=== PATIENT | female | born 1955 | race Caucasian/White ===

== ENCOUNTER 2021-12-16 14:05 | Outpatient (CLI) | payer MEDICARE, OTHER, SELFPAY ==
--- NOTE | 2021-12-16 14:30 | CRLHL7_ITS ---
For Patients: As a result of the Century Cures Act, medical imaging exams and procedure reports are released immediately into your electronic medical record. You may view this report before your referring provider. If you have questions, please contact your health care provider. BILATERAL BREAST MRI WITHOUT AND WITH GADOLINIUM CLINICAL HISTORY: At increased risk for breast cancer due to a personal history LEFT breast cancer diagnosed in 2019 treated with mastectomy and chemotherapy. No current breast related concerns. INDICATION FOR BREAST MRI: High-risk screening breast MRI. COMPARISON STUDIES: Breast MRIs 12/18/2020 and 10/01/2019. Mammograms 06/22/2021 and 05/30/2020. CONTRAST: 20 mL Dotarem. TECHNIQUE: The patient was positioned prone using a breast coil. Multiple imaging sequences were obtained using 1-1.5 mm thick slices with no gap. The image sequences include T2-weighted STIR in the axial plane, T1-weighted nonfat-saturated gradient echo in the axial plane, pre- and post-contrast T1-weighted FLASH 3D with fat suppression in the axial plane, and T1-weighted FLASH high resolution 3D with fat suppression in the sagittal plane. Image post-processing was performed on a [employer] workstation. Complex 3D rendering including maximum intensity projections (MIPS) and volumetric renderings were obtained to optimize visualization of the extent of pathology and relationship to the nipple, skin, and chest wall. This aids in determining feasibility of breast conservation surgery. Subtraction, multiplanar reconstruction, mean curve determination, and angiogenesis mapping were also performed. The study was technically adequate. FINDINGS: Amount of Fibroglandular Tissue: Scattered fibroglandular tissue. Breast Background Enhancement: Mild. RIGHT Breast: There is no suspicious mass or enhancement within the breast. LEFT Breast: Status post mastectomy. No suspicious mass or enhancement in the mastectomy bed. Lymph Nodes: No abnormal morphology lymph nodes. IMPRESSIONS AND RECOMMENDATIONS: 1. No MRI evidence of malignancy in the RIGHT breast or LEFT mastectomy bed. 2. Annual screening mammography is recommended. If clinically indicated, continued screening breast MRI may also be performed, staggered at six-month intervals with screening mammography. BI-RADS Category 2: Benign A lay language report of this examination will be provided to the patient. Dictated by Yanet Aaron MD @ 12/17/2021 10:07:57 AM jj/Dictated by: Yanet Aaron MD @ 12/17/2021 10:08:00 AM (Electronically Signed)
== END 2021-12-16 14:06 | disposition home or self-care (01) ==
PROVIDERS: PCP Family Medicine; Visit Provider Nurse Practitioner Family
DX: Z85.3 Personal history of malignant neoplasm of breast (principal); R92.8 Other abnormal and inconclusive findings on diagnostic imaging of breast
CPT/HCPCS: 77049; A9575

== ENCOUNTER 2022-03-15 09:21 | Outpatient (CLI) | payer MEDICARE, OTHER, SELFPAY ==
[2022-03-15 11:14] LABS: Albumin* 4.5 g/dL (3.3-5.0)
[2022-03-15 11:15] LABS: Chloride* 100 mmol/L (96-114); Potassium* 4.4 mmol/L (3.6-5.1); Sodium* 136 mmol/L (135-149)
[2022-03-15 11:17] LABS: Aspartate Amino Transferase* 31 U/L (12-35); Bilirubin Total* 0.9 mg/dL (0.1-1.5); Carbon Dioxide* 31 mmol/L (20-32); Cholesterol* 271 mg/dL (90-199); Creatinine* 0.7 mg/dL (0.5-1.5); Estimated Glomerular Filt Rate 94 ml/min; Total Protein* 6.8 g/dL (6.0-8.3)
[2022-03-15 11:18] LABS: Alanine Aminotransferase* 17 U/L (4-35); Alkaline Phosphatase* 67 U/L (40-150); Blood Urea Nitrogen* 15 mg/dL (7-30); Calcium* 9.2 mg/dL (8.4-10.6); Glucose* 89 mg/dL (60-115); HDL Cholesterol* 84 mg/dL (>=50); LDL Cholesterol Calculated 169 mg/dL (<100); Triglycerides* 90 mg/dL (40-149)
== END 2022-03-15 09:22 | disposition home or self-care (01) ==
LOC: NFLDREF 09:22
PROVIDERS: PCP Internal Medicine; Visit Provider Family Medicine
DX: Z01.419 Encounter for gynecological examination (general) (routine) without abnormal findings (principal); I10 Essential (primary) hypertension; Z13.6 Encounter for screening for cardiovascular disorders
CPT/HCPCS: 80053; 80061

== ENCOUNTER 2022-05-07 09:00 | Outpatient (RCR) | payer MEDICARE, OTHER, SELFPAY ==
[2022-01-14 08:34] LABS: Albumin* 4.3 g/dL (3.3-5.0); Chloride* 95 mmol/L (96-114); Potassium* 3.6 mmol/L (3.6-5.1); Sodium* 132 mmol/L (135-149)
[2022-01-14 08:36] LABS: Bilirubin Total* 0.8 mg/dL (0.1-1.5); Creatinine* 0.7 mg/dL (0.5-1.5); Estimated Glomerular Filt Rate 94 ml/min
[2022-01-14 08:37] LABS: Alanine Aminotransferase* 15 U/L (4-35); Alkaline Phosphatase* 62 U/L (40-150); Aspartate Amino Transferase* 30 U/L (12-35); Blood Urea Nitrogen* 14 mg/dL (7-30); Carbon Dioxide* 29 mmol/L (20-32); Glucose* 103 mg/dL (60-115); Total Protein* 6.8 g/dL (6.0-8.3)
--- NOTE | 2022-04-12 16:27 | ONC.NURNOTE ---
Called pt to discuss upcoming appts; pt notes she has been having a tender area on the base of her right breast, almost on her rib, that she has been watching for a few months. The tenderness is persistent and now is waking her up at night at times. She notes her left breast cancer was in a similar location on her left breast and was not detected on mammogram or US. Pt is currently following high risk screening protocols; had a clear breast MRI 11/2021 and is planning to have a screening mammogram 05/2022 then f/u with María Capellan CNP. Reviewed with Dr. Cox for next steps; he recommends pt be seen by provider for a breast exam, after which need for imaging will be determined. LM for pt work on fitting into provider schedule.
== END 2022-07-13 23:59 | disposition home or self-care (01) ==
LOC: CCIC 09:00
PROVIDERS: PCP Family Medicine; Visit Provider Nurse Practitioner Family
DX: C50.912 Malignant neoplasm of unspecified site of left female breast (principal); Z17.0 Estrogen receptor positive status [ER+]; Z79.811 Long term (current) use of aromatase inhibitors; M85.80 Other specified disorders of bone density and structure, unspecified site
CPT/HCPCS: 36415; 80053; 99212; 99214

== ENCOUNTER 2022-05-13 10:39 | Outpatient (CLI) | payer MEDICARE, OTHER, SELFPAY ==
--- NOTE | 2022-05-13 11:00 | CRLHL7_ITS ---
For Patients: As a result of the Century Cures Act, medical imaging exams and procedure reports are released immediately into your electronic medical record. You may view this report before your referring provider. If you have questions, please contact your health care provider. Indication: Breast cancer Technique: Post contrast CT chest. 75 cc Isovue 370 intravenous contrast. Please note that all CT scans at this facility use dose modulation, iterative reconstruction, and/or weight-based dosing when appropriate to reduce radiation dose to as low as reasonably achievable. Comparison: Breast MRI 12/16/2021. CT chest 04/23/2021. Findings: Postoperative changes left mastectomy again noted. No intrathoracic adenopathy. Normal right breast tissue. Lungs are clear without pleural effusion, infiltrate, edema or pneumothorax. No pulmonary nodule. No fracture or intrinsic osseous lesion. Upper abdomen normal. Impression: Status post left mastectomy. No evidence of metastatic disease. Please note that all CT scans at this facility use dose modulation, iterative reconstruction, and/or weight-based dosing when appropriate to reduce radiation dose to as low as reasonably achievable. Dictated by Renato Hayes MD @ 05/13/2022 12:21:20 PM (Electronically Signed)
[2022-05-13 11:40] LABS: Creatinine* 0.7 mg/dL (0.5-1.5); Estimated Glomerular Filt Rate 94 ml/min
--- NOTE | 2022-05-13 15:42 | ONC.NURNOTE ---
Reviewed Chest CT results via phone with pt showing no evidence of metastatic disease. BNN to f/u with [facility] team to determine f/u and next steps. Pt agreeable to this plan.
== END 2022-05-13 10:40 | disposition home or self-care (01) ==
PROVIDERS: PCP Internal Medicine; Visit Provider Nurse Practitioner Family
DX: C50.919 Malignant neoplasm of unspecified site of unspecified female breast (principal)
CPT/HCPCS: 36415; 71260; 82565; Q9967

== ENCOUNTER 2022-05-20 14:34 | Outpatient (CLI) | payer MEDICARE, OTHER, SELFPAY ==
--- NOTE | 2022-05-20 15:00 | CRLHL7_ITS ---
For Patients: As a result of the Century Cures Act, medical imaging exams and procedure reports are released immediately into your electronic medical record. You may view this report before your referring provider. If you have questions, please contact your health care provider. DXA BONE MINERAL DENSITY STUDY, 05/20/2022 Reason for exam: Osteoporosis. Current height (inches): 64.5 Weight (lbs.): 162.0 Menopause age: 47 Ethnicity: White 1. Have you had a previous hip or vertebral fracture? No. 2. Have you had any fractures during your adult life which did not result from significant trauma (e.g., auto accident)? No. 3. Did either of your parents have a hip fracture? Yes. 4. Do you smoke? No. 5. Have you ever taken Glucocorticoids? No. 6. Do you have rheumatoid arthritis? No. 7. Do you have secondary osteoporosis? Yes. 8. Do you drink 3 or more alcoholic drinks per day? No. 9. Are you being treated for osteoporosis? Yes. 10. Have you ever taken any of the following medications: Actonel, Evista, Fosamax, Miacalcin, Reclast, Boniva, Forteo, HRT (i.e., estrogen/hormone therapy), Protelos, Prolia, Vitamin D, Calcium, other ??? please specify. ANSWER: Yes; Fosamax, Reclast, vitamin D, calcium. 11. Do you have any of the following medical conditions: Anorexia or bulimia, asthma or emphysema, end stage renal disease, hyperparathyroidism, any seizure disorders, cancer, inflammatory bowel diseases, hysterectomy, other ??? please specify. ANSWER: Yes; cancer, hysterectomy. 12. What was your maximum height (inches)? 66. 13. Do you perform weightbearing exercise regularly? Yes. 14. Do you regularly consume dairy products? Yes. 15. Do you drink caffeinated beverages? Yes. 16. At what age did your period start? 11. 17. Are you premenopausal? No. 18. How many full-term pregnancies have you had? 3. 19. Have you ever missed your period for more than 6 months in a row (not including or menopause)? Yes. TECHNIQUE: Bone mineral density study was performed using the [employer]. FINDINGS: The results of the study expressed as bone mineral density (BMD) are as follows: Lumbar Spine L1 to L4: BMD: 0.710 g/cm2. T-score: -3.1. Z-score: -1.0. Neck Left: BMD: 0.643 g/cm2. T-score: -1.9. Z-score: -0.1. Right: BMD: 0.641 g/cm2. T-score: -1.9. Z-score: -0.1. Total Left: BMD: 0.805 g/cm2. T-score: -1.1. Z-score: 0.3. Right: BMD: 0.790 g/cm2. T-score: -1.2. Z-score: 0.2. IMPRESSION: Osteoporosis. COMPARISON: Compared with scan of 06/19/2020, the bone mineral density has increased by 3.0% at the spine and increased by 3.6% at the hip. *Comparison exams done prior to 09/2019 were performed on different unit, [employer]. ADAN YEPEZ M.D. Diagnostic/Nuclear Medicine Radiologist [email or web address] Transcribed: 5:[address]/Dictated by: Adan Yepez MD @ 05/20/2022 4:36:00 PM (Electronically Signed)
== END 2022-05-20 14:35 | disposition home or self-care (01) ==
LOC: RAD 14:35
PROVIDERS: PCP Internal Medicine; Visit Provider Nurse Practitioner Family
DX: M85.80 Other specified disorders of bone density and structure, unspecified site (principal); M81.0 Age-related osteoporosis without current pathological fracture; Z78.0 Asymptomatic menopausal state
CPT/HCPCS: 77080

== ENCOUNTER 2022-06-23 10:26 | Outpatient (CLI) | payer MEDICARE, OTHER, SELFPAY ==
--- NOTE | 2022-06-23 10:45 | CRLHL7_ITS ---
For Patients: As a result of the Century Cures Act, medical imaging exams and procedure reports are released immediately into your electronic medical record. You may view this report before your referring provider. If you have questions, please contact your health care provider. BILATERAL SCREENING MAMMOGRAM WITH COMPUTER-AIDED DETECTION AND TOMOSYNTHESIS TECHNIQUE: CC and MLO views were obtained. These mammographic images have been obtained using full-field digital technique. These mammographic images were interpreted with the benefit of computer-aided detection. Breast Tomosynthesis was used in this interpretation. COMPARISON FILM: MRI 12/16/21, 06/22/21, MRI 12/18/20. FINDINGS: There are scattered areas of fibroglandular density IMPRESSION: There is no radiographic evidence for malignancy. ASSESSMENT: BI-RADS Category 1: Negative RECOMMENDATION: Routine screening mammogram in 1 year. A lay language report of this examination will be provided to the patient. Vik Castillo M.D. Diagnostic/Nuclear Medicine Radiologist [email or web address] ABHIJEET/Dictated by: Vik Castillo MD @ 06/23/2022 11:25:00 AM (Electronically Signed)
== END 2022-06-23 10:27 | disposition home or self-care (01) ==
PROVIDERS: PCP Family Medicine; Visit Provider Nurse Practitioner Family
DX: Z12.31 Encounter for screening mammogram for malignant neoplasm of breast (principal)
CPT/HCPCS: 77063; 77067

== ENCOUNTER 2022-12-28 12:51 | Outpatient (CLI) | payer MEDICARE, OTHER, SELFPAY ==
--- NOTE | 2022-12-28 13:00 | CRLHL7_ITS ---
For Patients: As a result of the Century Cures Act, medical imaging exams and procedure reports are released immediately into your electronic medical record. You may view this report before your referring provider. If you have questions, please contact your health care provider. BILATERAL BREAST MRI WITHOUT AND WITH GADOLINIUM CLINICAL HISTORY: 67 year old female with elevated risk of breast cancer due to personal history of treated LEFT breast cancer (mastectomy). INDICATION FOR BREAST MRI: Screening breast MRI in this high-risk woman. COMPARISON STUDIES: Mammogram 06/23/2022, breast MRI 12/16/2021. CONTRAST: 15 cc of dotarem. TECHNIQUE: The patient was positioned prone using a breast coil. Multiple imaging sequences were obtained using 1-1.5 mm thick slices with no gap. The image sequences include T2-weighted STIR in the axial plane, T1-weighted nonfat-saturated gradient echo in the axial plane, pre- and post-contrast T1-weighted FLASH 3D with fat suppression in the axial plane, and T1-weighted FLASH high resolution 3D with fat suppression in the sagittal plane. Image post-processing was performed on a [employer] workstation. Complex 3D rendering including maximum intensity projections (MIPS) and volumetric renderings were obtained to optimize visualization of the extent of pathology and relationship to the nipple, skin, and chest wall. This aids in determining feasibility of breast conservation surgery. Subtraction, multiplanar reconstruction, mean curve determination, and angiogenesis mapping were also performed. The study was technically adequate. FINDINGS: Amount of Fibroglandular Tissue: Scattered fibroglandular tissue. Breast Background Enhancement: Mild. RIGHT Breast: There are no suspicious areas of enhancement. LEFT Breast: Post-surgical changes of mastectomy. No abnormality is seen. There are no suspicious areas of enhancement. Lymph Nodes: No adenopathy. IMPRESSIONS AND RECOMMENDATIONS: Benign, there is no MRI evidence of malignancy. Continue annual screening mammography. BI-RADS Category 2: Benign Dictated by Keya Lewis MD @ 12/29/2022 12:54:39 PM/errol ABHIJEET/Dictated by: Keya Lewis MD @ 12/29/2022 12:36:00 PM (Electronically Signed)
== END 2022-12-28 12:52 | disposition home or self-care (01) ==
LOC: MRI 12:52
PROVIDERS: PCP Family Medicine; Visit Provider Internal Medicine Hematology & Oncology
DX: C50.919 Malignant neoplasm of unspecified site of unspecified female breast (principal); Z12.39 Encounter for other screening for malignant neoplasm of breast
CPT/HCPCS: 77049; 85379; A9575

== ENCOUNTER 2023-01-03 10:13 | Emergency (ER) | payer MEDICARE, OTHER, SELFPAY ==
[2023-01-03] VITALS (21 sets, daily range): BP systolic 135–148; BP diastolic 89–95; PULSE 65–83; RESP 16–20; TEMP 37.2; O2SAT 81–100; BMI 27.1
--- NOTE | 2023-01-03 11:44 | ED_ITS ---
HPI - General Adult General Date Seen: 01/03/23 Chief complaint: Shortness of Breath/Dyspnea Stated complaint: Short of breath Time Seen by Provider: 01/03/23 11:06 Source: patient Mode of arrival: ambulatory Limitations: no limitations History of Present Illness HPI narrative: Patient is a 67-year-old female presenting to the emergency department for shortness of breath. She states symptoms have been going on for the past 2 months of been gradually getting worse. She saw primary doctor a week and half ago for the symptoms. She states she is barely walk around without issue and now she gets short of breath taking a few steps. She she states she feels short of breath just sitting in the chair. She states she is having some chest pressure but admits the symptoms are going on for several weeks. She does states she has breast cancer and a breast MRI few weeks ago that was normal. She states she has finish treatment for it. Denies abdominal pain, lower extremity swelling, irregular heart rate, tachycardia, fevers, chills, abdominal pain. She states she has no other medical issues. Related Data Home Medications Medication Instructions Recorded Confirmed alendronate 70 mg tablet 70 mg PO QWEEK 12/31/21 01/03/23 calcium carbonate 500 mg calcium 1,000 mg PO BID 12/31/21 01/03/23 (1,250 mg) tablet oobnnnlbnad-ishfcwhqs-lhf C-Mn 500 cap PO QDAY 12/31/21 12/22/22 mg-400 mg capsule (Glucosamine Chondroitin Maximum Strength) vitamin E mixed 400 unit tablet unit PO QDAY 12/31/21 12/22/22 cetirizine 5 mg-pseudoephedrine ER 1 tab PO BID PRN 03/17/22 01/03/23 120 mg tablet,extended release,12hr (Zyrtec-D) lutein extract 15 mg-zeaxanthin 1 cap PO 03/17/22 12/22/22 extract 0.7 mg capsule magnesium 200 mg tablet 400 mg PO QDAY 03/17/22 01/03/23 cholecalciferol (vitamin D3) 125 125 mcg PO QDAY 10/28/22 01/03/23 mcg (5,000 unit) capsule Previous Rx's Medication Instructions Recorded chlorthalidone 25 mg tablet 25 mg PO QDAY #90 tabs 03/17/22 clonidine HCl 0.1 mg tablet 0.1 mg PO BID #180 tabs 03/17/22 letrozole 2.5 mg tablet (Femara) 2.5 mg PO Q24H #90 tabs 10/28/22 albuterol sulfate 90 mcg/actuation 2 puff inhalation Q4-6H PRN 12/22/22 aerosol inhaler shortness of breath or wheezing #1 packet Allergies Allergy/AdvReac Type Severity Reaction Status Date / Time midazolam Allergy Severe unknown Verified 12/22/22 08:59 naproxen Allergy Severe Verified 12/22/22 08:59 dexamethasone Allergy Mild Fast heart Uncoded 12/22/22 08:59 rate versed Allergy Mild Diarrhea Uncoded 12/22/22 08:59 Review of Systems Status of ROS: Reports: 10 or more systems reviewed and unremarkable except as noted in History and below [facility] Medical History (Updated 01/03/23 @ 16:17 by Juan Alegria DO) Constriction of bronchial airway ?J98.09 - Other diseases of bronchus, not elsewhere classified (ICD-10) Dyspnea ?R06.00 - Dyspnea, unspecified (ICD-10) Severe carpal tunnel syndrome of right wrist ?G56.01 - Carpal tunnel syndrome, right upper limb (ICD-10) Surgical History (Updated 10/01/22 @ 16:48 by Saima Armijo MD) S/P hysterectomy (04/2006) ?Z90.710 - Acquired absence of both cervix and uterus (ICD-10) Status post left mastectomy (09/2019) ?Z90.12 - Acquired absence of left breast and nipple (ICD-10) Family History (Updated 10/01/22 @ 16:53 by Saima Armijo MD) Unknown Hemochromatosis Father Diabetes Heart disease High blood pressure High cholesterol Ulcerative colitis Mother Heart disease High blood pressure Osteoporosis Daughter Crohn's disease Ovarian cancer, Onset Age: 45 Hemochromatosis Maternal Grandmother Breast cancer, Onset Age: 71 Osteoporosis Brother Ulcerative colitis Diabetes High cholesterol Social History (Updated 10/01/22 @ 16:53 by Saima Armijo MD) Narrative: SOCIAL HISTORY: . Homemaker. walks 3-4 x/week for exercise. HABITS: Nonsmoker. One or 2 alcoholic beverages per week. No recreational drug use. FAMILY HISTORY: No personal or family history of anesthesia reactions or bleeding disorders. She tells me that Versed has not been very effective for her but no problems with general anesthesia. Brother and father with diabetes. Highest level of school completed/degree received: Bachelor's degree Smoking Status: Never smoker Do you use any of these nicotine containing products: None Second hand tobacco smoke exposure: No How often do you have a drink containing alcohol: monthly or less How many standard drinks containing alcohol do you have on a typical day: 1 or 2 How often do you have six or more drinks on one occasion: Never AUDIT-C Alcohol total score: 1 Non-prescribed substance use: denies use Are you now , , , , never or living with a partner: Social isolation score (0-1 are the most socially isolated patients): 1 Little interest or pleasure in doing things: not at all Feeling down, depressed, or hopeless: not at all Do you think of yourself as: straight/heterosexual Gender Identity: female service: No Exam Narrative: Exam Narrative: Const: Well-nourished, Well-developed, in mild distress Eyes: PERRL, no conjunctival injection, and symmetrical lids ENMT: Atraumatic external nose and ears. Moist mucous membranes. Neck: Symmetric, trachea midline, No thyromegaly. CVS: RRR, No murmurs or gallops. Peripheral pulses 2+ and equal in all extremities RESP: Unlabored respiratory effort. Clear to auscultation bilaterally. GI: Nontender/Nondistended, No rebound or guarding. MSK:Extremities w/o deformity, Normal Active ROM Skin: Warm, Dry. No rashes or lesions. Neuro: Normal Muscle tone, No focal neurological deficits. Psych: Awake, Alert, & Oriented x3. Appropriate mood and affect. Const: Vital Signs, click to edit/add: Vital Signs - 24 hr 01/03/23 10:42 01/03/23 12:12 01/03/23 12:15 Temperature 98.9 F Pulse Rate 76 75 Pulse Rate [Right Pulse Oximeter] 79 Respiratory Rate 16 Blood Pressure Blood Pressure [Ri ght Upper Arm] 135/89 Pulse Oximetry 100 100 99 Oxygen Delivery Me thod Room Air 01/03/23 12:30 01/03/23 12:45 01/03/23 13:07 Temperature Pulse Rate 78 75 77 Pulse Rate [Right Pulse Oximeter] Respiratory Rate Blood Pressure Blood Pressure [Ri ght Upper Arm] Pulse Oximetry 98 97 100 Oxygen Delivery Me thod 01/03/23 13:15 01/03/23 13:30 01/03/23 13:45 Temperature Pulse Rate 83 72 70 Pulse Rate [Right Pulse Oximeter] Respiratory Rate Blood Pressure Blood Pressure [Ri ght Upper Arm] Pulse Oximetry 97 100 98 Oxygen Delivery Me thod 01/03/23 14:00 01/03/23 14:15 01/03/23 14:30 Temperature Pulse Rate 72 73 68 Pulse Rate [Right Pulse Oximeter] Respiratory Rate Blood Pressure Blood Pressure [Ri ght Upper Arm] Pulse Oximetry 100 89 100 Oxygen Delivery Me thod 01/03/23 14:45 01/03/23 15:02 01/03/23 15:03 Temperature Pulse Rate 66 65 70 Pulse Rate [Right Pulse Oximeter] Respiratory Rate Blood Pressure 148/95 H Blood Pressure [Ri ght Upper Arm] Pulse Oximetry 100 100 81 L Oxygen Delivery Me thod 01/03/23 15:04 01/03/23 15:15 01/03/23 15:30 Temperature Pulse Rate 65 72 Pulse Rate [Right Pulse Oximeter] 69 Respiratory Rate 20 Blood Pressure Blood Pressure [Ri ght Upper Arm] 148/95 H Pulse Oximetry 96 99 98 Oxygen Delivery Me thod Room Air 01/03/23 15:45 01/03/23 16:00 01/03/23 16:15 Temperature Pulse Rate 73 69 70 Pulse Rate [Right Pulse Oximeter] Respiratory Rate Blood Pressure Blood Pressure [Ri ght Upper Arm] Pulse Oximetry 99 100 100 Oxygen Delivery Me thod Course Vital Signs Vital signs: Initial Vital Signs Temperature 98.9 F 01/03/23 10:42 Temperature Source Temporal Artery Scan 01/03/23 10:42 Pulse Rate 79 01/03/23 10:42 Pulse Rhythm Regular 01/03/23 10:42 Respiratory Rate 16 01/03/23 10:42 Blood Pressure 135/89 01/03/23 10:42 Blood Pressure Mean 104 01/03/23 10:42 Blood Pressure Position Sitting 01/03/23 10:42 Pulse Oximetry 100 01/03/23 10:42 Oxygen Delivery Method Room Air 01/03/23 10:42 Vital Signs Temperature 98.9 F 01/03/23 10:42 Pulse Rate 79 01/03/23 10:42 Respiratory Rate 16 01/03/23 10:42 Blood Pressure 135/89 01/03/23 10:42 Pulse Oximetry 100 01/03/23 10:42 Oxygen Delivery Method Room Air 01/03/23 10:42 Temperature 98.9 F 01/03/23 10:42 Pulse Rate 70 01/03/23 16:15 Respiratory Rate 20 01/03/23 15:04 Blood Pressure 148/95 H 01/03/23 15:04 Pulse Oximetry 100 01/03/23 16:15 Oxygen Delivery Method Room Air 01/03/23 15:04 Medical Decision Making MDM Narrative Medical decision making narrative: Patient is a 67 year female presenting to the emergency department for shortness of breath. Symptoms have gone 1st several months now. She feels like it is getting worse. She has seen her primary care provider and given inhalers to use which she has been using. She states they have been helping when she uses them. Denies any other concerns at this time. She has a history of blood clots and a D-dimer was ordered. BNP was ordered to look for signs of heart failure, but this time it seems unlikely as her lungs sounded clear and she has no lower extremity edema. Unlikely to be pneumothorax but will order imaging. COVID/flu worse ordered. EKG and troponin were also ordered. CBC and BMP with magnesium ordered. Lab workup returns no concerning abnormalities. Her sodium was 129 but she states she chronically has a low sodium and hyponatremia likely would not cause her current symptoms. She was given a L of normal saline. BNP is 142. D-dimer is 0.48. COVID a and flu were negative. Will still order a CT scan of the patient's chest. She is concerned that her previous breast cancer could have gone to her lungs. Results returned showing no concerning abnormalities. She is still doing well and can be discharged home. I for to follow up with the primary care provider informed that the breathing treatments have been helping. She is agreeable to this plan. Lab Data Labs: Lab Results 01/03/23 Range/Units 11:55 WBC 6.30 (4.50-11.00) K/uL RBC 4.61 (4.00-5.20) m/uL Hgb 13.9 (12.0-16.0) gm/dL Hct 41.4 (33.0-51.0) % MCV 90 (80-100) fL MCH 30 (26-34) pg MCHC 34 (32-36) gm/dL RDW Coeff of Jose 12.1 (11.5-15.5) % Plt Count 261 (140-440) K/uL Neut % (Auto) 72.6 H (42.0-72.0) % Lymph % (Auto) 17.8 L (20-44) % Meeker % (Auto) 8.1 (0.0-11.0) % Eos % (Auto) 1.0 (0.0-7.0) % Baso % (Auto) 0.3 (0.0-3.0) % Neut # (Auto) 4.60 (1.7-7.0) K/uL Lymph # (Auto) 1.10 (0.90-2.90) K/uL Meeker # (Auto) 0.50 (0.00-0.90) K/UL Eos # (Auto) 0.06 (0.00-0.50) K/uL Baso # (Auto) 0.02 (0.00-0.30) K/uL Abs Immat Gran (auto) 0.01 (0.00-0.30) K/uL Imm/Tot Granulo (auto) 0.2 % D-Dimer Quant (PE/DVT) 0.48 (0.00-0.50) ug/ml Sodium 129 L (135-149) mmol/L Potassium 3.6 (3.6-5.1) mmol/L Chloride 92 L (96-114) mmol/L Carbon Dioxide 32 (20-32) mmol/L Anion Gap 5 L (7-15) mEq/L BUN 14 (7-30) mg/dL Creatinine 0.7 (0.5-1.5) mg/dL Estimated Creat Clear 45.85 Estimated GFR 94 ml/min Glucose 90 (60-115) mg/dL Calcium 9.6 (8.4-10.6) mg/dL Magnesium 2.1 (1.5-2.6) mg/dL Troponin I < 0.01 L (0.01-0.04) ng/mL NT-Pro-B Natriuret Pep 142 pg/mL SARS-CoV-2 (PCR) Negative SARS-CoV-2 (Negative) Influenza Type A (PCR) Negative PCR FLU A (Negative) Influenza Type B (PCR) Negative PCR FLU B (Negative) Imaging Data Chest CT: Radiologist's impression: INDICATION: Chest pain, short of breath. COMPARISON: 08/02/2022 CT abdomen pelvis. TECHNIQUE: CT chest without contrast. Multiplanar axial, coronal, and sagittal reformats are included. FINDINGS: The lungs are very well expanded. Mild reticular changes in the paraspinal right lower lobe, similar compared to previous. No pulmonary nodule or mass. Normal appearance of the pulmonary interstitium. No pleural effusion. No pneumothorax or pneumomediastinum. No thoracic adenopathy. Mildly dilated ascending aorta. Atherosclerotic coronary artery calcifications. Included upper abdomen appears normal. Osseous degenerative change. No focally worrisome lesions. Left mastectomy. IMPRESSION: No CT explanation for the patient`s chest pain. Please note that all CT scans at this facility use dose modulation, iterative reconstruction, and/or weight-based dosing when appropriate to reduce radiation dose to as low as reasonably achievable. Dictated by Kathleen Rossi MD @ 01/03/2023 3:36:16 PM ECG Data Attestation: I personally reviewed and interpreted this ECG as follows: Prior ECG tracings: available for review (12/30/2022) Interpretation: Normal sinus rhythm rate 76 beats per minute, normal intervals, normal axis, no ST or T-wave abnormalities. Appears similar to previous EKGs on file Discharge Plan Discharge Clinical Impression: Shortness of breath, Hyponatremia Patient Disposition: Home, Self-Care Condition: Stable Instructions: Shortness of Breath (ED) Additional Instructions: Continue to use your inhalers. Speak to your primary care provider not know the inhalers are helping. Return for new or worsening symptoms. Prescriptions: No Action magnesium 200 mg tablet 400 mg PO QDAY lutein extract-zeaxanthin ext 15-0.7 mg capsule 1 cap PO chlorthalidone 25 mg tablet 25 mg PO QDAY Qty: 90 3RF clonidine HCl 0.1 mg tablet 0.1 mg PO BID Qty: 180 3RF albuterol sulfate 90 mcg/actuation HFA aerosol inhaler 2 puff inhalation Q4-6H PRN (Reason: shortness of breath or wheezing) Qty: 1 0RF alendronate 70 mg tablet 70 mg PO QWEEK calcium carbonate 500 mg calcium (1,250 mg) tablet 1,000 mg PO BID vitamin E mixed 400 unit tablet PO QDAY uzkpxrlgoko-bxfamslhl-rff C-Mn [Glucosamine Chondroitin MaxStr] 500-400 mg capsule PO QDAY cetirizine-pseudoephedrine [Zyrtec-D] 5-120 mg tablet extended release 12 hr 1 tab PO BID PRN cholecalciferol (vitamin D3) 125 mcg (5,000 unit) capsule 125 mcg PO QDAY letrozole [Femara] 2.5 mg tablet 2.5 mg PO Q24H Qty: 90 1RF Follow Up/Referrals: Darvin Simpson MD [Primary Care Provider] - Stand Alone Forms: [employer] Info Instructions
[2023-01-03 12:09] LABS: Basophils Absolute Auto 0.02 K/uL (0.00-0.30); Basophils Percent Auto 0.3 % (0.0-3.0); Eosinophils Absolute Auto 0.06 K/uL (0.00-0.50); Hematocrit 41.4 % (33.0-51.0); Hemoglobin* 13.9 gm/dL (12.0-16.0); Immature Granulocytes Abs Auto 0.01 K/uL (0.00-0.30); Immature Granulocytes Pct Auto 0.2 %; Lymphocytes Percent Auto 17.8 % (20-44); Mean Corpuscular HGB Conc 34 gm/dL (32-36); Mean Corpuscular Hemoglobin 30 pg (26-34); Mean Corpuscular Volume 90 fL (80-100); Monocytes Percent Auto 8.1 % (0.0-11.0); Neutrophils Percent Auto 72.6 % (42.0-72.0); Platelet Count* 261 K/uL (140-440); RDW Coefficient of Variation % 12.1 % (11.5-15.5); Red Blood Count 4.61 m/uL (4.00-5.20)
[2023-01-03 12:19] LABS: Slide Review Reflex No
[2023-01-03 12:26] LABS: Chloride* 92 mmol/L (96-114)
[2023-01-03 12:27] LABS: Potassium* 3.6 mmol/L (3.6-5.1); Sodium* 129 mmol/L (135-149)
[2023-01-03 12:29] LABS: Creatinine* 0.7 mg/dL (0.5-1.5); Est. Creatinine Clearance* 45.85; Estimated Glomerular Filt Rate 94 ml/min
[2023-01-03 12:30] LABS: Anion Gap 5 mEq/L (7-15); Blood Urea Nitrogen* 14 mg/dL (7-30); Calcium* 9.6 mg/dL (8.4-10.6); Carbon Dioxide* 32 mmol/L (20-32); Glucose* 90 mg/dL (60-115)
[2023-01-03 12:31] LABS: Magnesium* 2.1 mg/dL (1.5-2.6)
[2023-01-03 12:32] LABS: D Dimer Quantitative* 0.48 ug/ml (0.00-0.50)
[2023-01-03 12:43] LABS: NT Pro B Type NatriureticPept* 142 pg/mL; Troponin I* < 0.01 ng/mL (0.01-0.04)
[2023-01-03 12:47] LABS: PCR FLU A Negative PCR FLU A (Negative); PCR FLU B Negative PCR FLU B (Negative)
[2023-01-03 12:49] LABS: SARS PCR* Negative SARS-CoV-2 (Negative)
--- NOTE | 2023-01-03 12:50 | CT_ITS ---
Patient: MARLENE RODRIGUEZ Facility:?[facility] Patient ID:?[id number] Site Patient ID:?[id number]. Site :?[id number] Study:?CT-Chest W/O-01/03/2023 1:26:10 PM Ordering Physician:Hiram Martinez Final Report: INDICATION: Chest pain, short of breath. COMPARISON: 08/02/2022 CT abdomen pelvis. TECHNIQUE: CT chest without contrast. Multiplanar axial, coronal, and sagittal reformats are included. FINDINGS: The lungs are very well expanded. Mild reticular changes in the paraspinal right lower lobe, similar compared to previous. No pulmonary nodule or mass. Normal appearance of the pulmonary interstitium. No pleural effusion. No pneumothorax or pneumomediastinum. No thoracic adenopathy. Mildly dilated ascending aorta. Atherosclerotic coronary artery calcifications. Included upper abdomen appears normal. Osseous degenerative change. No focally worrisome lesions. Left mastectomy. IMPRESSION: No CT explanation for the patient`s chest pain. Please note that all CT scans at this facility use dose modulation, iterative reconstruction, and/or weight-based dosing when appropriate to reduce radiation dose to as low as reasonably achievable. Dictated by Kathleen Rossi MD @ 01/03/2023 3:36:16 PM Signed by:?Kathleen Rossi MD @01/03/2023 3:36:16 PM (Electronic Signature)
[2023-01-03] MEDS: 0.9 % SODIUM CHLORIDE 1000 ml 1,000 ML IV (13:13)
== END 2023-01-03 16:30 | disposition home or self-care (01) ==
PROVIDERS: Emergency Provider Student in an Organized Health Care Education/Training Program; PCP Family Medicine
DX: R06.02 Shortness of breath (principal); E87.1 Hypo-osmolality and hyponatremia
CPT/HCPCS: 36415; 71250; 80048; 83735; 83880; 84484; 85025; 85379; 87631; 93005; 99283; 99284; J7030

== ENCOUNTER 2023-01-25 12:47 | Outpatient (CLI) | payer MEDICARE, OTHER, SELFPAY ==
[2023-01-25 13:50] VITALS: BP 159/75; PULSE 85
--- NOTE | 2023-01-25 13:59 | W.PM.STED ---
Stress Test Note Date Date of test: 01/25/23 Providers Primary care provider: Darvin Simpson Stress test physician: Alexis Burciaga Stress Test Note Stress test ordered: Stress Echo Indication for test: Dyspnea Results discussion: Patient is a very nice 67-year-old female presents here for the above test after discussion the risks benefits side effects she would like to proceed cardiac stress test medical history form is reviewed in detail. Pretest EKG shows normal sinus rhythm, with a ventricular rate of 68 and a blood pressure 166/96. Patient is exercised for a total time of 5 minutes 13 seconds she had a metabolic equivalent of 7.1 Mets with a maximum heart rate of 157 which is 122% of the maximum, conditioning was felt to be moderate, test is terminated because of fatigue. She did not have any chest pain, she had some mild shortness of breath. Review of the tracing showed occasional PVCs, to have some mild ST wave depression of 2 mm noted in leads 2 3 and AVF, and 1.5 mm depression notable in leads V4 through V6. Results are indeterminate, and not totally diagnostic of ischemia. Impression: Mild ST wave changes both inferiorly and laterally. These recovered normally in the recovery period. Follow up suggested: Await echo results, clinical correlation with these will be needed. Patient has moderate to poor exercise tolerance. Patient left this testing facility in good condition,
== END 2023-01-25 12:48 | disposition home or self-care (01) ==
LOC: STRESS 12:47
PROVIDERS: PCP Family Medicine; Visit Provider Family Medicine
DX: R06.09 Other forms of dyspnea (principal); I35.1 Nonrheumatic aortic (valve) insufficiency; R07.9 Chest pain, unspecified; R01.1 Cardiac murmur, unspecified
CPT/HCPCS: 93016; 93325; 93351

== ENCOUNTER 2023-01-27 10:00 | Outpatient (RCR) | payer MEDICARE, OTHER, SELFPAY | END 2023-02-15 23:59 | disposition home or self-care (01) | LOC: CCIC 10:00 | PROVIDERS: PCP Family Medicine; Visit Provider Physician Assistant | DX: C50.912 Malignant neoplasm of unspecified site of left female breast (principal); Z17.0 Estrogen receptor positive status [ER+]; Z79.811 Long term (current) use of aromatase inhibitors; Z90.12 Acquired absence of left breast and nipple; R06.00 Dyspnea, unspecified; M81.0 Age-related osteoporosis without current pathological fracture; R22.32 Localized swelling, mass and lump, left upper limb | CPT/HCPCS: 99212; 99214; 99215 ==

== ENCOUNTER 2023-02-11 09:57 | Outpatient (CLI) | payer MEDICARE, OTHER, SELFPAY ==
--- NOTE | 2023-02-11 10:15 | CRLHL7_ITS ---
For Patients: As a result of the Cures Act, medical imaging exams and procedure reports are released immediately into your electronic medical record. You may view this report before your referring provider. If you have questions, please contact your health care provider. INDICATION: Left axillary fullness. History of left-sided breast cancer approximately three years ago. Mastectomy. Left axillary lymph node dissection. Chemotherapy. No radiation therapy. Follow-up a palpable abnormality of the left axilla. TECHNIQUE: Directed left axillary ultrasound with this radiologist present. COMPARISON: Correlation is made with a chest CT January 03, 2023. Correlation is made with an MRI December 28, 2022. FINDINGS: Negative directed left axillary ultrasound. No mass. No areas of shadowing. No lymphadenopathy. No fluid collections. These findings were discussed in detail with the patient. IMPRESSION: Negative directed left axillary ultrasound. BI-RADS Category 1: Negative. Dictated by Vik Castillo MD @ 02/11/2023 1:54:18 PM (Electronically Signed)
== END 2023-02-11 09:58 | disposition home or self-care (01) ==
LOC: US 09:58
PROVIDERS: PCP Family Medicine; Visit Provider Physician Assistant
DX: R22.32 Localized swelling, mass and lump, left upper limb (principal); C50.919 Malignant neoplasm of unspecified site of unspecified female breast
CPT/HCPCS: 76882

== ENCOUNTER 2023-03-16 08:02 | Outpatient (CLI) | payer MEDICARE, OTHER, SELFPAY | END 2023-03-16 08:03 | disposition home or self-care (01) | LOC: NFLDREF 03-18 19:25 | PROVIDERS: PCP Family Medicine; Referring Provider Family Medicine; Visit Provider Family Medicine | DX: Z00.00 Encounter for general adult medical examination without abnormal findings (principal); E78.5 Hyperlipidemia, unspecified; I10 Essential (primary) hypertension; M81.0 Age-related osteoporosis without current pathological fracture | CPT/HCPCS: 80053; 80061 ==

== ENCOUNTER 2023-05-16 13:50 | Outpatient (CLI) | payer MEDICARE, OTHER, SELFPAY ==
--- OUTSIDE RECORDS SUMMARY | 2023-05-16 13:55 | XMS_ITS | Encounter Summary ---
Author Name Unknown Organization [facility] Address [address] [place] [address] Care Team Providers Care Spiral Winder Name Role Phone Unassigned, Pcp Primary Care Provider Unavailabl e Encounter Details Date Type Department Care Team (Late st Contact Info) Description 08/31/2022 10:55 AM CDT Ancillary Procedure Department of Dermatology Social History Tobacco Use Types Packs/Day Years Used Date Smoking Tobacco: Never Smokeless Tobacco: Never Alcohol Use Standard Drinks/Week Comments Yes 2 (1 standard drink = 0.6 oz pur e alcohol) Humiliation, Afraid, Rape, and Kick questionnair e Answer Date Recorded Within the last year, have y ou been afraid of your partner or ex-partner? No 06/09/2022 Within the last year, have y ou been humiliated or emotionally abused in other ways by your partner or ex-partner? No Within the last year, have y ou been kicked, hit, slapped, or otherwise physically hurt by your partner or ex-partner? No 06/09/2022 Within the last year, have y ou been raped or forced to have any kind of sexual activity by your partner or ex-partner? No 06/09/2022 Social Connection and Isolat ion Panel [NHANES] Answer Date Recorded In a typical week, how many times do you talk on the phone with family, friends, or neighbors? Once a week 06/09/2022 How often do you get togethe r with friends or relatives? Three times a week 06/09/2022 How often do you attend [facility] or adventist services? More than 4 times per year 06/09/2022 Do you belong to any clubs o r organizations such as evangelical groups, unions, fraternal or athletic groups, or school groups? Yes 06/09/2022 How often do you attend meet ings of the clubs or organizations you belong to? More than 4 times per year 06/09/2022 Are you , , di vorced, , never , or living with a partner? 06/09/2022 AUDIT-C Answer Date Recorded Q1: How often do you have a drink containing alc ohol? 2-4 times a month 06/09/2022 Q2: How many drinks containi ng alcohol do you have on a typical day when you are drinking? 1 or 2 06/09/2022 Q3: How often do you have si x or more drinks on one occasion? Never 06/09/2022 Overall Financial Resource Strain (CARDIA) Answe r Date Recorded How hard is it for you to pa y for the very basics like food, housing, medical care, and heating? Not hard at all 06/09/2022 [facility] - Occupational Stress Questionnaire Answer Date Recorded Do you feel stress - tense, restless, nervous, or anxious, or unable to sleep at night because your mind is troubled all the time - these days? Rather much 06/09/2022 Exercise Vital Sign Answer Date Recorde d On average, how many days pe r week do you engage in moderate to strenuous exercise (like a brisk walk)? 4 days 06/09/2022 On average, how many minutes do you engage in exercise at this level? 20 min 06/09/2022 Hunger Vital Sign Answer Date Recorded Within the past 12 months, y ou worried that your food would run out before you got the money to buy more. Never true 06/09/19 23 Within the past 12 months, t he food you bought just didn't last and you didn't have money to get more. Never true 06/09/2022 PRAPARE - Transportation Answer Date Re corded In the past 12 months, has l ack of transportation kept you from medical appointments or from getting medications? No 05/26 In the past 12 months, has l ack of transportation kept you from meetings, work, or from getting things needed for daily living? No 06/09/2022 Housing Stability Vital Sign Answer Philip e Recorded In the last 12 months, was t here a time when you were not able to pay the mortgage or rent on time? No 06/09/2022 In the last 12 months, how many places have you lived? 1 06/09/2022 In the last 12 months, was t here a time when you did not have a steady place to sleep or slept in a half-way (including now)? No 06/09/2022 Nutrition Answer Date Recorded Nutrition: EVOO Fat Source Yes 06/09 On average, how many serving s of fruits and vegetables do you eat per day (serving size is equal to 1 cup or approximately the size of a tennis ball)? 4-5 06/09/2022 Dental Answer Date Recorded Dental: Regular Dentist Yes 08/29/19 Employment Answer Date Recorded Employment status Retired 06/09/2022 Education Answer Date Recorded What is the highest level of school you have completed or the highest degree you have received? Some college, no degree 08/28/2020 Sex and Gender Information Value Date Recorded Sex Assigned at Female 05/20/2021 9:04 AM TECHNICAL APPLICATIONS SCIENTIST Gender Identity Female 05/20/2021 9:04 AM TECHNICAL APPLICATIONS SCIENTIST Sexual Orientation Straight 05/20/2021 9: 04 AM TECHNICAL APPLICATIONS SCIENTIST documented as of this encounter Plan of Treatment Upcoming Encounters Date Type Department Care Team (Late st Contact Info) Description 08/30/2023 4:00 PM CDT Office Visit Department of Dermatology in [address] [phone] Annabel Jarrell M.D. [address] [place] [phone] Discharge Disposition: Home or Self Care documented as of this encounter Procedures Procedure Name Priority Date/Time Associated Diagnosis Comments DERMATOLOGY IMAGE EXAM Routine 08/31/2022 10:50 AM CDT documented in this encounter Results * Nose 510-Dermatology Image Exam (08/31/2022 10:50 AM CDT) 08/31/2022 10:4 8 AM CDT Narrative [facility] - 08/31/2022 10:50 AM CDT This order has been created and auto-finalized to support the import of images acquired without order. The clinical documentation to support these images can be found on the encounter that produced images. Provider Not In System IMG NON RAD IMAGI NG PROCEDURES [facility] NA documented in this encounter Visit Diagnoses Not on filedocumented in this encounter Care Teams Spiral Winder Relationship Specialty Start Date End Date Unassigned, Pcp PCP - General Family Medicine 01/07/21 documented as of this encounter
--- OUTSIDE RECORDS SUMMARY | 2023-05-16 13:55 | XMS_ITS | Encounter Summary ---
Author Name Unknown Organization [facility] Address [address] [place] [address] Care Team Providers Care [employer] Name Role Phone Unassigned, Pcp Primary Care Provider Unavailabl e Encounter Details Date Type Department Care Team (Late st Contact Info) Description 08/31/2022 11:00 AM CDT Ancillary Procedure Department of Dermatology [...] week 06/09/2022 How often do you attend [facility] or rastafari services? More than 4 times per year 06/09/2022 Do you belong to any clubs o r organizations such as lutheran groups, unions, fraternal or athletic groups, or [...] and heating? Not hard at all 06/09/2022 [facility] of Occupat ional Health - Occupational Stress [...] place to sleep or slept in a residential (including now)? No 06/09/2022 Nutrition Answer Date [...] Sex Assigned at Female 05/20/2021 9:04 AM HOSE TURNER Gender Identity Female 05/20/2021 9:04 AM HOSE TURNER Sexual Orientation Straight 05/20/2021 9: 04 AM HOSE TURNER documented as of this encounter Plan of Treatment Upcoming Encounters Date Type Department Care Team (Late st Contact Info) Description 08/30/2023 4:00 PM CDT Office Visit Department of Dermatology in [address] [phone] Annabel Jarrell M.D. [address] [place] [phone] Discharge Disposition: Home or Self Care documented as of this encounter Procedures Procedure Name Priority Date/Time Associated Diagnosis Comments DERMATOLOGY IMAGE EXAM Routine 08/31/2022 10:51 AM CDT documented in this encounter Results * Forehead, left 7-Dermatology Image Exam (08/31/2022 10:51 AM CDT) 08/31/2022 10:4 8 AM CDT Narrative IIMS - 08/31/2022 10:51 AM CDT This order has been created and auto-finalized to support the import of images acquired without order. The clinical documentation to support these images can be found on the encounter that produced images. Provider Not In System IMG NON RAD IMAGI NG PROCEDURES IIMS NA documented in this encounter Visit Diagnoses Not on filedocumented in this encounter Care Teams [employer] Relationship Specialty Start Date End Date Unassigned, Pcp PCP - General Family Medicine 01/07/21 documented as of this encounter
--- OUTSIDE RECORDS SUMMARY | 2023-05-16 13:55 | XMS_ITS | Encounter Summary ---
Author Name Unknown Organization [facility] Address [address] [place] [address] Care Team Providers Care Instrument Designer Name Role Phone Unassigned, Pcp Primary Care Provider Unavailabl e Reason for Visit * Reason Comments Biopsy * Outpatient (Routine) - Closed Specialty Diagnoses / Procedures Referred By aCrroll t Referred To Contact Dermatology Diagnoses Tumor Skin Uncertain Behavior Procedures Dermatology misc minor procedure Annabel Jarrell M.D. 200 [place] [address] [facility] Referral ID Status Reason Start Date Expiration Date Visits Re quested Visits Authorized [id number] Closed 06/14/2022 06/14/2023 1 1 Encounter Details Date Type Department Care Team (Latest Contact Info) Description 08/31/2022 10:15 AM CDT Procedure visit Department of Dermatology in [address] [phone] Annabel Jarrell M.D. 200 [place] [phone] Keratosis Seborrheic (Primary Dx); Tumor Skin Uncertain Behavior Discharge Disposition: Home or Self Care Social History Tobacco Use Types Packs/Day Years Used Date Smoking Tobacco: Never Smokeless Tobacco: Never Tobacco Cessation:Counseling Given: Not Answered Alcohol Use Standard Drinks/Week Comments Yes 2 [...] week 06/09/2022 How often do you attend [facility] or hindu services? More than 4 times per year 06/09/2022 Do you belong to any clubs o r organizations such as mandaen groups, unions, fraternal or athletic groups, or [...] and heating? Not hard at all 06/09/2022 [facility] [place] of Occupat ional Health - Occupational Stress [...] place to sleep or slept in a long-term (including now)? No 06/09/2022 Nutrition Answer Date [...] Sex Assigned at Female 05/20/2021 9:04 AM ASSISTANT LIBRARIAN Gender Identity Female 05/20/2021 9:04 AM ASSISTANT LIBRARIAN Sexual Orientation Straight 05/20/2021 9: 04 AM ASSISTANT LIBRARIAN documented as of this encounter Progress Notes * Annabel Jarrell M.D., Ph.D. - 08/31/2022 10:15 AM CDT SUBJECTIVE CHIEF COMPLAINT / REASON FOR VISIT Biopsy x 1 HISTORY OF PRESENT ILLNESS Domonique Rosales is a pleasant 67 y.o. female who presents for a biopsy of a lesion x 1 of the right preauricular area (lower medial). The patient was last seen by me in Dermatology clinic on 05/27/22. 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 Pinzon at [facility]. She denies a personal or family history for melanoma. Her mother and father have had non-melanoma skin cancers. She uses sunscreen. Today thepatient states that the lesion involving the jawline has improved and she hardly notices it now. She would also like us to evaluate a lesion involving the forehead today. She states that the lesion involving the forehead has been present for approximately 8 months and looks similar to her previous basal cell carcinoma. MEDICAL HISTORY 1. Right upper forehead: History of nodular basal cell carcinoma, status post Mohs surgery on 09/21/[address] Pinzon at [facility] 2. Negative for melanoma 3. History of breast cancer, finished chemotherapy in January 2020 FAMILY HISTORY 1. Negative for melanoma 2. Non-melanoma skin cancers in mother and father OBJECTIVE PHYSICAL EXAMINATION General: Awake, alert, in no acute distress, and with appropriate affect. Skin: Limited skin exam done today. Examination of the right preauricular area (lower medial) reveals a 6 x 4 mm scar and some slight telangiectasia that looks less inflamed than previously and does not look infected, probable scar, rule out basal cell carcinoma. Examination of the upper nasal bridge reveals a 1.0 x 0.7 cm brown verrucous papule with slightly darker focal area at the 1-2 o'clock position, compatible with a pigmented seborrheic keratosis. Examination of the left upper forehead reveals a 5 x 5 mm uniformly colored light-brown verrucous papule compatible with a seborrheic keratosis. ASSESSMENT / PLAN #1 Right preauricular area (lower medial): Probable scar and telangiectasia, doubt basal cell carcinoma I discussed with the patient that I prefer to do a shave biopsy and submitted for pathology. She previously had lidocaine listed as an allergy and it has now been removed from her allergy list by heroncologist. She states that the lidocaine allergy was put into her chart 20-25 years ago after gynecological procedure, after which she felt dizzy. She does not recall any breathing issues or swelling of the face at that time. Since then, she has had lidocaine on numerous occasions including duringher Mohs surgery in 2017 as well a for a breast biopsy in 2019 without any issues. We recommend a shave biopsy of the right preauricular area (lower medial). Photograph taken today with patient's verbal consent. We will correspond as to the results and if any further treatment is needed. PROCEDURAL PAUSE: Procedural pause conducted to verify: correct patient identity, procedure to be performed, and as applicable, correct side and site, correct patient position, and availability of implants, special equipment or special requirements. PROCEDURE DETAILS: Shave biopsy. We explained the potential diagnosis and recommended that we obtain a biopsy. The risks and benefits of the procedure were discussed, and the patient consented to these procedures. The patient deniesany allergies to local anesthetics (as noted above). Using 1% lidocaine with epinephrine for local a nesthesia, a shave biopsy was obtained from the right preauricular cheek (lower medial). Biopsy submitted to Dermatopathology for H&E. Special stains will be performed as indicated. The bleeding was well controlled with application of aluminum chloride. Dressing was applied, and wound care instructions were explained. Biopsy results and any further recommendations will be communicated to the patient by letter. Patient given pamphlet [id number]. Discussed the risks, benefits, alternatives, and the necessity of other members of the healthcare team participating in the procedure. All questions answered and consent given. #2 Upper nasal bridge and left upper forehead: Seborrheic keratosis x 2 The benign nature of the skin lesion(s) was discussed with the patient. No treatment is required. Irecommend continued observation. Should this lesion change in size, color, texture, or shape or develop symptoms such as itching or bleeding, I recommend an immediate return visit for reassessment.Photographs taken today with patient consent. Follow up in 6 months for a recheck of the stated lesion(s). PATIENT EDUCATION: Ready to learn. No apparent learning barriers were identified. Learning preferences include listening. Explained diagnosis and treatment plan; patient/guardian of patient expressed understanding of the content. By signing my name below, I, Shannan Beckwith, attest that this documentation has been prepared underthe direction and in the presence of Annabel Jarrell M.D. Electronically Signed: percy Barrientos. 08/30/2022. 12:51 PM CDT. I, Annabel Jarrell M.D., personally performed the services described in this documentation. All medical record entries made by the scribe were at my direction and in my presence. I have reviewed the chart and discharge instructions (if applicable) and agree that the record reflects my personal performance and is accurate and complete. Annabel Jarrell M.D. Scribed for Annabel Jarrell M.D., Ph.D. by Shannan Beckwith, on 08/31/2022, 11:01 AM CDT. documented in this encounter Miscellaneous Notes * Result Encounter Note - Annabel Jarrell M.D., Ph.D. - 09/06/2022 3:24 PM CDT Right preauricular area: Benign lesion letter [facility] patient. Please send letter documented in this encounter Plan of Treatment Upcoming Encounters Date Type Department Care Team (Late st Contact Info) Description 08/30/2023 4:00 PM CDT Office Visit Department of Dermatology in [address] [phone] Annabel Jarrell M.D. [address] [place] [phone] Discharge Disposition: Home or Self Care documented as of this encounter Procedures Procedure Name Priority Date/Time Associated Diagnosis Comments DERMATOPATHOLOGY Routine 08/31/2022 10:3 4 AM CDT Tumor Skin Uncertain Behavior documented in this encounter Results * Dermatopathology (08/31/2022 10:34 AM CDT) 09/06/2022 1:15 PM CDT ECLR Report Electronically Signed By Tejinder Alvarado M.D. I verify that I have examined all relevant slides/material s for the specimen(s) and rendered or confirmed the diagnosis. 09/06/2022 1:15 PM CDT ECLR Gross Description Received labeled right preauricular area lower, medial is a 0.4 cm in diameter and less than 0.1 cm in thickness disc-shaped portion ofskin. There is a diffuse camarena-white fibrotic area identified on the skin surface. The specimen is submitted whole. All submitted in [id number]. ??[id number] 09/06/2022 1:15 PM CDT ECLR Specimen Source Right preauricular area lower medial shave biopsy 09/06/2022 1:15 PM CDT ECLR Clinical Information Scar, doubt BCC 09/06/2022 1:15 PM CDT ECLR Interpretation FINAL DIAGNOSIS Skin, right preauricular area, lower medial, shave biopsy: Dermal fibrosis consistent with scar. ??No malignancy is identified. Comment: ??Multiple levels are examined. Diagnosis was made via digital imaging. 09/06/2022 1:15 PM CDT ECLR Skin (Right Preauricular Area) 08/31/2022 10:34 AM CDT Annabel Jarrell M.D. LAB PATH DERM [facility] [address] [place] [id number], [facility] ECLR [address] [place] [phone] documented in this encounter Visit Diagnoses Diagnosis Keratosis Seborrheic- Primary Tumor Skin Uncertain Behavior documented in this encounter Care Teams Instrument Designer Relationship Specialty Start Date End Date Unassigned, Pcp PCP - General Family Medicine 01/07/21 documented as of this encounter
--- OUTSIDE RECORDS SUMMARY | 2023-05-16 13:55 | XMS_ITS | Encounter Summary ---
Author Name Unknown Organization [facility] Address [address] [place] [address] Care Team Providers Care Mid Level Clinician Name Role Phone Unassigned, Pcp Primary Care Provider Unavailabl e Reason for Visit * Reason Comments Skin Check * Appointment Request (Routine) - Closed Specialty Diagnoses / Procedures Referred By Carroll mendez Referred To Contact Dermatology Referral ID Status Reason Start Date Expiration Date Visits Re quested Visits Authorized [id number] Closed 08/31/2022 08/31/2023 1 1 Encounter Details Date Type Department Care Team (Late st Contact Info) Description 01/18/2023 2:00 PM CDT Office Visit Department of Dermatology in [address] [phone] Annabel Jarrell M.D. 200 [place] [phone] Keratosis Actinic (Primary Dx); Nevi Multiple; Keratosis Seborrheic; Cancer Skin Basal Cell Personal History Discharge Disposition: Home or Self Care Social [...] week 06/09/2022 How often do you attend [facility] or christian services? More than 4 times per year 06/09/2022 Do you belong to any clubs o r organizations such as jew groups, unions, fraternal or athletic groups, or [...] and heating? Not hard at all 06/09/2022 [facility] of Occupat ional Health - Occupational Stress [...] place to sleep or slept in a assisted (including now)? No 06/09/2022 Nutrition Answer Date [...] Sex Assigned at Female 05/20/2021 9:04 AM FRUIT TRIMMER Gender Identity Female 05/20/2021 9:04 AM FRUIT TRIMMER Sexual Orientation Straight 05/20/2021 9: 04 AM FRUIT TRIMMER documented as of this encounter Progress Notes * Annabel Jarrell M.D. - 01/18/2023 2:00 PM CDT SUBJECTIVE CHIEF COMPLAINT / REASON FOR VISIT Full skin cancer screening HISTORY OF PRESENT ILLNESS Domonique Rosales is a pleasant 67 y.o. female who presents for a full skin cancer screening. Thepatient was last seen by me in Dermatology clinic on 08/31/22. 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 Pinzon [facility]. She denies a personal or family history for melanoma. Her mother and father have had non-melanoma skin cancers. She uses sunscreen. She reports some dryness and scaling involving the scalp that she would like evaluated today. MEDICAL HISTORY 1. Right upper forehead: History of nodular basal cell carcinoma, status post Mohs surgery on 09/21/[address] Pinzon at [facility] 2. Negative for melanoma 3. History of breast cancer, finished chemotherapy in January 2020 FAMILY HISTORY 1. Negative for melanoma 2. Non-melanoma skin cancers in mother and father OBJECTIVE PHYSICAL EXAMINATION General: Awake, alert, in no acute distress, and with appropriate affect. Eyes: No scleral injection or icterus. No eyelid abnormalities. Lymph: No lower extremity edema. Skin: I have examined the scalp, face, neck, chest, abdomen, back, bilateral upper extremities, andbilateral lower extremities. My scribe (Shannan) served as a fermenting cellars receiver for the entirety of the exam. Examination of the right upper forehead reveals no evidence for recurrence of basal cell carcinoma x 1. Examination of the face, trunk and extremities reveals multiple benign-appearing nevi, lentigines and seborrheic keratoses. Examination of the vertex scalp reveals Examination of the left upper forehead reveals a seborrheic keratosis. Examination of the right upper nasal bridge reveals a 1.0 x 0.7 cm brown verrucous papule with slightly darker focal area at the 1-2 o'clock position, compatible with a seborrheic keratosis vs benignnevus, favor seborrheic keratosis. Examination of the left upper lateral nasal bridge reveals milia cyst. Examination today reveals no suspicious lesions for skin cancer. ASSESSMENT / PLAN #1 Vertex scalp: Actinic keratosis x 3 Given the precancerous nature of this lesion(s), treatment is medically indicated. After discussionof the risks, benefits and alternatives to treatment with cryotherapy, informed consent was obtained. We treated a total of three lesion(s) with two 10-second freeze-thaw cycles of liquid nitrogen cryotherapy. The patient tolerated the procedure well. Aftercare instructions were provided in writtenand verbal form to the patient. Should any of these lesions recur, the patient should return for biopsy or further evaluation. Follow up in 1-2 months for recheck if these areas do not complete resolve. #2 Left upper lateral nasal bridge: Milia cysts x 2 The benign nature of the skin lesion(s) was discussed with the patient. No treatment is required. Irecommend continued observation. Should this lesion change in size, color, texture, or shape or develop symptoms such as itching or bleeding, I recommend an immediate return visit for reassessment. #3 Face, trunk and extremities: Multiple nevi and lentigines The ABCDE criteria for melanoma was reviewed with the patient. None of the patient's nevi reach theclinical threshold for biopsy. I recommend continued sun protection, self-skin examinations, and observation. Should any of the patient's nevi change in size, color, texture, or shape or develop symptoms such as itching or bleeding, I recommend an immediate return visit for reassessment. #4 Face, trunk and extremities: Seborrheic keratosis The benign nature of the skin lesion(s) was discussed with the patient. No treatment is required. Irecommend continued observation. Should this lesion change in size, color, texture, or shape or develop symptoms such as itching or bleeding, I recommend an immediate return visit for reassessment. Particularly, we will continue to clinically monitor the lesion(s) involving the right upper nasal bridge. Photographs taken today. Follow up in 6 months for a recheck of the stated lesion(s). #5 Right upper forehead: History of nodular basal cell carcinoma, status post Mohs surgery on 09/21/[address] Pinzon at [facility], no recurrence No clinical evidence of local recurrence today. Recommended monthly self-skin examinations to evaluate for new, changing, symptomatic, or otherwise worrisome lesions. Signs and symptoms of skin cancer discussed. Photoprotection was recommended. Return to Dermatology in 6 months for a full skin examor immediately if any new or changing lesions are noted. PATIENT EDUCATION: Ready to learn. No apparent learning barriers were identified. Learning preferences include listening. Explained diagnosis and treatment plan; patient/guardian of patient expressed understanding of the content. By signing my name below, I, Shannan Beckwith, attest that this documentation has been prepared underthe direction and in the presence of Annabel Jarrell M.D. Electronically Signed: percy Barrientos. 01/18/2023. 12:39 PM CDT. I, Annabel Jarrell M.D., personally performed the services described in this documentation. All medical record entries made by the scribe were at my direction and in my presence. I have reviewed the chart and discharge instructions (if applicable) and agree that the record reflects my personal performance and is accurate and complete. Annabel Jarrell M.D. Scribed for Annabel Jarrell M.D. by Shannan Beckwith, on 01/18/2023, 1:12 PM CDT. documented in this encounter Plan of Treatment Upcoming Encounters Date Type Department Care Team (Late st Contact Info) Description 08/30/2023 4:00 PM CDT Office Visit Department of Dermatology in [address] [phone] Annabel Jarrell M.D. [address] [place] [address] Discharge Disposition: Home or Self Care documented as of this encounter Visit Diagnoses Diagnosis Keratosis Actinic- Primary Nevi Multiple Keratosis Seborrheic Cancer Skin Basal Cell Personal History documented in this encounter Care Teams Mid Level Clinician Relationship Specialty Start Date End Date Unassigned, Pcp PCP - General Family Medicine 01/07/21 documented as of this encounter
--- OUTSIDE RECORDS SUMMARY | 2023-05-16 13:55 | XMS_ITS | Encounter Summary ---
Author Name Unknown Organization [facility] Address [address] [place] [address] Care Team Providers Care Radiology Therapist Name Role Phone Unassigned, Pcp Primary Care Provider Unavailabl e Encounter Details Date Type Department Care Team (Late st Contact Info) Description 08/31/2022 10:50 AM CDT Ancillary Procedure Department of Dermatology [...] week 06/09/2022 How often do you attend [facility] or yazidi services? More than 4 times per year 06/09/2022 Do you belong to any clubs o r organizations such as jehovah's witness groups, unions, fraternal or athletic groups, or [...] and heating? Not hard at all 06/09/2022 [facility] of Occupat ional Health - Occupational [...] Sex Assigned at Female 05/20/2021 9:04 AM SHIP WASHER Gender Identity Female 05/20/2021 9:04 AM SHIP WASHER Sexual Orientation Straight 05/20/2021 9: 04 AM SHIP WASHER documented as of this encounter Plan of Treatment Upcoming Encounters Date Type Department Care Team (Late st Contact Info) Description 08/30/2023 4:00 PM CDT Office Visit Department of Dermatology in [address] [phone] Annabel Jarrell M.D. [address] [place] [phone] Discharge Disposition: Home or Self Care documented as of this encounter Procedures Procedure Name Priority Date/Time Associated Diagnosis Comments DERMATOLOGY IMAGE EXAM Routine 08/31/2022 10:50 AM CDT documented in this encounter Results * Cheek, right 12 14 26 28 38-Dermatology Image Exam (08/31/2022 10:50 AM CDT) 08/31/2022 [...] on filedocumented in this encounter Care Teams Radiology Therapist Relationship Specialty Start Date End Date Unassigned, Pcp PCP - General Family Medicine 01/07/21 documented as of this encounter
--- OUTSIDE RECORDS SUMMARY | 2023-05-16 13:55 | XMS_ITS | Referral Summary ---
Author Name Unknown Organization [facility] Address [address] [place] [address] Care Team Providers Care Performing Artist Name Role Phone Unassigned, Pcp Primary Care Provider Unavailabl e Source Comments Patient records contain information from all sites at [facility]. For routine questions regarding patient records, call [phone] during business hours, M-F 8:00 AM - 5:00 PM Central Time. Record requests for emergency care only can be directed to [phone] at any time.[facility] Allergies Active Allergy Reactions Criticality Noted Date Comments Dexamethasone (Pf) Palpitations,Other (see comments) 05/27/2020 Dizziness (oral dosage only) Midazolam Other (see comments) 09/21/2016 does not work well. wears off quickly Naproxen Other (see comments) 09/21/2016 Medications Medication Sig Dispensed Refills Start Date End Date Status cloNIDine (CATAPRES) 0.1 mg tablet Take 0.2 mg by mouth 2 (two) times a day. 0 03/10/2018 Active cholecalciferol (VITAMIN D3) 1,000 Unit capsule Take by mouth. 0 09/21/2016 Active multivitamin tablet Take 1 tablet by mouth daily. 0 Active calcium carbonate-vitamin D2 (OSCAL) 250 (625)-125 mg-unit per tablet Take 1 tablet by mouth daily. 0 Active nystatin (MYCOSTATIN) 100,000 unit/gram cream Apply sparingly to involved area twice daily for approximately 3-4 weeks then stop. 30 g 0 01/15/2019 Active Additional Information Patient taking differently: As needed, Apply sparingly to involved area twice daily for approximately 3-4 weeks then stop., Reported on 05/22/2021 anastrozole (ARIMIDEX) 1 mg tablet 0 02/21/2020 Active chlorhexidine (PERIDEX) 0.12 % mouthwash 0 05/18/2021 Active chlorthalidone (HYGROTON) 25 mg tablet Take 1 tablet (25 mg total) by mouth daily. 90 tablet 3 08/03/2021 Active alendronate (FOSAMAX) 70 mg tablet TAKE 1 TABLET EVERY 7 DAYS WEEKLY ON AN EMPTY STOMACH, REMAIN UPRIGHT FOR AT LEAST 30 MINUTES 12 tablet 3 06/04/2022 Active magnesium 200 mg tablet Take 400 mg by mouth every morning before breakfast. 0 Active letrozole (FEMARA) 2.5 mg tablet Take 2.5 mg by mouth daily. 0 10/28/2022 Active albuterol 90 mcg/actuation inhaler Inhale 2 puffs every 6 (six) hours as needed for shortness of breath. 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 Prophylactic Use Aromatase Inhibitor 08/03/2021 Osteoporosis 05/22/2021 Immunizations Name Administration Dates Next Due HZV (ZOSTAVAX) 03/18/2017 Influenza (IM) Preservative Free 015,01/15/2013,02/01/2012,2010 Influenza high dose QV(65 ye ars or older) (PF) 01/22/2021 Influenza, Seasonal, Injectable 02/19/2008 Influenza, Unspecified 02/19/2008 PCV13 06/24/2016 PPSV23 03/02/2021 RZV (SHINGRIX) 06/22/2019,03/14/2019 Rabies, intramuscular, historical 2012,01/01/2013,12/26/2012,2012,12/18/2012 SARS-COV-2 (COVID-19) - PFIZ ER (12 years or older) 01/07/2021,06/06/2020,05/16/2020 Td (Adult), adsorbed 06/26/2021,02/11/2006 Tdap 02/01/2012 influenza high dose (65 year s or older) (PF) 03/14/2019 influenza vaccine quad (FLUZONE/FLUARIX) (6 months and older)(PF) 02/25/2020,05/12/2015 Social History Tobacco Use Types Packs/Day Years [...] How often do you attend chur or mu-ism services? More than 4 times per year 06/09/2022 Do you belong to any clubs o r organizations such as zoroastrianism groups, unions, fraternal or athletic groups, or [...] and heating? Not hard at all 06/09/2022 [facility] [place] of Occupat ional Health - Occupational Stress [...] place to sleep or slept in a [place] facility (including now)? No 06/09/2022 Nutrition Answer Date [...] Sex Assigned at Female 05/20/2021 9:04 AM FABRICATION ENGINEER Gender Identity Female 05/20/2021 9:04 AM FABRICATION ENGINEER Sexual Orientation Straight 05/20/2021 9: 04 AM FABRICATION ENGINEER Last Filed Vital Signs Vital Sign Reading Time Taken Comments Blood Pressure 158/93 08/03/2021 10:58 AM CDT Pulse 60 08/03/2021 10:58 AM CDT Temperature - - Respiratory Rate - - Oxygen Saturation - - Inhaled Oxygen Concentration - - Weight 76.8 kg (169 lb 5 oz) 08/03/2021 10:58 AM CDT w/shoes Height 166.5 cm (5' 5.55) 08/03/2021 10:58 AM C DT w/shoes Body Mass Index 27.7 08/03/2021 10:58 AM CDT Plan of Treatment Upcoming Encounters Date Type Department Care Team (Late st Contact Info) Description 08/30/2023 4:00 PM CDT Office Visit Department of Dermatology in [address] [phone] Annabel Jarrell M.D. [address] [place] [phone] Discharge Disposition: Home or Self Care Care Teams Performing Artist Relationship Specialty Start Date End Date Unassigned, Pcp PCP - General Family Medicine 01/07/21
--- OUTSIDE RECORDS SUMMARY | 2023-05-16 13:55 | XMS_ITS | Clinical Summary ---
Author Name Unknown Organization [facility] Address [place], [place] [address] Care Team Providers Care Medical Laboratory Technologist Name Role Phone Allen Johnson MD Primary Care Provider Social History Tobacco Use Types Packs/Day Years Used Date Smoking Tobacco: Never Assessed Sex and Gender Information Value Date Recorded Sex Assigned at Not on file Gender Identity Not on file Sexual Orientation Not on file Last Filed Vital Signs Vital Sign Reading Time Taken Comments Blood Pressure 135/85 03/07/2007 2:27 PM APPEALS REPRESENTATIVE Pulse 66 03/07/2007 2:27 PM APPEALS REPRESENTATIVE Temperature - - Respiratory Rate - - Oxygen Saturation 100% 03/07/2007 2:27 PM APPEALS REPRESENTATIVE Inhaled Oxygen Concentration - - Weight 69.5 kg (153 lb 3.2 oz) 03/07/2007 2:27 P M APPEALS REPRESENTATIVE Height - - Body Mass Index - - Plan of Treatment Health Maintenance Due Date Last Done Comments Tdap 1964 Depression screening for age 12+ 1965 BMI (ht and wt on same day) for age 18+ 1971 Hepatitis C screening for ag e 18-79 1971 Tetanus booster 1973 Colonoscopy through age 75 1998 Lipids for age 45-75 1998 Mammogram for age 45-75 1998 Zoster (shingles) series for age 50+ (1 of 2) 2003 DEXA/DXA scan for age 65+ 2018 Medicare Wellness for age 65+ 2018 Pneumococcal series for age 65+ (1 of 1 - PCV) 2018 COVID-19 vaccine series (2022- season) 2022 02/15/2022, 08/04/2021, 01/07/2021, Additional history exists Influenza for age 65+ 12/24/2022 Care Teams Medical Laboratory Technologist Relationship Specialty Start Date End Date Allen Johnson MD [address] [place] [id number] PCP - General 03/07/07
--- OUTSIDE RECORDS SUMMARY | 2023-05-16 13:55 | XMS_ITS | Clinical Summary ---
Author Name Unknown Organization [facility] Address [address] [place] [address] Care Team Providers Care Assistant Health Educator Name Role Phone Unassigned, Pcp Primary Care Provider Unavailabl e Source Comments Patient records contain information from all sites at [facility]. For routine questions regarding patient records, call [phone] during business hours, M-F 8:00 AM - 5:00 PM Central Time. Record requests for emergency care only can be directed to [phone] at any time.[facility] Allergies Active Allergy Reactions Criticality Noted Date [...] quad (FLUZONE/FLUARIX) (6 months and older)(PF) 02/25/2020,05/12/2015 Family History Medical History Relation Name Comments Basal cell carcinoma Brother 1 Hector Red Skin cancer Brother 1 Hector Red Ulcerative colitis Brother 1 Hector Red Basal cell carcinoma Brother 2 Squamous cell carcinoma Brother 2 Ulcerative colitis Daughter Ludivina Samuel Basal cell carcinoma Father Neto Red Coronary artery disease Father Neto Red Diabetes Father Neto Red Hypertension Father Neto Red Skin cancer Father Neto Red Breast cancer Maternal Grandmother Damien Phoenix Hypertension Mother Amada Red Relation Name Status Comments Brother 1 Hector Red Brother 2 Daughter Ludivina Samuel Father Neto Red Maternal Grandmother Damien Phoenix Mother Amada Red Social History Tobacco Use Types Packs/Day Years [...] How often do you attend chur or worship services? More than 4 times per year 06/09/2022 Do you belong to any clubs o r organizations such as amish groups, unions, fraternal or athletic groups, or [...] and heating? Not hard at all 06/09/2022 [facility] [place] of Occupat ional Health - Occupational Stress [...] place to sleep or slept in a [facility] (including now)? No 06/09/2022 Nutrition Answer Date [...] Sex Assigned at Female 05/20/2021 9:04 AM GENERAL CLAIMS AGENT Gender Identity Female 05/20/2021 9:04 AM GENERAL CLAIMS AGENT Sexual Orientation Straight 05/20/2021 9: 04 AM GENERAL CLAIMS AGENT Last Filed Vital Signs Vital Sign Reading [...] CDT Office Visit Department of Dermatology in [address] [phone] Annabel Jarrell M.D. [address] [place] [phone] Discharge Disposition: Home or Self Care Health Maintenance Due Date Last Done Comments CT Colonography 1953 Cologuard 1955 Colonoscopy 1953 Colorectal Cancer Surveillance 1955 Fasting Glucose for Diabetes Screening 1953 Hepatitis C Screening 1955 Mammogram 1955 Office Visit for Blood Press ure Check / Re-check 11/02/2021 08/03/2021 Depression Screening (Annual PHQ-2) 04/25/2023 Fall Risk Screen (Annual) 04/25/2023 DTaP,Tdap,and Td Vaccines (4 - Td or Tdap) 03/17/2032 03/17/2022, 06/26/2021, 02/01/2012, Additional history exists Zoster Vaccines Completed 06/22/2019, 02/24, 03/18/2017 Pneumococcal vaccine (65+ years) Completed 03/02/20, 06/24/2016 COVID-19 Vaccine Completed 01/27/2023, , 08/04/2021, Additional history exists Influenza Vaccine Completed 01/27/2023, , 01/22/2021, Additional history exists Care Teams Assistant Health Educator Relationship Specialty Start Date End Date Unassigned, Pcp PCP - General Family Medicine 01/07/21
--- OUTSIDE RECORDS SUMMARY | 2023-05-16 13:55 | XMS_ITS ---
Author Name Unknown Organization [facility] Address [address] [place] [address] Care Team Providers Care Fusion Analyst Name Role Phone Unavailable Unavailable Unavailable Surgery Details Not on file Complications Check Surgery Details section. Procedure Estimated Blood Loss Check Surgery Details section. Procedure Findings Check Surgery Details section. Procedure Specimens Taken Check Surgery Details section.
--- OUTSIDE RECORDS SUMMARY | 2023-05-16 13:55 | XMS_ITS | Encounter Summary ---
Author Name Unknown Organization [facility] Address [address] [place] [address] Care Team Providers Care Song Lyricist Name Role Phone Unassigned, Pcp Primary Care Provider Unavailabl e Encounter Details Date Type Department Care Team (Late st Contact Info) Description 01/18/2023 1:20 PM CDT Ancillary Procedure Department of Dermatology Social [...] week 06/09/2022 How often do you attend [facility] or yazdanism services? More than 4 times per year 06/09/2022 Do you belong to any clubs o r organizations such as advent groups, unions, fraternal or athletic groups, or [...] and heating? Not hard at all 06/09/2022 [facility] of Occupat ional Health - [...] place to sleep or slept in a senior living (including now)? No 06/09/2022 Nutrition Answer Date [...] Sex Assigned at Female 05/20/2021 9:04 AM GEOCHEMICAL MANAGER Gender Identity Female 05/20/2021 9:04 AM GEOCHEMICAL MANAGER Sexual Orientation Straight 05/20/2021 9: 04 AM GEOCHEMICAL MANAGER documented as of this encounter Plan of Treatment Upcoming Encounters Date Type Department Care Team (Late st Contact Info) Description 08/30/2023 4:00 PM CDT Office Visit Department of Dermatology in [address] [phone] Annabel Jarrell M.D. [address] [place] [phone] Discharge Disposition: Home or Self Care documented as of this encounter Procedures Procedure Name Priority Date/Time Associated Diagnosis Comments DERMATOLOGY IMAGE EXAM Routine 01/18/2023 1:20 PM CDT documented in this encounter Results * Nose 510-Dermatology Image Exam (01/18/2023 1:20 PM CDT) 01/18/2023 1:18 PM CDT Narrative IIMS - 01/18/2023 1:21 PM CDT This order has been created and auto-finalized to support the import of images acquired without order. The clinical documentation to support these images can be found on the encounter that produced images. Provider Not In System IMG NON RAD IMAGI NG PROCEDURES IIMS NA documented in this encounter Visit Diagnoses Not on filedocumented in this encounter Care Teams Song Lyricist Relationship Specialty Start Date End Date Unassigned, Pcp PCP - General Family Medicine 01/07/21 documented as of this encounter
--- OUTSIDE RECORDS SUMMARY | 2023-05-16 13:56 | XMS_ITS | Encounter Summary ---
Author Name Unknown Organization [facility] Address [address] [place] [address] Care Team Providers Care [employer] Founder Name Role Phone Unassigned, Pcp Primary Care Provider Unavailabl e Encounter Details Date Type Department Care Team ([facility] st Contact Info) Description 06/21/2022 Clinical Communication Department of Dermatology in [place], [place] [address] [place] [address] Annabel Jarrell M.D. [address] [place] [address] Social History Tobacco Use Types Packs/Day Years [...] 06/09/2022 How often do you attend chur ch or rastafari services? More than 4 times per year 06/09/2022 Do you belong to any clubs o r organizations such as congregational groups, unions, fraternal or athletic groups, or [...] and heating? Not hard at all 06/09/2022 [facility] of Occupat ional Health - Occupational [...] Sex Assigned at Female 05/20/2021 9:04 AM SUBSTATION ELECTRICIAN SUPERVISOR Gender Identity Female 05/20/2021 9:04 AM SUBSTATION ELECTRICIAN SUPERVISOR Sexual Orientation Straight 05/20/2021 9: 04 AM SUBSTATION ELECTRICIAN SUPERVISOR documented as of this encounter Miscellaneous Notes * Telephone Encounter - Glory Murray R.N. - 06/21/2022 9:15 AM SUBSTATION ELECTRICIAN SUPERVISOR Allergy has been removed from her chart. TATION ELECTRICIAN SUPERVISOR documented in this encounter Plan of Treatment Upcoming Encounters Date Type Department Care Team (Late st Contact Info) Description 08/30/2023 4:00 PM CDT Office Visit Department of Dermatology in [address] [place] [phone] Annabel Jarrell M.D. [address] [place] [address] Discharge Disposition: Home or Self Care documented as of this encounter Visit Diagnoses Not on filedocumented in this encounter Care Teams [employer] Founder Relationship Specialty Start Date End Date Unassigned, Pcp PCP - General Family Medicine 01/07/21 documented as of this encounter
--- OUTSIDE RECORDS SUMMARY | 2023-05-16 13:56 | XMS_ITS | Encounter Summary ---
Author Name Unknown Organization [facility] Address [address] [place] [address] Care Team Providers Care De Icer Element Winder Name Role Phone Unassigned, Pcp Primary Care Provider Unavailabl e Reason for Visit * Reason Comments Med Refill Encounter Details Date Type Department Care Team (Late st Contact Info) Description 06/02/2022 Refill Division of Endocrinology in [place], [place] [address] [place] [phone] Brian Spear M.D., Ph.D. [address] [place] [phone] Med Refill Social History Tobacco Use Types Packs/Day Years Used Date Smoking Tobacco: Never Smokeless Tobacco: Never Alcohol Use Standard Drinks/Week Comments Yes 2 (1 standard drink = 0.6 oz pur e alcohol) Humiliation, Afraid, Rape, and Kick questionnair e Answer Date Recorded Within the last year, have y ou been afraid of your partner or ex-partner? No 11/16/2021 Within the last year, have y ou been humiliated or emotionally abused in other ways by your partner or ex-partner? No Within the last year, have y ou been kicked, hit, slapped, or otherwise physically hurt by your partner or ex-partner? No 11/16/2021 Within the last year, have y ou been raped or forced to have any kind of sexual activity by your partner or ex-partner? No 11/16/2021 Social Connection and Isolat ion Panel [NHANES] Answer Date Recorded In a typical week, how many times do you talk on the phone with family, friends, or neighbors? Twice a week 11/16/2021 How often do you get togethe r with friends or relatives? Twice a week 11/16/2021 How often do you attend chur ch or mosque services? More than 4 times per year 11/16/2021 Do you belong to any clubs o r organizations such as episcopal groups, unions, fraternal or athletic groups, or school groups? Yes 11/16/2021 How often do you attend meet ings of the clubs or organizations you belong to? More than 4 times per year 11/16/2021 Are you , , di vorced, , never , or living with a partner? 11/16/2021 AUDIT-C Answer Date Recorded Q1: How often do you have a drink containing alc ohol? 2-4 times a month 11/16/2021 Q2: How many drinks containi ng alcohol do you have on a typical day when you are drinking? 1 or 2 11/16/2021 Q3: How often do you have si x or more drinks on one occasion? Never 11/16/2021 Overall Financial Resource Strain (CARDIA) Answe r Date Recorded How hard is it for you to pa y for the very basics like food, housing, medical care, and heating? Not hard at all 11/16/2021 [facility] of Occupat ional Health - Occupational Stress Questionnaire Answer Date Recorded Do you feel stress - tense, restless, nervous, or anxious, or unable to sleep at night because your mind is troubled all the time - these days? To some extent 11/16/2021 Exercise Vital Sign Answer Date Recorde d On average, how many days pe r week do you engage in moderate to strenuous exercise (like a brisk walk)? 3 days 11/16/2021 On average, how many minutes do you engage in exercise at this level? 40 min 11/16/2021 Hunger Vital Sign Answer Date Recorded Within the past 12 months, y ou worried that your food would run out before you got the money to buy more. Never true 11/17/19 22 Within the past 12 months, t he food you bought just didn't last and you didn't have money to get more. Never true 11/16/2021 PRAPARE - Transportation Answer Date Re corded In the past 12 months, has l ack of transportation kept you from medical appointments or from getting medications? No 10/24 In the past 12 months, has l ack of transportation kept you from meetings, work, or from getting things needed for daily living? No 11/16/2021 Housing Stability Vital Sign Answer Philip e Recorded In the last 12 months, was t here a time when you were not able to pay the mortgage or rent on time? No 11/16/2021 In the last 12 months, how many places have you lived? 1 11/16/2021 In the last 12 months, was t here a time when you did not have a steady place to sleep or slept in a senior care (including now)? No 11/16/2021 Nutrition Answer Date Recorded Nutrition: EVOO Fat Source No 11/16 On average, how many serving s of fruits and vegetables do you eat per day (serving size is equal to 1 cup or approximately the size of a tennis ball)? 4-5 11/16/2021 Dental Answer Date Recorded Dental: Regular Dentist Yes 08/29/19 Employment Answer Date Recorded Employment status Retired 11/16/2021 Education Answer Date Recorded What is the highest level of school you have completed or the highest degree you have received? Some college, no degree 08/28/2020 Sex and Gender Information Value Date Recorded Sex Assigned at Female 05/20/2021 9:04 AM MAINFRAME SOFTWARE DEVELOPER Gender Identity Female 05/20/2021 9:04 AM MAINFRAME SOFTWARE DEVELOPER Sexual Orientation Straight 05/20/2021 9: 04 AM MAINFRAME SOFTWARE DEVELOPER documented as of this encounter Plan of Treatment Upcoming Encounters Date Type Department Care Team (Late st Contact Info) Description 08/30/2023 4:00 PM CDT Office Visit Department of Dermatology in [address] [phone] Annabel Jarrell M.D. [address] [place] [address] Discharge Disposition: Home or Self Care documented as of this encounter Visit Diagnoses Not on filedocumented in this encounter Care Teams De Icer Element Winder Relationship Specialty Start Date End Date Unassigned, Pcp PCP - General Family Medicine 01/07/21 documented as of this encounter
--- OUTSIDE RECORDS SUMMARY | 2023-05-16 13:56 | XMS_ITS | Encounter Summary ---
Author Name Unknown Organization [facility] Address [address] [place] [address] Care Team Providers Care Ware Finisher Name Role Phone Unassigned, Pcp Primary Care Provider Unavailabl e Encounter Details Date Type Department Care Team (Late st Contact Info) Description 06/14/2022 2:15 PM FAMILY LAW ATTORNEY Ancillary Procedure Department of Dermatology Social History [...] week 06/09/2022 How often do you attend [facility] or muslim services? More than 4 times per year 06/09/2022 Do you belong to any clubs o r organizations such as moravian groups, unions, fraternal or athletic groups, or [...] and heating? Not hard at all 06/09/2022 [facility] of Occupat ional Health - Occupational [...] place to sleep or slept in a retirement (including now)? No 06/09/2022 Nutrition Answer Date [...] Sex Assigned at Female 05/20/2021 9:04 AM FAMILY LAW ATTORNEY Gender Identity Female 05/20/2021 9:04 AM FAMILY LAW ATTORNEY Sexual Orientation Straight 05/20/2021 9: 04 AM FAMILY LAW ATTORNEY documented as of this encounter Plan of Treatment Upcoming Encounters Date Type Department Care Team (Late st Contact Info) Description 08/30/2023 4:00 PM CDT Office Visit Department of Dermatology in [address] [phone] Annabel Jarrell M.D. [address] [place] [phone] Discharge Disposition: Home or Self Care documented as of this encounter Procedures Procedure Name Priority Date/Time Associated Diagnosis Comments DERMATOLOGY IMAGE EXAM Routine 06/14/2022 2:09 PM FAMILY LAW ATTORNEY documented in this encounter Results * Nose 510-Dermatology Image Exam (06/14/2022 2:09 PM FAMILY LAW ATTORNEY) 06/14/2022 2:06 PM FAMILY LAW ATTORNEY Narrative IIMS - 06/14/2022 2:09 PM FAMILY LAW ATTORNEY This order has been created and auto-finalized to support the import of images acquired without order. The clinical documentation to support these images can be found on the encounter that produced images. Provider Not In System IMG NON RAD IMAGI NG PROCEDURES IIMS NA documented in this encounter Visit Diagnoses Not on filedocumented in this encounter Care Teams Ware Finisher Relationship Specialty Start Date End Date Unassigned, Pcp PCP - General Family Medicine 01/07/21 documented as of this encounter
--- OUTSIDE RECORDS SUMMARY | 2023-05-16 13:56 | XMS_ITS | Encounter Summary ---
Author Name Unknown Organization [facility] Address [address] [place] [address] Care Team Providers Care Litigation Legal Secretary Name Role Phone Unassigned, Pcp Primary Care Provider Unavailabl e Encounter Details Date Type Department Care Team (Late st Contact Info) Description 06/14/2022 2:10 PM RESOLUTION EXPERT Ancillary Procedure Department of Dermatology Social History [...] How often do you attend [facility] or taoism services? More than 4 times per year 06/09/2022 Do you belong to any clubs o r organizations such as rastafari groups, unions, fraternal or athletic groups, or [...] Sex Assigned at Female 05/20/2021 9:04 AM RESOLUTION EXPERT Gender Identity Female 05/20/2021 9:04 AM RESOLUTION EXPERT Sexual Orientation Straight 05/20/2021 9: 04 AM RESOLUTION EXPERT documented as of this encounter Plan of Treatment Upcoming Encounters Date Type Department Care Team (Late st Contact Info) Description 08/30/2023 4:00 PM CDT Office Visit Department of Dermatology in [address] [phone] Annabel Jarrell M.D. [address] [place] [phone] Discharge Disposition: Home or Self Care documented as of this encounter Procedures Procedure Name Priority Date/Time Associated Diagnosis Comments DERMATOLOGY IMAGE EXAM Routine 06/14/2022 2:09 PM RESOLUTION EXPERT documented in this encounter Results * cheek, right jawline 38-Dermatology Image Exam (06/14/2022 2:09 PM RESOLUTION EXPERT) 06/14/2022 2:06 PM RESOLUTION EXPERT Narrative IIMS - 06/14/2022 2:09 PM RESOLUTION EXPERT This order has been created and auto-finalized to support the import of images acquired without order. The clinical documentation to support these images can be found on the encounter that produced images. Provider Not In System IMG NON RAD IMAGI NG PROCEDURES IIMS NA documented in this encounter Visit Diagnoses Not on filedocumented in this encounter Care Teams Litigation Legal Secretary Relationship Specialty Start Date End Date Unassigned, Pcp PCP - General Family Medicine 01/07/21 documented as of this encounter
--- OUTSIDE RECORDS SUMMARY | 2023-05-16 13:56 | XMS_ITS | Encounter Summary ---
Author Name Unknown Organization [facility] Address [address] [place] [address] Care Team Providers Care Philatelic Consultant Name Role Phone Unassigned, Pcp Primary Care Provider Unavailabl e Reason for Visit * Reason Onset Date Comments appt questions 06/21/2022 Encounter Details Date Type Department Care Team (Latest Contact Info) Description 06/21/2022 Clinical Communication Department of Dermatology in [address] [phone] Unassigned, Pcp appt questions Social History Tobacco Use Types Packs/Day Years [...] often do you attend chur ch or rastafarian services? More than 4 times per year 06/09/2022 Do you belong to any clubs o r organizations such as christian groups, unions, fraternal or athletic groups, or [...] and heating? Not hard at all 06/09/2022 [facility] [place] of Occupat ional Health - Occupational Stress [...] in a senior care (including now)? No 06/09/2022 Nutrition Answer Date [...] Sex Assigned at Female 05/20/2021 9:04 AM FOREIGN DIPLOMAT Gender Identity Female 05/20/2021 9:04 AM FOREIGN DIPLOMAT Sexual Orientation Straight 05/20/2021 9: 04 AM FOREIGN DIPLOMAT documented as of this encounter Plan of Treatment Upcoming Encounters Date Type Department Care Team (Late st Contact Info) Description 08/30/2023 4:00 PM CDT Office Visit Department of Dermatology in [address] [phone] Annabel Jarrell M.D. [address] [place] [phone] Discharge Disposition: Home or Self Care documented as of this encounter Visit Diagnoses Not on filedocumented in this encounter Care Teams Philatelic Consultant Relationship Specialty Start Date End Date Unassigned, Pcp PCP - General Family Medicine 01/07/21 documented as of this encounter
--- OUTSIDE RECORDS SUMMARY | 2023-05-16 13:56 | XMS_ITS | Encounter Summary ---
Author Name Unknown Organization [facility] Address [address] [place] [address] Care Team Providers Care Lipcoat Sprayer Name Role Phone Unassigned, Pcp Primary Care Provider Unavailabl e Reason for Visit * Reason Comments Skin Check * Appointment Request (Routine) - Closed Specialty Diagnoses / Procedures Referred By Carroll mendez Referred To Contact Dermatology Referral ID Status Reason Start Date Expiration Date Visits Re quested Visits Authorized [id number] Closed 03/15/2022 03/15/2023 1 1 Encounter Details Date Type Department Care Team (Late st Contact Info) Description 06/14/2022 1:30 PM ACUTE CARE SURGEON Office Visit Department of Dermatology in [address] [phone] Annabel Jarrell M.D. [address] [place] [phone] Keratosis Actinic (Primary Dx); Nevi Multiple; Keratosis Seborrheic Discharge Disposition: Home or Self Care Social [...] How often do you attend chur or gnosticism services? More than 4 times per year 06/09/2022 Do you belong to any clubs o r organizations such as caodaism groups, unions, fraternal or athletic groups, or [...] and heating? Not hard at all 06/09/2022 [facility] of Occupat ional Health - Occupational Stress [...] place to sleep or slept in a snf (including now)? No 06/09/2022 Nutrition Answer Date [...] Sex Assigned at Female 05/20/2021 9:04 AM ACUTE CARE SURGEON Gender Identity Female 05/20/2021 9:04 AM ACUTE CARE SURGEON Sexual Orientation Straight 05/20/2021 9: 04 AM ACUTE CARE SURGEON documented as of this encounter Progress Notes * Annabel Jarrell M.D. - 06/14/2022 1:30 PM CST SUBJECTIVE CHIEF COMPLAINT / REASON FOR VISIT Full skin cancer screening HISTORY OF PRESENT ILLNESS Domonique Rosales is a pleasant 66 y.o. female who presents for a full skin cancer screening. Thepatient was last seen by me in Dermatology clinic on 11/17/21. 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 Pinzon at [facility]. She denies a personal or family history for melanoma. Her mother and father have had non-melanoma skin cancers. She uses sunscreen. She denies any new or changing lesions today. MEDICAL HISTORY 1. Right upper forehead: History of nodular basal cell carcinoma, status post Mohs surgery on 09/21/[address] Pinzon at [facility] 2. Negative for melanoma 3. History [...] extremities. My scribe (Shannan) served as a director call center sales for the entirety of the exam. Examination of the face, trunk and extremities reveals multiple benign-appearing nevi, lentigines and seborrheic keratoses. Examination of the anterior vertex scalp reveals an actinic keratosis x 1. Examination of the upper nasal bridge reveals a 1.2 x 0.6 cm light-brown verrucous plaque with slightly focal darker area at the 3 o'clock position, compatible with a seborrheic keratosis. Examination of the just above right posterior jawline reveals a 3 x 5 mm pink- white scarlike maculethat is slightly firm, probable scar vs dermatofibroma, rule out basal cell carcinoma. ASSESSMENT / PLAN #1 Anterior vertex scalp: Actinic keratosis x 1 Given the precancerous nature of this lesion(s), treatment is medically indicated. After discussionof the risks, benefits and alternatives to treatment with cryotherapy, informed consent was obtained. We treated a total of one lesion(s) with two 10-second freeze-thaw cycles of liquid nitrogen cryotherapy. The patient tolerated the procedure well. Aftercare instructions were provided in written and verbal form to the patient. Should any of these lesions recur, the patient should return for biopsy or further evaluation. Follow up in 1-2 months for recheck if these areas do not complete resolve. #2 Just above right posterior jawline: Probable scar vs dermatofibroma, doubt basal cell carcinoma On exam today, above right posterior jawline reveals a scar vs dermatofibroma, rule out basal cell carcinoma. I discussed with the patient that we could potentially do a shave biopsy today. I did note that patients list of allergies states lidocaine and reports sees stars as a side effect. I discussed this with the patient today ands she does not recall seeing stars after lidocaine. She states that Versed does not work well for her as it does not cause sedation, which was in her chart. I willdefer the biopsy for now, as the patient is going on a trip to [place] in the near future and I wouldlike to clarify her lidocaine allergy. I will discuss the listed lidocaine allergy with my Derm surgery colleagues. I do not think she has a real lidocaine allergy and she did have Mohs surgery previously in 2018 without issue reported but it seems like that is when the lidocaine was listed as an allergy. I may use benadryl in the future out of caution. #3 Face, trunk and extremities: Multiple nevi and lentigines The ABCDE criteria for melanoma was reviewed with the patient. None of the patient's nevi reach theclinical threshold for biopsy. I recommend continued sun protection, sunscreen (SPF 30 or greater),self-skin examinations, and observation. Should any of the [...] to clinically monitor the lesion(s) involving the upper nasal bridge. Repeat photographs taken today. Follow up in 6 months for a recheck of the stated lesion(s). #5 Right upper forehead: History of nodular basal cell carcinoma, status post Mohs surgery on 09/21/[address] Pinzon at [facility], no recurrence No clinical evidence of local recurrence today. Recommended monthly self-skin examinations to evaluate for new, changing, symptomatic, or otherwise worrisome lesions. Signs and symptoms of skin cancer discussed. Photoprotection was recommended. Return to Dermatology in 6-12 months for a full skin exam or immediately if any new or changing lesions [...] Annabel Jarrell M.D. Electronically Signed: percy Barrientos. 06/14/2022. 1:43 PM ACUTE CARE SURGEON. I, Annabel Jarrell M.D., personally performed the [...] Annabel Jarrell M.D. by Shannan Beckwith, on 06/14/2022, 2:34 PM ACUTE CARE SURGEON. E CARE SURGEON documented in this encounter Plan of Treatment Upcoming Encounters Date Type Department Care Team (Late st Contact Info) Description 08/30/2023 4:00 PM CDT Office Visit Department of Dermatology in [address] [phone] Annabel Jarrell M.D. [address] [place] [phone] Discharge Disposition: Home or Self Care documented as of this encounter Visit Diagnoses Diagnosis Keratosis Actinic- Primary Nevi Multiple Keratosis Seborrheic documented in this encounter Care Teams Lipcoat Sprayer Relationship Specialty Start Date End Date Unassigned, Pcp PCP - General Family Medicine 01/07/21 documented as of this encounter
--- OUTSIDE RECORDS SUMMARY | 2023-05-16 13:56 | XMS_ITS | Encounter Summary ---
Author Name Unknown Organization [facility] Address [address] [place] [address] Care Team Providers Care Volleyball Referee Name Role Phone Unassigned, Pcp Primary Care Provider Unavailabl e Reason for Referral * Outpatient (Routine) - Closed Specialty Diagnoses / Procedures Referred By Contac t Referred To Contact Dermatology Diagnoses Tumor Skin Uncertain Behavior Procedures Dermatology misc minor procedure Annabel Jarrell M.D. [address] [place] [phone] [facility] Referral ID Status Reason Start Date Expiration Date Visits Re quested Visits Authorized [id number] Closed 06/14/2022 06/14/2023 1 1 NG DEMONSTRATOR Encounter Details Date Type Department Care Team (Late st Contact Info) Description 06/14/2022 Orders Only Department of Dermatology in [place], [place] [address] [place] [phone] Annabel Jarrell M.D. [address] [place] [phone] Tumor Skin Uncertain Behavior (Primary Dx) Social History Tobacco Use Types Packs/Day Years [...] How often do you attend chur or roman catholic services? More than 4 times per year 06/09/2022 Do you belong to any clubs o r organizations such as shinto groups, unions, fraternal or athletic groups, or [...] and heating? Not hard at all 06/09/2022 [facility] [place] of Occupat ional Health - Occupational Stress [...] place to sleep or slept in a longterm (including now)? No 06/09/2022 Nutrition Answer Date [...] Sex Assigned at Female 05/20/2021 9:04 AM SEWING DEMONSTRATOR Gender Identity Female 05/20/2021 9:04 AM SEWING DEMONSTRATOR Sexual Orientation Straight 05/20/2021 9: 04 AM SEWING DEMONSTRATOR documented as of this encounter Plan of Treatment Upcoming Encounters Date Type Department Care Team (Late st Contact Info) Description 08/30/2023 4:00 PM CDT Office Visit Department of Dermatology in [address] [phone] Annabel Jarrell M.D. [address] [place] [phone] Discharge Disposition: Home or Self Care Scheduled Orders Name Type Priority Associated Diagnoses Orde r Schedule Dermatology misc minor procedure Dermatology Routine Tumor Skin Uncertain Behavior Expected: 08/03/2022, Expires: 09/12/2023 documented as of this encounter Visit Diagnoses Diagnosis Tumor Skin Uncertain Behavior- Primary documented in this encounter Care Teams Volleyball Referee Relationship Specialty Start Date End Date Unassigned, Pcp PCP - General Family Medicine 01/07/21 documented as of this encounter
== END 2023-05-16 13:51 | disposition home or self-care (01) ==
PROVIDERS: PCP Family Medicine; Visit Provider Family Medicine
DX: R10.9 Unspecified abdominal pain (principal); K52.9 Noninfective gastroenteritis and colitis, unspecified
CPT/HCPCS: 80053; 83516; 86140

== ENCOUNTER 2023-05-20 12:29 | Outpatient (CLI) | payer MEDICARE, OTHER, SELFPAY ==
--- OUTSIDE RECORDS SUMMARY | 2023-05-20 12:32 | XMS_ITS | Clinical Summary ---
Author Name Unknown Organization [facility] Address [place], [place] [address] Care Team Providers Care Electronics Utility Worker Name Role Phone Allen Johnson MD Primary Care Provider Social History Tobacco Use Types Packs/Day Years Used Date Smoking Tobacco: Never Assessed Sex and Gender Information Value Date Recorded Sex Assigned at Not on file Gender Identity Not on file Sexual Orientation Not on file Last Filed Vital Signs Vital Sign Reading Time Taken Comments Blood Pressure 135/85 03/07/2007 2:27 PM COMMERCIAL CARPENTER Pulse 66 03/07/2007 2:27 PM COMMERCIAL CARPENTER Temperature - - Respiratory Rate - - Oxygen Saturation 100% 03/07/2007 2:27 PM COMMERCIAL CARPENTER Inhaled Oxygen Concentration - - Weight 69.5 kg (153 lb 3.2 oz) 03/07/2007 2:27 P M COMMERCIAL CARPENTER Height - - Body Mass Index - [...] Influenza for age 65+ 12/24/2022 Care Teams Electronics Utility Worker Relationship Specialty Start Date End Date Allen Johnson MD [address] [place] [phone] PCP - General 03/07/07
--- OUTSIDE RECORDS SUMMARY | 2023-05-20 12:33 | XMS_ITS | Encounter Summary ---
Author Name Unknown Organization [facility] Address [address] [place] [address] Care Team Providers Care Buffing And Sueding Machine Operator Name Role Phone Unassigned, Pcp Primary Care [...] week 06/09/2022 How often do you attend [facility] or judaism services? More than 4 times per year 06/09/2022 Do you belong to any clubs o r organizations such as jainism groups, unions, fraternal or athletic groups, or [...] and heating? Not hard at all 06/09/2022 [facility] of Occupat ional Health - [...] Sex Assigned at Female 05/20/2021 9:04 AM HEAD OF PARTNER DEVELOPMENT Gender Identity Female 05/20/2021 9:04 AM HEAD OF PARTNER DEVELOPMENT Sexual Orientation Straight 05/20/2021 9: 04 AM HEAD OF PARTNER DEVELOPMENT documented as of this encounter Plan of Treatment Upcoming Encounters Date Type Department Care Team (Late st Contact Info) Description 08/30/2023 4:00 PM CDT Office Visit Department of Dermatology in [address] [phone] Annabel Jarrell M.D. [address] [place] [phone] Discharge Disposition: Home or Self Care documented [...] on filedocumented in this encounter Care Teams Buffing And Sueding Machine Operator Relationship Specialty Start Date End Date Unassigned, Pcp PCP - General Family Medicine 01/07/21 documented as of this encounter
--- OUTSIDE RECORDS SUMMARY | 2023-05-20 12:33 | XMS_ITS | Encounter Summary ---
Author Name Unknown Organization [facility] Address [address] [place] [address] Care Team Providers Care Quality Control Manager Name Role Phone Unassigned, Pcp Primary Care [...] week 06/09/2022 How often do you attend [facility] or lutheran services? More than 4 times per year 06/09/2022 Do you belong to any clubs o r organizations such as spiritism groups, unions, fraternal or athletic groups, or [...] and heating? Not hard at all 06/09/2022 [facility] of Occupat ional Health - Occupational Stress [...] Sex Assigned at Female 05/20/2021 9:04 AM ENTERPRISE SECURITY ARCHITECT Gender Identity Female 05/20/2021 9:04 AM ENTERPRISE SECURITY ARCHITECT Sexual Orientation Straight 05/20/2021 9: 04 AM ENTERPRISE SECURITY ARCHITECT documented as of this encounter Plan of Treatment Upcoming Encounters Date Type Department Care Team (Late st Contact Info) Description 08/30/2023 4:00 PM CDT Office Visit Department of Dermatology in [address] [phone] Annabel Jarrell M.D. [address] [place] [phone] Discharge Disposition: Home or Self Care documented [...] on filedocumented in this encounter Care Teams Quality Control Manager Relationship Specialty Start Date End Date Unassigned, Pcp PCP - General Family Medicine 01/07/21 documented as of this encounter
--- OUTSIDE RECORDS SUMMARY | 2023-05-20 12:33 | XMS_ITS | Encounter Summary ---
Author Name Unknown Organization [facility] Address [address] [place] [address] Care Team Providers Care Fish Drier Name Role Phone Unassigned, Pcp Primary Care [...] week 06/09/2022 How often do you attend [facility] or tenriism services? More than 4 times per year 06/09/2022 Do you belong to any clubs o r organizations such as jewish groups, unions, fraternal or athletic groups, or [...] and heating? Not hard at all 06/09/2022 [facility] of Occupat ional Health - Occupational [...] place to sleep or slept in a [facility] (including now)? No 06/09/2022 Nutrition Answer Date [...] Sex Assigned at Female 05/20/2021 9:04 AM STAVE AND BOLT EQUALIZER Gender Identity Female 05/20/2021 9:04 AM STAVE AND BOLT EQUALIZER Sexual Orientation Straight 05/20/2021 9: 04 AM STAVE AND BOLT EQUALIZER documented as of this encounter Plan of Treatment Upcoming Encounters Date Type Department Care Team (Late st Contact Info) Description 08/30/2023 4:00 PM CDT Office Visit Department of Dermatology in [address] [phone] Annabel Jarrell M.D. [address] [place] [phone] Discharge Disposition: Home or Self Care documented [...] on filedocumented in this encounter Care Teams Fish Drier Relationship Specialty Start Date End Date Unassigned, Pcp PCP - General Family Medicine 01/07/21 documented as of this encounter
--- OUTSIDE RECORDS SUMMARY | 2023-05-20 12:33 | XMS_ITS | Encounter Summary ---
Author Name Unknown Organization [facility] Address [address] [place] [address] Care Team Providers Care Electronics Warfare Technician Name Role Phone Unassigned, Pcp Primary Care Provider Unavailabl e Reason for Visit * Reason Onset Date Comments appt questions 06/21/2022 Encounter Details Date Type Department Care Team (Latest Contact Info) Description 06/21/2022 Clinical Communication Department of Dermatology in [address] [phone] Unassigned, Pcp appt questions Social [...] often do you attend chur ch or roman catholic services? More than 4 times per year 06/09/2022 Do you belong to any clubs o r organizations such as alevism groups, unions, fraternal or athletic groups, or [...] and heating? Not hard at all 06/09/2022 [facility] [place] of Occupat ional Health - Occupational Stress [...] Sex Assigned at Female 05/20/2021 9:04 AM SETTLEMENT PROCESSOR Gender Identity Female 05/20/2021 9:04 AM SETTLEMENT PROCESSOR Sexual Orientation Straight 05/20/2021 9: 04 AM SETTLEMENT PROCESSOR documented as of this encounter Plan of Treatment Upcoming Encounters Date Type Department Care Team (Late st Contact Info) Description 08/30/2023 4:00 PM CDT Office Visit Department of Dermatology in [address] [phone] Annabel Jarrell M.D. [address] [place] [phone] Discharge Disposition: Home or Self Care documented as of this encounter Visit Diagnoses Not on filedocumented in this encounter Care Teams Electronics Warfare Technician Relationship Specialty Start Date End Date Unassigned, Pcp PCP - General Family Medicine 01/07/21 documented as of this encounter
--- OUTSIDE RECORDS SUMMARY | 2023-05-20 12:33 | XMS_ITS ---
Author Name Unknown Organization [facility] Address [address] [place] [address] Care Team Providers Care Cushion Builder Name Role Phone Unavailable Unavailable Unavailable Surgery Details Not on file Complications Check Surgery Details section. Procedure Estimated Blood Loss Check Surgery Details section. Procedure Findings Check Surgery Details section. Procedure Specimens Taken Check Surgery Details section.
--- OUTSIDE RECORDS SUMMARY | 2023-05-20 12:33 | XMS_ITS | Encounter Summary ---
Author Name Unknown Organization [facility] Address [address] [place] [address] Care Team Providers Care Stained Glass Glazier Name Role Phone Unassigned, Pcp Primary Care Provider Unavailabl e Encounter Details Date Type Department Care Team ([facility] st Contact Info) Description 06/21/2022 Clinical Communication Department of Dermatology in [place], [place] [address] [place] [phone] Annabel Jarrell M.D. [address] [place] [phone] Social History Tobacco Use Types Packs/Day Years [...] often do you attend chur ch or congregational services? More than 4 times per year 06/09/2022 Do you belong to any clubs o r organizations such as latter day groups, unions, fraternal or athletic groups, or [...] and heating? Not hard at all 06/09/2022 [facility] of Occupat ional Health - Occupational [...] place to sleep or slept in a long term (including now)? No 06/09/2022 Nutrition Answer Date [...] Sex Assigned at Female 05/20/2021 9:04 AM MOTOR COACH TOUR OPERATOR Gender Identity Female 05/20/2021 9:04 AM MOTOR COACH TOUR OPERATOR Sexual Orientation Straight 05/20/2021 9: 04 AM MOTOR COACH TOUR OPERATOR documented as of this encounter Miscellaneous Notes * Telephone Encounter - Glory Murray R.N. - 06/21/2022 9:15 AM MOTOR COACH TOUR OPERATOR Allergy has been removed from her chart. R COACH TOUR OPERATOR documented in this encounter Plan of Treatment Upcoming Encounters Date Type Department Care Team (Late st Contact Info) Description 08/30/2023 4:00 PM CDT Office Visit Department of Dermatology in [address] [place] [phone] Annabel Jarrell M.D. [address] [place] [phone] Discharge Disposition: Home or Self Care documented as of this encounter Visit Diagnoses Not on filedocumented in this encounter Care Teams Stained Glass Glazier Relationship Specialty Start Date End Date Unassigned, Pcp PCP - General Family Medicine 01/07/21 documented as of this encounter
--- OUTSIDE RECORDS SUMMARY | 2023-05-20 12:33 | XMS_ITS | Clinical Summary ---
Author Name Unknown Organization [facility] Address [address] [place] [address] Care Team Providers Care Manager Company Name Role Phone Unassigned, Pcp Primary Care Provider Unavailabl e Source Comments Patient records contain information from all sites at [facility]. For routine questions regarding patient records, call [phone] during business hours, M-F 8:00 AM - 5:00 PM Central Time. Record requests for emergency care only can be directed to [phone] at any time.[facility] Allergies Active Allergy Reactions Criticality Noted Date [...] Neto Red Maternal Grandmother Damien Phoenix Mother Amaad Red Social History Tobacco Use Types Packs/Day [...] and heating? Not hard at all 06/09/2022 [facility] of Occupat ional Health - Occupational Stress [...] place to sleep or slept in a fci (including now)? No 06/09/2022 Nutrition Answer Date [...] Sex Assigned at Female 05/20/2021 9:04 AM MACHINE CLIPPER Gender Identity Female 05/20/2021 9:04 AM MACHINE CLIPPER Sexual Orientation Straight 05/20/2021 9: 04 AM MACHINE CLIPPER Last Filed Vital Signs Vital Sign Reading [...] Office Visit Department of Dermatology in [address] [phone] Annabel Jarrell M.D. [address] [place] [address] Discharge Disposition: Home or Self Care Health [...] , 01/22/2021, Additional history exists Care Teams Manager Company Relationship Specialty Start Date End Date Unassigned, Pcp PCP - General Family Medicine 01/07/21
--- OUTSIDE RECORDS SUMMARY | 2023-05-20 12:33 | XMS_ITS | Encounter Summary ---
Author Name Unknown Organization [facility] Address [address] [place] [address] Care Team Providers Care Beer Still Runner Compounder Name Role Phone Unassigned, Pcp Primary Care Provider Unavailabl e Encounter Details Date Type Department Care Team (Late st Contact Info) Description 06/14/2022 2:10 PM RELATIONSHIP BANKER Ancillary Procedure Department of Dermatology Social History [...] week 06/09/2022 How often do you attend [facility] or tenriism services? More than 4 [...] and heating? Not hard at all 06/09/2022 [facility] of Occupat ional Health - [...] place to sleep or slept in a custodial (including now)? No 06/09/2022 Nutrition Answer Date [...] Sex Assigned at Female 05/20/2021 9:04 AM RELATIONSHIP BANKER Gender Identity Female 05/20/2021 9:04 AM RELATIONSHIP BANKER Sexual Orientation Straight 05/20/2021 9: 04 AM RELATIONSHIP BANKER documented as of this encounter Plan of Treatment Upcoming Encounters Date Type Department Care Team (Late st Contact Info) Description 08/30/2023 4:00 PM CDT Office Visit Department of Dermatology in [address] [phone] Annabel Jarrell M.D. [address] [place] [phone] Discharge Disposition: Home or Self Care documented as of this encounter Procedures Procedure Name Priority Date/Time Associated Diagnosis Comments DERMATOLOGY IMAGE EXAM Routine 06/14/2022 2:09 PM RELATIONSHIP BANKER documented in this encounter Results * cheek, right jawline 38-Dermatology Image Exam (06/14/2022 2:09 PM RELATIONSHIP BANKER) 06/14/2022 2:06 PM RELATIONSHIP BANKER Narrative IIMS - 06/14/2022 2:09 PM RELATIONSHIP BANKER This order has been created and auto-finalized to support the import of images acquired without order. The clinical documentation to support these images can be found on the encounter that produced images. Provider Not In System IMG NON RAD IMAGI NG PROCEDURES IIMS NA documented in this encounter Visit Diagnoses Not on filedocumented in this encounter Care Teams Beer Still Runner Compounder Relationship Specialty Start Date End Date Unassigned, Pcp PCP - General Family Medicine 01/07/21 documented as of this encounter
--- OUTSIDE RECORDS SUMMARY | 2023-05-20 12:33 | XMS_ITS | Encounter Summary ---
Author Name Unknown Organization [facility] Address [address] [place] [address] Care Team Providers Care Automatic Punch Press Operator Name Role Phone Unassigned, Pcp Primary Care Provider Unavailabl e Reason for Visit * Reason Comments Skin Check * Appointment Request (Routine) - Closed Specialty Diagnoses / Procedures Referred By Carroll mendez Referred To Contact Dermatology Referral ID Status Reason Start Date Expiration Date Visits Re quested Visits Authorized [id number] Closed 08/31/2022 08/31/2023 1 1 Encounter Details Date Type Department Care Team (Late st Contact Info) Description 01/18/2023 2:00 PM CDT Office Visit Department of Dermatology in [address] [phone] Annabel Jarrell M.D. 200 [place] [address] Keratosis Actinic (Primary Dx); Nevi Multiple; Keratosis [...] week 06/09/2022 [facility] or [facility] services? More than 4 times per year 06/09/2022 Do you belong to any clubs o r organizations such as christianity groups, unions, fraternal or athletic groups, or [...] and heating? Not hard at all 06/09/2022 [facility] of Occupat ional Health - Occupational Stress [...] place to sleep or slept in a halfway (including now)? No 06/09/2022 Nutrition Answer Date [...] Sex Assigned at Female 05/20/2021 9:04 AM INCINERATOR PLANT GENERAL SUPERVISOR Gender Identity Female 05/20/2021 9:04 AM INCINERATOR PLANT GENERAL SUPERVISOR Sexual Orientation Straight 05/20/2021 9: 04 AM INCINERATOR PLANT GENERAL SUPERVISOR documented as of this encounter Progress Notes [...] Mohs surgery on 09/21/[address] Pinzon [facility]. She denies a personal or family history for melanoma. Her mother and father have had non-melanoma skin cancers. She uses sunscreen. She reports some dryness and scaling involving the scalp that she would like evaluated today. MEDICAL HISTORY 1. Right upper forehead: History of nodular basal cell carcinoma, status post Mohs surgery on 09/21/[address] Pinzon at [facility] 2. Negative for melanoma 3. History [...] extremities. My scribe (Shannan) served as a transportation officer for the entirety of the exam. Examination [...] surgery on 09/21/[address] Pinzon at [facility], no recurrence No clinical evidence of [...] M.D. Scribed for Annabel Jarrell M.D. by Sahnnan Beckwith, on 01/18/2023, 1:12 PM CDT. documented in this encounter Plan of Treatment Upcoming Encounters Date Type Department Care Team (Late st Contact Info) Description 08/30/2023 4:00 PM CDT Office Visit Department of Dermatology in [address] [address] Annabel Jarrell M.D. [address] [place] [address] Discharge Disposition: Home or Self Care documented as of this encounter Visit Diagnoses Diagnosis Keratosis Actinic- Primary Nevi Multiple Keratosis Seborrheic Cancer Skin Basal Cell Personal History documented in this encounter Care Teams Automatic Punch Press Operator Relationship Specialty Start Date End Date Unassigned, Pcp PCP - General Family Medicine 01/07/21 documented as of this encounter
--- OUTSIDE RECORDS SUMMARY | 2023-05-20 12:33 | XMS_ITS | Encounter Summary ---
Author Name Unknown Organization [facility] Address [address] [place] [address] Care Team Providers Care Warehouse Material Handler Name Role Phone Unassigned, Pcp Primary Care Provider Unavailabl e Reason for Referral * Outpatient (Routine) - Closed Specialty Diagnoses / Procedures Referred By Contac t Referred To Contact Dermatology Diagnoses Tumor Skin Uncertain Behavior Procedures Dermatology misc minor procedure Annabel Jarrell M.D. 200 [place] [address] [facility] Referral ID Status Reason Start Date Expiration Date Visits Re quested Visits Authorized [id number] Closed 06/14/2022 06/14/2023 1 1 BREAKER Encounter Details Date Type Department Care Team (Late st Contact Info) Description 06/14/2022 Orders Only Department of Dermatology in [place], [place] [address] [place] [phone] Annabel Jarrell M.D. [address] [place] [phone] Tumor Skin Uncertain Behavior (Primary Dx) Social [...] How often do you attend chur or episcopalian services? More than 4 times per year [...] and heating? Not hard at all 06/09/2022 [facility] [place] of Occupat ional Health - Occupational Stress [...] place to sleep or slept in a fpc (including now)? No 06/09/2022 Nutrition Answer Date [...] Sex Assigned at Female 05/20/2021 9:04 AM COP BREAKER Gender Identity Female 05/20/2021 9:04 AM COP BREAKER Sexual Orientation Straight 05/20/2021 9: 04 AM COP BREAKER documented as of this encounter Plan of Treatment Upcoming Encounters Date Type Department Care Team (Late st Contact Info) Description 08/30/2023 4:00 PM CDT Office Visit Department of Dermatology in [address] [phone] Annabel Jarrell M.D. [address] [place] [address] Discharge Disposition: Home or Self Care Scheduled Orders Name Type Priority Associated Diagnoses Orde r Schedule Dermatology misc minor procedure Dermatology Routine Tumor Skin Uncertain Behavior Expected: 08/03/2022, Expires: 09/12/2023 documented as of this encounter Visit Diagnoses Diagnosis Tumor Skin Uncertain Behavior- Primary documented in this encounter Care Teams Warehouse Material Handler Relationship Specialty Start Date End Date Unassigned, Pcp PCP - General Family Medicine 01/07/21 documented as of this encounter
--- OUTSIDE RECORDS SUMMARY | 2023-05-20 12:33 | XMS_ITS | Encounter Summary ---
Author Name Unknown Organization [facility] Address [address] [place] [address] Care Team Providers Care Acoustical Logging Engineer Name Role Phone Unassigned, Pcp Primary Care [...] week 06/09/2022 How often do you attend [facility] or tenriism services? More than 4 times per year 06/09/2022 Do you belong to any clubs o r organizations such as zoroastrian groups, unions, fraternal or athletic groups, or [...] and heating? Not hard at all 06/09/2022 [facility] of Occupat ional Health - Occupational [...] place to sleep or slept in a usp (including now)? No 06/09/2022 Nutrition Answer Date [...] Sex Assigned at Female 05/20/2021 9:04 AM MARINE PHOTOGRAPHER Gender Identity Female 05/20/2021 9:04 AM MARINE PHOTOGRAPHER Sexual Orientation Straight 05/20/2021 9: 04 AM MARINE PHOTOGRAPHER documented as of this encounter Plan of Treatment Upcoming Encounters Date Type Department Care Team (Late st Contact Info) Description 08/30/2023 4:00 PM CDT Office Visit Department of Dermatology in [address] [phone] Annabel Jarrell M.D. [address] [place] [phone] Discharge Disposition: Home or Self Care documented [...] on filedocumented in this encounter Care Teams Acoustical Logging Engineer Relationship Specialty Start Date End Date Unassigned, Pcp PCP - General Family Medicine 01/07/21 documented as of this encounter
--- OUTSIDE RECORDS SUMMARY | 2023-05-20 12:33 | XMS_ITS | Encounter Summary ---
Author Name Unknown Organization [facility] Address [address] [place] [address] Care Team Providers Care Editorial Cartoonist Name Role Phone Unassigned, Pcp Primary Care Provider Unavailabl e Encounter Details Date Type Department Care Team (Late st Contact Info) Description 06/14/2022 2:15 PM MERCHANDISING ASSISTANT Ancillary Procedure Department of Dermatology Social History [...] week 06/09/2022 How often do you attend [facility] or sabianist services? More than 4 times per year 06/09/2022 Do you belong to any clubs o r organizations such as nondenominational groups, unions, fraternal or athletic groups, or [...] and heating? Not hard at all 06/09/2022 [facility] of Occupat ional Health - [...] Sex Assigned at Female 05/20/2021 9:04 AM MERCHANDISING ASSISTANT Gender Identity Female 05/20/2021 9:04 AM MERCHANDISING ASSISTANT Sexual Orientation Straight 05/20/2021 9: 04 AM MERCHANDISING ASSISTANT documented as of this encounter Plan of Treatment Upcoming Encounters Date Type Department Care Team (Late st Contact Info) Description 08/30/2023 4:00 PM CDT Office Visit Department of Dermatology in [address] [phone] Annabel Jarrell M.D. [address] [place] [phone] Discharge Disposition: Home or Self Care documented as of this encounter Procedures Procedure Name Priority Date/Time Associated Diagnosis Comments DERMATOLOGY IMAGE EXAM Routine 06/14/2022 2:09 PM MERCHANDISING ASSISTANT documented in this encounter Results * Nose 510-Dermatology Image Exam (06/14/2022 2:09 PM MERCHANDISING ASSISTANT) 06/14/2022 2:06 PM MERCHANDISING ASSISTANT Narrative IIMS - 06/14/2022 2:09 PM MERCHANDISING ASSISTANT This order has been created and auto-finalized to support the import of images acquired without order. The clinical documentation to support these images can be found on the encounter that produced images. Provider Not In System IMG NON RAD IMAGI NG PROCEDURES IIMS NA documented in this encounter Visit Diagnoses Not on filedocumented in this encounter Care Teams Editorial Cartoonist Relationship Specialty Start Date End Date Unassigned, Pcp PCP - General Family Medicine 01/07/21 documented as of this encounter
--- OUTSIDE RECORDS SUMMARY | 2023-05-20 12:33 | XMS_ITS | Encounter Summary ---
Author Name Unknown Organization [facility] Address [address] [place] [address] Care Team Providers Care Nurses' Association Executive Director Name Role Phone Unassigned, Pcp Primary Care Provider Unavailabl e Reason for Visit * Reason Comments Med Refill Encounter Details Date Type Department Care Team (Late st Contact Info) Description 06/02/2022 Refill Division of Endocrinology in [place], [place] [address] [place] [phone] Brian Spaer M.D., Ph.D. [address] [place] [phone] Med Refill Social History Tobacco Use Types [...] often do you attend chur ch or adventism services? More than 4 times per year 11/16/2021 Do you belong to any clubs o r organizations such as yarsanism groups, unions, fraternal or athletic groups, or [...] and heating? Not hard at all 11/16/2021 [facility] of Occupat ional Health - Occupational [...] place to sleep or slept in a detention (including now)? No 11/16/2021 Nutrition Answer Date [...] Sex Assigned at Female 05/20/2021 9:04 AM SCRAP CUTTER Gender Identity Female 05/20/2021 9:04 AM SCRAP CUTTER Sexual Orientation Straight 05/20/2021 9: 04 AM SCRAP CUTTER documented as of this encounter Plan of Treatment Upcoming Encounters Date Type Department Care Team (Late st Contact Info) Description 08/30/2023 4:00 PM CDT Office Visit Department of Dermatology in [address] [phone] Annabel Jarrell M.D. [address] [place] [address] Discharge Disposition: Home or Self Care documented as of this encounter Visit Diagnoses Not on filedocumented in this encounter Care Teams Nurses' Association Executive Director Relationship Specialty Start Date End Date Unassigned, Pcp PCP - General Family Medicine 01/07/21 documented as of this encounter
--- OUTSIDE RECORDS SUMMARY | 2023-05-20 12:33 | XMS_ITS | Encounter Summary ---
Author Name Unknown Organization [facility] Address [address] [place] [address] Care Team Providers Care Engine Repair Supervisor Name Role Phone Unassigned, Pcp Primary Care Provider Unavailabl e Reason for Visit * Reason Comments Biopsy * Outpatient (Routine) - Closed Specialty Diagnoses / Procedures Referred By Carroll t Referred To Contact Dermatology Diagnoses Tumor Skin Uncertain Behavior Procedures Dermatology misc minor procedure Annabel Jarrell M.D. 200 [place] [address] [facility] Referral ID Status Reason Start Date Expiration Date Visits Re quested Visits Authorized [id number] Closed 06/14/2022 06/14/2023 1 1 Encounter Details Date Type Department Care Team (Latest Contact Info) Description 08/31/2022 10:15 AM CDT Procedure visit Department of Dermatology in [address] [phone] Annabel Jarrell M.D. 200 [place] [phone] Keratosis Seborrheic (Primary Dx); Tumor Skin Uncertain [...] How often do you attend chur or baptist services? More than 4 times per year 06/09/2022 Do you belong to any clubs o r organizations such as presybeterian groups, unions, fraternal or athletic groups, or [...] and heating? Not hard at all 06/09/2022 [facility] [place] of Occupat ional Health - Occupational Stress [...] Sex Assigned at Female 05/20/2021 9:04 AM GRIPPER ATTACHER Gender Identity Female 05/20/2021 9:04 AM GRIPPER ATTACHER Sexual Orientation Straight 05/20/2021 9: 04 AM GRIPPER ATTACHER documented as of this encounter Progress Notes [...] surgery on 09/21/[address] Pinzon at [facility]. She denies a personal or family [...] surgery on 09/21/[address] Pinzon at [facility] 2. Negative for melanoma 3. History [...] the patient by letter. Patient given pamphlet [id number]. Discussed the risks, benefits, alternatives, and the [...] CDT Right preauricular area: Benign lesion letter [facility] patient. Please send letter documented in this encounter Plan of Treatment Upcoming Encounters Date Type Department Care Team (Late st Contact Info) Description 08/30/2023 4:00 PM CDT Office Visit Department of Dermatology in [address] [phone] Annabel Jarrell M.D. [address] [place] [address] Discharge Disposition: Home or Self Care documented [...] Jarrell M.D. LAB PATH DERM ORDERA BLES [facility] [address] [place] [address], [facility] [address] [place] [phone] documented in this encounter Visit Diagnoses Diagnosis Keratosis Seborrheic- Primary Tumor Skin Uncertain Behavior documented in this encounter Care Teams Engine Repair Supervisor Relationship Specialty Start Date End Date Unassigned, Pcp PCP - General Family Medicine 01/07/21 documented as of this encounter
--- OUTSIDE RECORDS SUMMARY | 2023-05-20 12:33 | XMS_ITS | Encounter Summary ---
Author Name Unknown Organization [facility] Address [address] [place] [address] Care Team Providers Care It Support Engineer Name Role Phone Unassigned, Pcp Primary Care Provider Unavailabl e Reason for Visit * Reason Comments Skin Check * Appointment Request (Routine) - Closed Specialty Diagnoses / Procedures Referred By Carroll mendez Referred To Contact Dermatology Referral ID Status Reason Start Date Expiration Date Visits Re quested Visits Authorized [id number] Closed 03/15/2022 03/15/2023 1 1 Encounter Details Date Type Department Care Team (Late st Contact Info) Description 06/14/2022 1:30 PM COLORED LEATHER SETTER Office Visit Department of Dermatology in [address] [phone] Annabel Jarrell M.D. [address] [place] [address] Keratosis Actinic (Primary Dx); Nevi Multiple; Keratosis [...] any clubs o r organizations such as hinduism groups, unions, fraternal or athletic groups, or [...] and heating? Not hard at all 06/09/2022 [facility] [place] of Occupat ional Health - Occupational Stress [...] Sex Assigned at Female 05/20/2021 9:04 AM COLORED LEATHER SETTER Gender Identity Female 05/20/2021 9:04 AM COLORED LEATHER SETTER Sexual Orientation Straight 05/20/2021 9: 04 AM COLORED LEATHER SETTER documented as of this encounter Progress Notes [...] surgery on 09/21/[address] Pinzon at [facility]. She denies a personal or family history for melanoma. Her mother and father have had non-melanoma skin cancers. She uses sunscreen. She denies any new or changing lesions today. MEDICAL HISTORY 1. Right upper forehead: History of nodular basal cell carcinoma, status post Mohs surgery on 09/21/[address] Pinzon at [facility] 2. Negative for melanoma 3. History [...] extremities. My scribe (Shannan) served as a rib bender for the entirety of the exam. Examination [...] patient is going on a trip to [place] in the near future and I wouldlike [...] surgery on 09/21/[address] Pinzon at [facility], no recurrence No clinical evidence of [...] Electronically Signed: percy Barrientos. 06/14/2022. 1:43 PM COLORED LEATHER SETTER. I, Annabel Jarrell M.D., personally performed the [...] by Shannan Beckwith, on 06/14/2022, 2:34 PM COLORED LEATHER SETTER. RED LEATHER SETTER documented in this encounter Plan of Treatment Upcoming Encounters Date Type Department Care Team (Late st Contact Info) Description 08/30/2023 4:00 PM CDT Office Visit Department of Dermatology in [address] [phone] Annabel Jarrell M.D. [address] [place] [phone] Discharge Disposition: Home or Self Care documented as of this encounter Visit Diagnoses Diagnosis Keratosis Actinic- Primary Nevi Multiple Keratosis Seborrheic documented in this encounter Care Teams It Support Engineer Relationship Specialty Start Date End Date Unassigned, Pcp PCP - General Family Medicine 01/07/21 documented as of this encounter
--- OUTSIDE RECORDS SUMMARY | 2023-05-20 12:33 | XMS_ITS | Referral Summary ---
Author Name Unknown Organization [facility] Address [address] [place] [address] Care Team Providers Care Level Vial Grinder Name Role Phone Unassigned, Pcp Primary Care Provider Unavailabl e Source Comments Patient records contain information from all sites at [facility]. For routine questions regarding patient records, call [phone] during business hours, M-F 8:00 AM - 5:00 PM Central Time. Record requests for emergency care only can be directed to [phone] at any time.[facility] Allergies Active Allergy Reactions Criticality Noted Date [...] How often do you attend chur or congregation services? More than 4 times per year 06/09/2022 Do you belong to any clubs o r organizations such as scientologist groups, unions, fraternal or athletic groups, or [...] heating? Not hard at all 06/09/2022 [facility] [place] of Occupat ional Health - Occupational Stress [...] place to sleep or slept in a alf (including now)? No 06/09/2022 Nutrition Answer Date [...] Sex Assigned at Female 05/20/2021 9:04 AM SPA SUPERVISOR Gender Identity Female 05/20/2021 9:04 AM SPA SUPERVISOR Sexual Orientation Straight 05/20/2021 9: 04 AM SPA SUPERVISOR Last Filed Vital Signs Vital Sign Reading [...] Office Visit Department of Dermatology in [address] [phone] Annabel Jarrell M.D. [address] [place] [phone] Discharge Disposition: Home or Self Care Care Teams Level Vial Grinder Relationship Specialty Start Date End Date Unassigned, Pcp PCP - General Family Medicine 01/07/21
--- NOTE | 2023-05-20 13:00 | CRLHL7_ITS ---
For Patients: As a result of the Century Cures Act, medical imaging exams and procedure reports are released immediately into your electronic medical record. You may view this report before your referring provider. If you have questions, please contact your health care provider. Indication: Chronic LOOSE STOOLS, ABD PAIN X5 WEEKS Technique: CT Abdomen/Pelvis W/ 79CC ISOVUE 370 Please note that all CT scans at this facility use dose modulation, iterative reconstruction, and/or weight-based dosing when appropriate to reduce radiation dose to as low as reasonably achievable. Comparison: 01/03/2023, 08/02/2022 Findings: Mild scarring both lung bases. Incidental bone island within the right medial pubic bone. Similar appearance of the GE junction. No gastric outlet obstruction. The spleen is normal. No intrahepatic mass. The gallbladder is normal. Normal adrenal glands. Kidneys are within normal limits. Mild vascular calcifications. Pancreas is normal. Bladder normal. No pelvic soft tissue mass. Sigmoid diverticulosis. No diverticulitis. No bowel obstruction or free air. No free fluid or adenopathy. No abscess. Incidental splenule. Stable small fat filled left inguinal hernia. Facet degeneration lower lumbar spine with slight anterolisthesis of L4 on L5. Degenerative disc disease L1-2. similar appearance of the soft tissues adjacent to the bladder. Impression: Hepatomegaly. The liver measures 20.3 cm. No intrahepatic mass or ascites. Normal patency of the portal vein. Spleen is normal. Sigmoid diverticulosis. No diverticulitis. No bowel obstruction. Stable small fat filled left inguinal hernia measuring 2 cm. No evidence of enteritis or colitis. Please note that all CT scans at this facility use dose modulation, iterative reconstruction, and/or weight-based dosing when appropriate to reduce radiation dose to as low as reasonably achievable. Dictated by Renato Hayes MD @ 05/20/2023 2:15:25 PM (Electronically Signed)
== END 2023-05-20 12:30 | disposition home or self-care (01) ==
LOC: CT 12:31
PROVIDERS: PCP Family Medicine; Visit Provider Family Medicine
DX: R10.9 Unspecified abdominal pain (principal); R16.0 Hepatomegaly, not elsewhere classified; K57.30 Diverticulosis of large intestine without perforation or abscess without bleeding; K40.90 Unilateral inguinal hernia, without obstruction or gangrene, not specified as recurrent; R19.5 Other fecal abnormalities
CPT/HCPCS: 74177; Q9967

== ENCOUNTER 2023-05-25 09:30 | Outpatient (CLI) | payer MEDICARE, OTHER, SELFPAY ==
--- OUTSIDE RECORDS SUMMARY | 2023-05-26 06:43 | XMS_ITS | Referral Summary ---
Author Name Unknown Organization [facility] Address [address] [place] [address] Care Team Providers Care Tents Assembler Name Role Phone Unassigned, Pcp Primary Care Provider Unavailabl e Source Comments Patient records contain information from all sites at [facility]. For routine questions regarding patient records, call [phone] during business hours, M-F 8:00 AM - 5:00 PM Central Time. Record requests for emergency care only can be directed to [phone] at any time.[facility] Allergies Active Allergy Reactions Criticality Noted [...] Injectable 02/19/2008 Influenza, Unspecified 02/19/2008 PCV13 06/24/2016 PPSV23(Discontinued) 03/02/2021 RZV (SHINGRIX) 06/22/2019,03/14/2019 Rabies, intramuscular, historical 2012,01/01/2013,12/26/2012,2012,12/18/2012 SARS-COV-2 (COVID-19) - PFIZ ER (Discontinued)(12 years or older) 01/07/2021,06/06/2020,05/16/2020 Td (Adult), adsorbed [...] any clubs o r organizations such as adventism groups, unions, fraternal or athletic groups, or [...] and heating? Not hard at all 06/09/2022 [employer] [place] of Occupat ional Health - Occupational Stress [...] Date Recorded Dental: Regular Dentist Yes 08/29/19 21 Employment Answer Date Recorded Employment status Retired 06/09/2022 Education Answer Date Recorded What is the highest level of school you have completed or the highest degree you have received? Some college, no degree 08/28/2020 Sex and Gender Information Value Date Recorded Sex Assigned at Female 05/20/2021 9:04 AM STUDENT FINANCIAL SERVICES COUNSELOR Gender Identity Female 05/20/2021 9:04 AM STUDENT FINANCIAL SERVICES COUNSELOR Sexual Orientation Straight 05/20/2021 9: 04 AM STUDENT FINANCIAL SERVICES COUNSELOR Last Filed Vital Signs Vital Sign Reading [...] CDT Office Visit Department of Dermatology in [address] [phone] Annabel Jarrell M.D. [address] [place] [phone] Discharge Disposition: Home or Self Care Care Teams Tents Assembler Relationship Specialty Start Date End Date Unassigned, Pcp PCP - General Family Medicine 01/07/21
--- OUTSIDE RECORDS SUMMARY | 2023-05-26 06:43 | XMS_ITS | Clinical Summary ---
Author Name Unknown Organization [facility] Address [address] [place] [address] Care Team Providers Care Leak Detection Engineer Name Role Phone Unassigned, Pcp Primary Care Provider Unavailabl e Source Comments Patient records contain information from all sites at [facility]. For routine questions regarding patient records, call [phone] during business hours, M-F 8:00 AM - 5:00 PM Central Time. Record requests for emergency care only can be directed to [phone] at any time.[facility] Allergies [...] How often do you attend chur or orthodoxy services? More than 4 times per year 06/09/2022 Do you belong to any clubs o r organizations such as druze groups, unions, fraternal or athletic groups, or [...] and heating? Not hard at all 06/09/2022 [facility] of Occupat ional Health - Occupational Stress [...] Sex Assigned at Female 05/20/2021 9:04 AM ELECTRONIC ENGINEERING DRAFTSPERSON Gender Identity Female 05/20/2021 9:04 AM ELECTRONIC ENGINEERING DRAFTSPERSON Sexual Orientation Straight 05/20/2021 9: 04 AM ELECTRONIC ENGINEERING DRAFTSPERSON Last Filed Vital Signs Vital Sign Reading [...] Office Visit Department of Dermatology in [address] [phone] Annabel Jarrell M.D. [address] [place] [address] Discharge Disposition: Home or Self Care Health [...] , 01/22/2021, Additional history exists Care Teams Leak Detection Engineer Relationship Specialty Start Date End Date Unassigned, Pcp PCP - General Family Medicine 01/07/21
--- OUTSIDE RECORDS SUMMARY | 2023-05-26 06:43 | XMS_ITS | Clinical Summary ---
Author Name Unknown Organization [facility] Address [place], [place] [address] Care Team Providers Care Sample Body Builder Name Role Phone Allen Johnson MD Primary Care Provider Social History Tobacco Use Types Packs/Day Years Used Date Smoking Tobacco: Never Assessed Sex and Gender Information Value Date Recorded Sex Assigned at Not on file Gender Identity Not on file Sexual Orientation Not on file Last Filed Vital Signs Vital Sign Reading Time Taken Comments Blood Pressure 135/85 03/07/2007 2:27 PM GUN SYNCHRONIZER Pulse 66 03/07/2007 2:27 PM GUN SYNCHRONIZER Temperature - - Respiratory Rate - - Oxygen Saturation 100% 03/07/2007 2:27 PM GUN SYNCHRONIZER Inhaled Oxygen Concentration - - Weight 69.5 kg (153 lb 3.2 oz) 03/07/2007 2:27 P M GUN SYNCHRONIZER Height - - Body Mass Index - [...] Influenza for age 65+ 12/24/2022 Care Teams Sample Body Builder Relationship Specialty Start Date End Date Allen Johnson MD [address] [place] [id number] PCP - General 03/07/07
--- OUTSIDE RECORDS SUMMARY | 2023-05-26 06:44 | XMS_ITS | Encounter Summary ---
Author Name Unknown Organization [facility] Address [address] [place] [address] Care Team Providers Care Gse Mechanic Name Role Phone Unassigned, Pcp Primary Care Provider Unavailabl e Reason for Visit * Reason Comments Biopsy * Outpatient (Routine) - Closed Specialty Diagnoses / Procedures Referred By Carroll t Referred To Contact Dermatology Diagnoses Tumor Skin Uncertain Behavior Procedures Dermatology misc minor procedure Annabel Jarrell M.D. 200 [place] [phone] [facility] Referral ID Status Reason Start Date Expiration Date Visits Re quested Visits Authorized [id number] Closed 06/14/2022 06/14/2023 1 1 Encounter Details Date Type Department Care Team (Latest Contact Info) Description 08/31/2022 10:15 AM CDT Procedure visit Department of Dermatology in [address] [phone] Annabel Jarrell M.D. 200 [place] [phone] Keratosis Seborrheic (Primary Dx); Tumor Skin Uncertain [...] How often do you attend chur or religion services? More than 4 times per year 06/09/2022 Do you belong to any clubs o r organizations such as uatsdin groups, unions, fraternal or athletic groups, or [...] and heating? Not hard at all 06/09/2022 [facility] of Occupat ional Health - Occupational Stress [...] Sex Assigned at Female 05/20/2021 9:04 AM GROUNDMAN Gender Identity Female 05/20/2021 9:04 AM GROUNDMAN Sexual Orientation Straight 05/20/2021 9: 04 AM GROUNDMAN documented as of this encounter Progress Notes [...] surgery on 09/21/[address] Pinzon at [facility]. She denies a personal or family [...] surgery on 09/21/[address] Pinzon at [facility] 2. Negative for melanoma 3. History [...] the patient by letter. Patient given pamphlet [id number]. Discussed the risks, benefits, alternatives, and the [...] CDT Right preauricular area: Benign lesion letter [place] patient. Please send letter documented in this encounter Plan of Treatment Upcoming Encounters Date Type Department Care Team (Late st Contact Info) Description 08/30/2023 4:00 PM CDT Office Visit Department of Dermatology in [address] [phone] Annabel Jarrell M.D. [address] [place] [address] Discharge Disposition: Home or Self Care documented [...] Jarrell M.D. LAB PATH DERM ORDERA BL[facility] [address] [place] [id number], [facility] [address] [place] [phone] documented in this encounter Visit Diagnoses Diagnosis Keratosis Seborrheic- Primary Tumor Skin Uncertain Behavior documented in this encounter Care Teams Gse Mechanic Relationship Specialty Start Date End Date Unassigned, Pcp PCP - General Family Medicine 01/07/21 documented as of this encounter
--- OUTSIDE RECORDS SUMMARY | 2023-05-26 06:44 | XMS_ITS | Encounter Summary ---
Author Name Unknown Organization [facility] Address [address] [place] [address] Care Team Providers Care Rasper Machine Operator Name Role Phone Unassigned, Pcp [...] week 06/09/2022 How often do you attend [facility] or synagogue services? More than 4 times per year 06/09/2022 Do you belong to any clubs o r organizations such as rastafarian groups, unions, fraternal or athletic groups, or [...] heating? Not hard at all 06/09/2022 [facility] of Occupat ional Health - [...] place to sleep or slept in a intermediate (including now)? No 06/09/2022 Nutrition Answer Date [...] Sex Assigned at Female 05/20/2021 9:04 AM PHOTO STUDIO ASSISTANT Gender Identity Female 05/20/2021 9:04 AM PHOTO STUDIO ASSISTANT Sexual Orientation Straight 05/20/2021 9: 04 AM PHOTO STUDIO ASSISTANT documented as of this encounter Plan of Treatment Upcoming Encounters Date Type Department Care Team (Late st Contact Info) Description 08/30/2023 4:00 PM CDT Office Visit Department of Dermatology in [address] [phone] Annabel Jarrell M.D. [address] [place] [phone] Discharge Disposition: Home or Self Care documented [...] on filedocumented in this encounter Care Teams Rasper Machine Operator Relationship Specialty Start Date End Date Unassigned, Pcp PCP - General Family Medicine 01/07/21 documented as of this encounter
--- OUTSIDE RECORDS SUMMARY | 2023-05-26 06:44 | XMS_ITS | Encounter Summary ---
Author Name Unknown Organization [facility] Address [address] [place] [address] Care Team Providers Care Capacity Manager Name Role Phone Unassigned, Pcp Primary Care Provider Unavailabl e Reason for Visit * Reason Comments Skin Check * Appointment Request (Routine) - Closed Specialty Diagnoses / Procedures Referred By Carroll mendez Referred To Contact Dermatology Referral ID Status Reason Start Date Expiration Date Visits Re quested Visits Authorized [id number] Closed 03/15/2022 03/15/2023 1 1 Encounter Details Date Type Department Care Team (Late st Contact Info) Description 06/14/2022 1:30 PM HOUSEKEEPER CAREGIVER Office Visit Department of Dermatology in [address] [phone] Annabel Jarrell M.D. [address] [place] [address] Keratosis Actinic (Primary Dx); Nevi Multiple; Keratosis [...] How often do you attend chur or hinduism services? More than 4 times per year [...] and heating? Not hard at all 06/09/2022 [facility] [place] of Occupat ional Health - Occupational Stress [...] Sex Assigned at Female 05/20/2021 9:04 AM HOUSEKEEPER CAREGIVER Gender Identity Female 05/20/2021 9:04 AM HOUSEKEEPER CAREGIVER Sexual Orientation Straight 05/20/2021 9: 04 AM HOUSEKEEPER CAREGIVER documented as of this encounter Progress Notes [...] surgery on 09/21/[address] Pinzon at [facility]. She denies a personal or family history for melanoma. Her mother and father have had non-melanoma skin cancers. She uses sunscreen. She denies any new or changing lesions today. MEDICAL HISTORY 1. Right upper forehead: History of nodular basal cell carcinoma, status post Mohs surgery on 09/21/[address] Pinzon at [facility] 2. Negative for melanoma 3. History [...] extremities. My scribe (Shannan) served as a manager property for the entirety of the exam. Examination [...] patient is going on a trip to [place] in the near future and I wouldlike [...] surgery on 09/21/[address] Pinzon at [facility], no recurrence No clinical evidence of [...] Electronically Signed: percy Barrientos. 06/14/2022. 1:43 PM HOUSEKEEPER CAREGIVER. I, Annabel Jarrell M.D., personally performed the [...] by Shannan Beckwith, on 06/14/2022, 2:34 PM HOUSEKEEPER CAREGIVER. EKEEPER CAREGIVER documented in this encounter Plan of Treatment Upcoming Encounters Date Type Department Care Team (Late st Contact Info) Description 08/30/2023 4:00 PM CDT Office Visit Department of Dermatology in [address] [phone] Annabel Jarrell M.D. [address] [place] [phone] Discharge Disposition: Home or Self Care documented as of this encounter Visit Diagnoses Diagnosis Keratosis Actinic- Primary Nevi Multiple Keratosis Seborrheic documented in this encounter Care Teams Capacity Manager Relationship Specialty Start Date End Date Unassigned, Pcp PCP - General Family Medicine 01/07/21 documented as of this encounter
--- OUTSIDE RECORDS SUMMARY | 2023-05-26 06:44 | XMS_ITS | Encounter Summary ---
Author Name Unknown Organization [facility] Address [address] [place] [address] Care Team Providers Care Hem Inspector Name Role Phone Unassigned, Pcp Primary Care Provider Unavailabl e Reason for Visit * Reason Onset Date Comments appt questions 06/21/2022 Encounter Details Date Type Department Care Team (Latest Contact Info) Description 06/21/2022 Clinical Communication Department of Dermatology in [address] [phone] Unassigned, Pcp appt questions Social [...] often do you attend chur ch or yazidism services? More than 4 times per year 06/09/2022 Do you belong to any clubs o r organizations such as methodist groups, unions, fraternal or athletic groups, or [...] and heating? Not hard at all 06/09/2022 [facility] [place] of Occupat ional Health - Occupational Stress [...] Sex Assigned at Female 05/20/2021 9:04 AM SUB ARC OPERATOR Gender Identity Female 05/20/2021 9:04 AM SUB ARC OPERATOR Sexual Orientation Straight 05/20/2021 9: 04 AM SUB ARC OPERATOR documented as of this encounter Plan of Treatment Upcoming Encounters Date Type Department Care Team (Late st Contact Info) Description 08/30/2023 4:00 PM CDT Office Visit Department of Dermatology in [address] [phone] Annabel Jarrell M.D. [address] [place] [phone] Discharge Disposition: Home or Self Care documented as of this encounter Visit Diagnoses Not on filedocumented in this encounter Care Teams Hem Inspector Relationship Specialty Start Date End Date Unassigned, Pcp PCP - General Family Medicine 01/07/21 documented as of this encounter
--- OUTSIDE RECORDS SUMMARY | 2023-05-26 06:44 | XMS_ITS | Encounter Summary ---
Author Name Unknown Organization [facility] Address [address] [place] [address] Care Team Providers Care Book Binder Name Role Phone Unassigned, Pcp Primary Care Provider Unavailabl e Encounter Details Date Type Department Care Team ([facility] st Contact Info) Description 06/21/2022 Clinical Communication Department of Dermatology in [place], [place] [address] [place] [address] Annabel Jarrell M.D. [address] [place] [address] Social History Tobacco Use Types Packs/Day Years [...] often do you attend chur ch or episcopal services? More than 4 times per year 06/09/2022 Do you belong to any clubs o r organizations such as sabianism groups, unions, fraternal or athletic groups, or [...] and heating? Not hard at all 06/09/2022 [facility] of Occupat ional Health - Occupational Stress [...] Sex Assigned at Female 05/20/2021 9:04 AM DROP WIRE HANGER Gender Identity Female 05/20/2021 9:04 AM DROP WIRE HANGER Sexual Orientation Straight 05/20/2021 9: 04 AM DROP WIRE HANGER documented as of this encounter Miscellaneous Notes * Telephone Encounter - Glory Murray R.N. - 06/21/2022 9:15 AM DROP WIRE HANGER Allergy has been removed from her chart. WIRE HANGER documented in this encounter Plan of Treatment Upcoming Encounters Date Type Department Care Team (Late st Contact Info) Description 08/30/2023 4:00 PM CDT Office Visit Department of Dermatology in [address] [place] [address] Annabel Jarrell M.D. [address] [place] [address] Discharge Disposition: Home or Self Care documented as of this encounter Visit Diagnoses Not on filedocumented in this encounter Care Teams Book Binder Relationship Specialty Start Date End Date Unassigned, Pcp PCP - General Family Medicine 01/07/21 documented as of this encounter
--- OUTSIDE RECORDS SUMMARY | 2023-05-26 06:44 | XMS_ITS | Encounter Summary ---
Author Name Unknown Organization [facility] Address [address] [place] [address] Care Team Providers Care Globe Changer Name Role Phone Unassigned, Pcp Primary Care Provider Unavailabl e Reason for Referral * Outpatient (Routine) - Closed Specialty Diagnoses / Procedures Referred By Contac t Referred To Contact Dermatology Diagnoses Tumor Skin Uncertain Behavior Procedures Dermatology misc minor procedure Annabel Jarrell M.D. 200 [place] [address] [facility] Referral ID Status Reason Start Date Expiration Date Visits Re quested Visits Authorized [id number] Closed 06/14/2022 06/14/2023 1 1 PUNCHER Encounter Details Date Type Department Care Team (Late st Contact Info) Description 06/14/2022 Orders Only Department of Dermatology in [place], [place] [address] [place] [phone] Annabel Jarrell M.D. [address] [place] [phone] Tumor Skin Uncertain Behavior (Primary Dx) Social [...] How often do you attend chur or taoism services? More than 4 times per year 06/09/2022 Do you belong to any clubs o r organizations such as catholic groups, unions, fraternal or athletic groups, or [...] and heating? Not hard at all 06/09/2022 [facility] [place] of Occupat ional Health - Occupational Stress [...] Sex Assigned at Female 05/20/2021 9:04 AM TOE PUNCHER Gender Identity Female 05/20/2021 9:04 AM TOE PUNCHER Sexual Orientation Straight 05/20/2021 9: 04 AM TOE PUNCHER documented as of this encounter Plan of Treatment Upcoming Encounters Date Type Department Care Team (Late st Contact Info) Description 08/30/2023 4:00 PM CDT Office Visit Department of Dermatology in [address] [phone] Annabel Jarrell M.D. [address] [place] [address] Discharge Disposition: Home or Self Care Scheduled Orders Name Type Priority Associated Diagnoses Orde r Schedule Dermatology misc minor procedure Dermatology Routine Tumor Skin Uncertain Behavior Expected: 08/03/2022, Expires: 09/12/2023 documented as of this encounter Visit Diagnoses Diagnosis Tumor Skin Uncertain Behavior- Primary documented in this encounter Care Teams Globe Changer Relationship Specialty Start Date End Date Unassigned, Pcp PCP - General Family Medicine 01/07/21 documented as of this encounter
--- OUTSIDE RECORDS SUMMARY | 2023-05-26 06:44 | XMS_ITS | Encounter Summary ---
Author Name Unknown Organization [facility] Address [address] [place] [address] Care Team Providers Care Industrial Welder Name Role Phone Unassigned, Pcp Primary Care [...] week 06/09/2022 How often do you attend [facility] or confucianist services? More than 4 times per year [...] and heating? Not hard at all 06/09/2022 [facility] of Occupat ional Health - Occupational [...] place to sleep or slept in a correction (including now)? No 06/09/2022 Nutrition Answer Date [...] Assigned at Female 05/20/2021 9:04 AM ASSISTANT DIRECTOR OF PLANT OPERATIONS Gender Identity Female 05/20/2021 9:04 AM ASSISTANT DIRECTOR OF PLANT OPERATIONS Sexual Orientation Straight 05/20/2021 9: 04 AM ASSISTANT DIRECTOR OF PLANT OPERATIONS documented as of this encounter Plan of Treatment Upcoming Encounters Date Type Department Care Team (Late st Contact Info) Description 08/30/2023 4:00 PM CDT Office Visit Department of Dermatology in [address] [phone] Annabel Jarrell M.D. [address] [place] [phone] Discharge Disposition: Home or Self Care documented [...] on filedocumented in this encounter Care Teams Industrial Welder Relationship Specialty Start Date End Date Unassigned, Pcp PCP - General Family Medicine 01/07/21 documented as of this encounter
--- OUTSIDE RECORDS SUMMARY | 2023-05-26 06:44 | XMS_ITS | Encounter Summary ---
Author Name Unknown Organization [facility] Address [address] [place] [address] Care Team Providers Care Pot Puller Name Role Phone Unassigned, Pcp Primary Care [...] you attend [facility] or yarsani services? More than 4 times per year [...] and heating? Not hard at all 06/09/2022 [facility] of Occupat ional Health - Occupational Stress [...] place to sleep or slept in a mcc (including now)? No 06/09/2022 Nutrition Answer Date [...] Sex Assigned at Female 05/20/2021 9:04 AM ENGINEER Gender Identity Female 05/20/2021 9:04 AM ENGINEER Sexual Orientation Straight 05/20/2021 9: 04 AM ENGINEER documented as of this encounter Plan of Treatment Upcoming Encounters Date Type Department Care Team (Late st Contact Info) Description 08/30/2023 4:00 PM CDT Office Visit Department of Dermatology in [address] [phone] Annabel Jarrell M.D. [address] [place] [phone] Discharge Disposition: Home or Self Care documented [...] on filedocumented in this encounter Care Teams Pot Puller Relationship Specialty Start Date End Date Unassigned, Pcp PCP - General Family Medicine 01/07/21 documented as of this encounter
--- OUTSIDE RECORDS SUMMARY | 2023-05-26 06:44 | XMS_ITS | Encounter Summary ---
Author Name Unknown Organization [facility] Address [address] [place] [address] Care Team Providers Care Color Checker Roving Or Yarn Name Role Phone Unassigned, Pcp Primary Care Provider Unavailabl e Reason for Visit * Reason Comments Skin Check * Appointment Request (Routine) - Closed Specialty Diagnoses / Procedures Referred By Carroll mendez Referred To Contact Dermatology Referral ID Status Reason Start Date Expiration Date Visits Re quested Visits Authorized [id number] Closed 08/31/2022 08/31/2023 1 1 Encounter Details Date Type Department Care Team (Late st Contact Info) Description 01/18/2023 2:00 PM CDT Office Visit Department of Dermatology in [address] [phone] Annabel Jarrell M.D. 200 [place] [address] Keratosis Actinic (Primary Dx); Nevi Multiple; Keratosis [...] week 06/09/2022 How often do you attend [facility] or orthodoxy services? More than 4 times [...] and heating? Not hard at all 06/09/2022 [facility] of Occupat ional Health - Occupational Stress [...] Sex Assigned at Female 05/20/2021 9:04 AM ASSIGNMENT EDITOR Gender Identity Female 05/20/2021 9:04 AM ASSIGNMENT EDITOR Sexual Orientation Straight 05/20/2021 9: 04 AM ASSIGNMENT EDITOR documented as of this encounter Progress Notes [...] Mohs surgery on 09/21/[address] Pinzon [facility]. She denies a personal or family history for melanoma. Her mother and father have had non-melanoma skin cancers. She uses sunscreen. She reports some dryness and scaling involving the scalp that she would like evaluated today. MEDICAL HISTORY 1. Right upper forehead: History of nodular basal cell carcinoma, status post Mohs surgery on 09/21/[address] Pinzon at [facility] 2. Negative for melanoma 3. History [...] extremities. My scribe (Shannan) served as a spindraw operator for the entirety of the exam. Examination [...] surgery on 09/21/[address] Pinzon at [facility], no recurrence No clinical evidence of [...] CDT Office Visit Department of Dermatology in [address] [phone] Annabel Jarrell M.D. [address] [place] [address] Discharge Disposition: Home or Self Care documented as of this encounter Visit Diagnoses Diagnosis Keratosis Actinic- Primary Nevi Multiple Keratosis Seborrheic Cancer Skin Basal Cell Personal History documented in this encounter Care Teams Color Checker Roving Or Yarn Relationship Specialty Start Date End Date Unassigned, Pcp PCP - General Family Medicine 01/07/21 documented as of this encounter
--- OUTSIDE RECORDS SUMMARY | 2023-05-26 06:44 | XMS_ITS | Encounter Summary ---
Author Name Unknown Organization [facility] Address [address] [place] [address] Care Team Providers Care Webmaster Name Role Phone Unassigned, Pcp Primary Care Provider Unavailabl e Encounter Details Date Type Department Care Team (Late st Contact Info) Description 06/14/2022 2:15 PM WARP DOFFER Ancillary Procedure Department of Dermatology Social History [...] How often do you attend [facility] or roman catholic services? More than 4 times per year 06/09/2022 Do you belong to any clubs o r organizations such as gnosticist groups, unions, fraternal or athletic groups, or [...] and heating? Not hard at all 06/09/2022 [facility] of Occupat ional Health - Occupational [...] place to sleep or slept in a nursing home (including now)? No 06/09/2022 Nutrition Answer Date [...] Sex Assigned at Female 05/20/2021 9:04 AM WARP DOFFER Gender Identity Female 05/20/2021 9:04 AM WARP DOFFER Sexual Orientation Straight 05/20/2021 9: 04 AM WARP DOFFER documented as of this encounter Plan of Treatment Upcoming Encounters Date Type Department Care Team (Late st Contact Info) Description 08/30/2023 4:00 PM CDT Office Visit Department of Dermatology in [address] [phone] Annabel Jarrell M.D. [address] [place] [phone] Discharge Disposition: Home or Self Care documented as of this encounter Procedures Procedure Name Priority Date/Time Associated Diagnosis Comments DERMATOLOGY IMAGE EXAM Routine 06/14/2022 2:09 PM WARP DOFFER documented in this encounter Results * Nose 510-Dermatology Image Exam (06/14/2022 2:09 PM WARP DOFFER) 06/14/2022 2:06 PM WARP DOFFER Narrative IIMS - 06/14/2022 2:09 PM WARP DOFFER This order has been created and auto-finalized to support the import of images acquired without order. The clinical documentation to support these images can be found on the encounter that produced images. Provider Not In System IMG NON RAD IMAGI NG PROCEDURES IIMS NA documented in this encounter Visit Diagnoses Not on filedocumented in this encounter Care Teams Webmaster Relationship Specialty Start Date End Date Unassigned, Pcp PCP - General Family Medicine 01/07/21 documented as of this encounter
--- OUTSIDE RECORDS SUMMARY | 2023-05-26 06:44 | XMS_ITS | Encounter Summary ---
Author Name Unknown Organization [facility] Address [address] [place] [address] Care Team Providers Care Operations Project Manager Name Role Phone Unassigned, Pcp Primary Care Provider Unavailabl e Encounter Details Date Type Department Care Team (Late st Contact Info) Description 06/14/2022 2:10 PM DANCE HISTORIAN Ancillary Procedure Department of Dermatology Social History [...] you attend [facility] or anglican services? More than 4 times per year 06/09/2022 Do you belong to any clubs o r organizations such as protestant groups, unions, fraternal or athletic groups, or [...] and heating? Not hard at all 06/09/2022 [facility] of Occupat ional Health - Occupational [...] place to sleep or slept in a care home (including now)? No 06/09/2022 Nutrition Answer [...] Sex Assigned at Female 05/20/2021 9:04 AM DANCE HISTORIAN Gender Identity Female 05/20/2021 9:04 AM DANCE HISTORIAN Sexual Orientation Straight 05/20/2021 9: 04 AM DANCE HISTORIAN documented as of this encounter Plan of Treatment Upcoming Encounters Date Type Department Care Team (Late st Contact Info) Description 08/30/2023 4:00 PM CDT Office Visit Department of Dermatology in [address] [phone] Annabel Jarrell M.D. [address] [place] [phone] Discharge Disposition: Home or Self Care documented as of this encounter Procedures Procedure Name Priority Date/Time Associated Diagnosis Comments DERMATOLOGY IMAGE EXAM Routine 06/14/2022 2:09 PM DANCE HISTORIAN documented in this encounter Results * cheek, right jawline 38-Dermatology Image Exam (06/14/2022 2:09 PM DANCE HISTORIAN) 06/14/2022 2:06 PM DANCE HISTORIAN Narrative IIMS - 06/14/2022 2:09 PM DANCE HISTORIAN This order has been created and auto-finalized to support the import of images acquired without order. The clinical documentation to support these images can be found on the encounter that produced images. Provider Not In System IMG NON RAD IMAGI NG PROCEDURES IIMS NA documented in this encounter Visit Diagnoses Not on filedocumented in this encounter Care Teams Operations Project Manager Relationship Specialty Start Date End Date Unassigned, Pcp PCP - General Family Medicine 01/07/21 documented as of this encounter
--- OUTSIDE RECORDS SUMMARY | 2023-05-26 06:44 | XMS_ITS ---
Author Name Unknown Organization [facility] Address [address] [place] [address] Care Team Providers Care Bank Operations Officer Name Role Phone Unavailable Unavailable Unavailable Surgery Details Not on file Complications Check Surgery Details section. Procedure Estimated Blood Loss Check Surgery Details section. Procedure Findings Check Surgery Details section. Procedure Specimens Taken Check Surgery Details section.
--- OUTSIDE RECORDS SUMMARY | 2023-05-26 06:44 | XMS_ITS | Encounter Summary ---
Author Name Unknown Organization [facility] Address [address] [place] [address] Care Team Providers Care Circuit Court Clerk Name Role Phone Unassigned, Pcp Primary Care [...] week 06/09/2022 How often do you attend [facility] or anabaptism services? More than 4 times per year [...] and heating? Not hard at all 06/09/2022 [facility] of Occupat ional Health - Occupational [...] Sex Assigned at Female 05/20/2021 9:04 AM CLINICAL PSYCHOLOGY PROFESSOR Gender Identity Female 05/20/2021 9:04 AM CLINICAL PSYCHOLOGY PROFESSOR Sexual Orientation Straight 05/20/2021 9: 04 AM CLINICAL PSYCHOLOGY PROFESSOR documented as of this encounter Plan of Treatment Upcoming Encounters Date Type Department Care Team (Late st Contact Info) Description 08/30/2023 4:00 PM CDT Office Visit Department of Dermatology in [address] [phone] Annabel Jarrell M.D. [address] [place] [phone] Discharge Disposition: Home or Self Care documented [...] on filedocumented in this encounter Care Teams Circuit Court Clerk Relationship Specialty Start Date End Date Unassigned, Pcp PCP - General Family Medicine 01/07/21 documented as of this encounter
--- OUTSIDE RECORDS SUMMARY | 2023-05-26 06:44 | XMS_ITS | Encounter Summary ---
Author Name Unknown Organization [facility] Address [address] [place] [address] Care Team Providers Care Word Processing Specialist Name Role Phone Unassigned, Pcp Primary Care Provider Unavailabl e Reason for Visit * Reason Comments Med Refill Encounter Details Date Type Department Care Team (Late st Contact Info) Description 06/02/2022 Refill Division of Endocrinology in [place], [place] [address] [place] [phone] Brian Spear M.D., Ph.D. [address] [place] [phone] Med Refill Social History Tobacco Use Types [...] often do you attend chur ch or scientologist services? More than 4 times per year 11/16/2021 Do you belong to any clubs o r organizations such as anabaptist groups, unions, fraternal or athletic groups, or [...] and heating? Not hard at all 11/16/2021 [facility] of Occupat ional Health - [...] slept in a snf (including now)? No 11/16/2021 Nutrition Answer Date [...] Sex Assigned at Female 05/20/2021 9:04 AM SNOW SHOVELER Gender Identity Female 05/20/2021 9:04 AM SNOW SHOVELER Sexual Orientation Straight 05/20/2021 9: 04 AM SNOW SHOVELER documented as of this encounter Plan of Treatment Upcoming Encounters Date Type Department Care Team (Late st Contact Info) Description 08/30/2023 4:00 PM CDT Office Visit Department of Dermatology in [address] [phone] Annabel Jarrell M.D. [address] [place] [address] Discharge Disposition: Home or Self Care documented as of this encounter Visit Diagnoses Not on filedocumented in this encounter Care Teams Word Processing Specialist Relationship Specialty Start Date End Date Unassigned, Pcp PCP - General Family Medicine 01/07/21 documented as of this encounter
== END 2023-05-25 09:31 | disposition home or self-care (01) ==
LOC: NFLDREF 05-26 06:42
PROVIDERS: PCP Family Medicine; Referring Provider Family Medicine; Visit Provider Family Medicine
DX: R19.5 Other fecal abnormalities (principal)
CPT/HCPCS: 87329; 87493

== ENCOUNTER 2023-06-01 13:10 | Outpatient (CLI) | payer MEDICARE, OTHER, SELFPAY ==
--- OUTSIDE RECORDS SUMMARY | 2023-06-01 13:15 | XMS_ITS | Clinical Summary ---
Author Name Unknown Organization [facility] Address [place], [place] [address] Care Team Providers Care Sex Worker Or Escort Name Role Phone Allen Johnson MD Primary Care Provider Social History Tobacco Use Types Packs/Day Years Used Date Smoking Tobacco: Never Assessed Sex and Gender Information Value Date Recorded Sex Assigned at Not on file Gender Identity Not on file Sexual Orientation Not on file Last Filed Vital Signs Vital Sign Reading Time Taken Comments Blood Pressure 135/85 03/07/2007 2:27 PM PROFESSOR OF GEOLOGY Pulse 66 03/07/2007 2:27 PM PROFESSOR OF GEOLOGY Temperature - - Respiratory Rate - - Oxygen Saturation 100% 03/07/2007 2:27 PM PROFESSOR OF GEOLOGY Inhaled Oxygen Concentration - - Weight 69.5 kg (153 lb 3.2 oz) 03/07/2007 2:27 P M PROFESSOR OF GEOLOGY Height - - Body Mass Index - [...] Influenza for age 65+ 12/24/2022 Care Teams Sex Worker Or Escort Relationship Specialty Start Date End Date Allen Johnson MD [address] [place] [id number] PCP - General 03/07/07
--- OUTSIDE RECORDS SUMMARY | 2023-06-01 13:15 | XMS_ITS | Encounter Summary ---
Author Name Unknown Organization [facility] Address [address] [place] [address] Care Team Providers Care Music Instructor Name Role Phone Unassigned, Pcp Primary Care Provider Unavailabl e Reason for Visit * Reason Comments Biopsy * Outpatient (Routine) - Closed Specialty Diagnoses / Procedures Referred By Carroll t Referred To Contact Dermatology Diagnoses Tumor Skin Uncertain Behavior Procedures Dermatology misc minor procedure Annabel Jarrell M.D. 200 [place] [phone] [facility] Referral ID Status Reason Start Date Expiration Date Visits Re quested Visits Authorized [id number] Closed 06/14/2022 06/14/2023 1 1 Encounter Details Date Type Department Care Team (Latest Contact Info) Description 08/31/2022 10:15 AM CDT Procedure visit Department of Dermatology in [address] [phone] Annabel Jarrell M.D. 200 [place] [phone] Keratosis Seborrheic (Primary Dx); Tumor Skin Uncertain [...] How often do you attend chur or orthodox services? More than 4 times per year [...] and heating? Not hard at all 06/09/2022 [facility] of Occupat ional Health - Occupational Stress [...] Sex Assigned at Female 05/20/2021 9:04 AM FLOW MATCH SOFA CUTTER Gender Identity Female 05/20/2021 9:04 AM FLOW MATCH SOFA CUTTER Sexual Orientation Straight 05/20/2021 9: 04 AM FLOW MATCH SOFA CUTTER documented as of this encounter Progress Notes [...] on 09/21/[address] Pinzon at [facility]. She denies a personal or family [...] on 09/21/[address] Pinzon at [facility] 2. Negative for melanoma 3. History [...] the patient by letter. Patient given pamphlet TO8154. Discussed the risks, benefits, alternatives, and the [...] By signing my name below, I, Shannan Beckwiht, attest that this documentation has been prepared [...] CDT Right preauricular area: Benign lesion letter [facility] patient. Please send letter documented in this encounter Plan of Treatment Upcoming Encounters Date Type Department Care Team (Late st Contact Info) Description 08/30/2023 4:00 PM CDT Office Visit Department of Dermatology in [address] [phone] Annabel Jarrell M.D. [address] [place] [phone] Discharge Disposition: Home or Self Care documented [...] Jarrell M.D. LAB PATH DERM ORDERA [facility] [address] [place] [address], [facility] ECLR [address] [place] [phone] documented in this encounter Visit Diagnoses Diagnosis Keratosis Seborrheic- Primary Tumor Skin Uncertain Behavior documented in this encounter Care Teams Music Instructor Relationship Specialty Start Date End Date Unassigned, Pcp PCP - General Family Medicine 01/07/21 documented as of this encounter
--- OUTSIDE RECORDS SUMMARY | 2023-06-01 13:15 | XMS_ITS | Encounter Summary ---
Author Name Unknown Organization [facility] Address [address] [place] [address] Care Team Providers Care Group Exercise Class Instructor Name Role Phone Unassigned, Pcp Primary Care Provider Unavailabl e Encounter Details Date Type Department Care Team ([facility] st Contact Info) Description 06/21/2022 Clinical Communication Department of Dermatology in [place], [place] [address] [place] [address] Annabel Jarrell M.D. [address] [place] [address] Social History Tobacco Use Types Packs/Day Years [...] often do you attend chur ch or mormon services? More than 4 times per year 06/09/2022 Do you belong to any clubs o r organizations such as holiness groups, unions, fraternal or athletic groups, or [...] heating? Not hard at all 06/09/2022 [facility] of Occupat ional Health - Occupational Stress [...] Sex Assigned at Female 05/20/2021 9:04 AM HARD ROCK DRILL OPERATOR Gender Identity Female 05/20/2021 9:04 AM HARD ROCK DRILL OPERATOR Sexual Orientation Straight 05/20/2021 9: 04 AM HARD ROCK DRILL OPERATOR documented as of this encounter Miscellaneous Notes * Telephone Encounter - Glory Murray R.N. - 06/21/2022 9:15 AM HARD ROCK DRILL OPERATOR Allergy has been removed from her chart. ROCK DRILL OPERATOR documented in this encounter Plan of Treatment Upcoming Encounters Date Type Department Care Team (Late st Contact Info) Description 08/30/2023 4:00 PM CDT Office Visit Department of Dermatology in [address] [place] [address] Annabel Jarrell M.D. [address] [place] [address] Discharge Disposition: Home or Self Care documented as of this encounter Visit Diagnoses Not on filedocumented in this encounter Care Teams Group Exercise Class Instructor Relationship Specialty Start Date End Date Unassigned, Pcp PCP - General Family Medicine 01/07/21 documented as of this encounter
--- OUTSIDE RECORDS SUMMARY | 2023-06-01 13:15 | XMS_ITS | Referral Summary ---
Author Name Unknown Organization [facility] Address [address] [place] [address] Care Team Providers Care Field Support Engineer Name Role Phone Unassigned, Pcp Primary Care Provider Unavailabl e Source Comments Patient records contain information from all sites at [facility]. For routine questions regarding patient records, call [phone] during business hours, M-F 8:00 AM - 5:00 PM Central Time. Record requests for emergency care only can be directed to [phone] at any time.[facility] Allergies Active Allergy Reactions Criticality Noted [...] often do you attend chur ch or denominational services? More than 4 times per year 06/09/2022 Do you belong to any clubs o r organizations such as anglican groups, unions, fraternal or athletic groups, or [...] and heating? Not hard at all 06/09/2022 [facility] [place] of Occupat ional Health - Occupational [...] place to sleep or slept in a jail (including now)? No 06/09/2022 Nutrition Answer Date [...] Sex Assigned at Female 05/20/2021 9:04 AM PUBLIC RELATIONS PROFESSIONAL Gender Identity Female 05/20/2021 9:04 AM PUBLIC RELATIONS PROFESSIONAL Sexual Orientation Straight 05/20/2021 9: 04 AM PUBLIC RELATIONS PROFESSIONAL Last Filed Vital Signs Vital Sign Reading [...] Office Visit Department of Dermatology in [address] [phone] Annabel Jarrell M.D. [address] [place] [phone] Discharge Disposition: Home or Self Care Care Teams Field Support Engineer Relationship Specialty Start Date End Date Unassigned, Pcp PCP - General Family Medicine 01/07/21
--- OUTSIDE RECORDS SUMMARY | 2023-06-01 13:15 | XMS_ITS | Encounter Summary ---
Author Name Unknown Organization [facility] Address [address] [place] [address] Care Team Providers Care Social Service Technician Name Role Phone Unassigned, Pcp Primary Care Provider Unavailabl e Reason for Visit * Reason Comments Skin Check * Appointment Request (Routine) - Closed Specialty Diagnoses / Procedures Referred By Carroll mendez Referred To Contact Dermatology Referral ID Status Reason Start Date Expiration Date Visits Re quested Visits Authorized [id number] Closed 08/31/2022 08/31/2023 1 1 Encounter Details Date Type Department Care Team (Late st Contact Info) Description 01/18/2023 2:00 PM CDT Office Visit Department of Dermatology in [address] [phone] Annabel Jarrell M.D. 200 [place] [address] Keratosis Actinic (Primary Dx); Nevi Multiple; Keratosis [...] you attend [facility] or yazidi services? More than 4 times per year 06/09/2022 Do you belong to any clubs o r organizations such as mormonism groups, unions, fraternal or athletic groups, or [...] and heating? Not hard at all 06/09/2022 [facility] of Occupat ional Health - Occupational Stress [...] Sex Assigned at Female 05/20/2021 9:04 AM RECEPTION INTERVIEWER Gender Identity Female 05/20/2021 9:04 AM RECEPTION INTERVIEWER Sexual Orientation Straight 05/20/2021 9: 04 AM RECEPTION INTERVIEWER documented as of this encounter Progress Notes [...] Mohs surgery on 09/21/[address] Pinzon [facility]. She denies a personal or family history for melanoma. Her mother and father have had non-melanoma skin cancers. She uses sunscreen. She reports some dryness and scaling involving the scalp that she would like evaluated today. MEDICAL HISTORY 1. Right upper forehead: History of nodular basal cell carcinoma, status post Mohs surgery on 09/21/[address] Pinzon at [facility] 2. Negative for melanoma 3. History [...] extremities. My scribe (Shannan) served as a knitting machine mechanic for the entirety of the exam. Examination [...] surgery on 09/21/[address] Pinzon at [facility], no recurrence No clinical evidence of [...] CDT Office Visit Department of Dermatology in [address] [phone] Annabel Jarrell M.D. [address] [place] [address] Discharge Disposition: Home or Self Care documented as of this encounter Visit Diagnoses Diagnosis Keratosis Actinic- Primary Nevi Multiple Keratosis Seborrheic Cancer Skin Basal Cell Personal History documented in this encounter Care Teams Social Service Technician Relationship Specialty Start Date End Date Unassigned, Pcp PCP - General Family Medicine 01/07/21 documented as of this encounter
--- OUTSIDE RECORDS SUMMARY | 2023-06-01 13:15 | XMS_ITS | Encounter Summary ---
Author Name Unknown Organization [facility] Address [address] [place] [address] Care Team Providers Care Yard Loader Operator Name Role Phone Unassigned, Pcp Primary [...] week 06/09/2022 [facility] or yazdanism services? More than 4 times per year 06/09/2022 Do you belong to any clubs o r organizations such as mormon groups, unions, fraternal or athletic groups, or [...] and heating? Not hard at all 06/09/2022 [facility] of Occupat ional Health - Occupational Stress [...] place to sleep or slept in a prison (including now)? No 06/09/2022 Nutrition Answer Date [...] Sex Assigned at Female 05/20/2021 9:04 AM FOLDER INSPECTOR Gender Identity Female 05/20/2021 9:04 AM FOLDER INSPECTOR Sexual Orientation Straight 05/20/2021 9: 04 AM FOLDER INSPECTOR documented as of this encounter Plan of Treatment Upcoming Encounters Date Type Department Care Team (Late st Contact Info) Description 08/30/2023 4:00 PM CDT Office Visit Department of Dermatology in [address] [phone] Annabel Jarrell M.D. [address] [place] [phone] Discharge Disposition: Home or Self Care documented [...] on filedocumented in this encounter Care Teams Yard Loader Operator Relationship Specialty Start Date End Date Unassigned, Pcp PCP - General Family Medicine 01/07/21 documented as of this encounter
--- OUTSIDE RECORDS SUMMARY | 2023-06-01 13:15 | XMS_ITS | Encounter Summary ---
Author Name Unknown Organization [facility] Address [address] [place] [address] Care Team Providers Care Carbon Plant Grinder Name Role Phone Unassigned, Pcp Primary [...] week 06/09/2022 How often do you attend [facility] or muslim services? More than 4 times per year 06/09/2022 Do you belong to any clubs o r organizations such as buddhist groups, unions, fraternal or athletic groups, or [...] and heating? Not hard at all 06/09/2022 [facility] of Occupat ional Health [...] Sex Assigned at Female 05/20/2021 9:04 AM MAINTENANCE PLANNER Gender Identity Female 05/20/2021 9:04 AM MAINTENANCE PLANNER Sexual Orientation Straight 05/20/2021 9: 04 AM MAINTENANCE PLANNER documented as of this encounter Plan of Treatment Upcoming Encounters Date Type Department Care Team (Late st Contact Info) Description 08/30/2023 4:00 PM CDT Office Visit Department of Dermatology in [address] [phone] Annabel Jarerll M.D. [address] [place] [phone] Discharge Disposition: Home or Self Care documented [...] on filedocumented in this encounter Care Teams Carbon Plant Grinder Relationship Specialty Start Date End Date Unassigned, Pcp PCP - General Family Medicine 01/07/21 documented as of this encounter
--- OUTSIDE RECORDS SUMMARY | 2023-06-01 13:15 | XMS_ITS ---
Author Name Unknown Organization [facility] Address [address] [place] [address] Care Team Providers Care Aircraft Instrument Repairer Name Role Phone Unavailable Unavailable Unavailable Surgery Details Not on file Complications Check Surgery Details section. Procedure Estimated Blood Loss Check Surgery Details section. Procedure Findings Check Surgery Details section. Procedure Specimens Taken Check Surgery Details section.
--- OUTSIDE RECORDS SUMMARY | 2023-06-01 13:15 | XMS_ITS | Encounter Summary ---
Author Name Unknown Organization [facility] Address [address] [place] [address] Care Team Providers Care Candy Bar Attendant Name Role Phone Unassigned, Pcp Primary Care [...] week 06/09/2022 How often do you attend [facility] or nondenominational services? More than 4 times per year [...] and heating? Not hard at all 06/09/2022 [facility] of Occupat ional Health [...] Sex Assigned at Female 05/20/2021 9:04 AM ENERGY DIRECTOR Gender Identity Female 05/20/2021 9:04 AM ENERGY DIRECTOR Sexual Orientation Straight 05/20/2021 9: 04 AM ENERGY DIRECTOR documented as of this encounter Plan of Treatment Upcoming Encounters Date Type Department Care Team (Late st Contact Info) Description 08/30/2023 4:00 PM CDT Office Visit Department of Dermatology in [address] [phone] Annabel Jarrell M.D. [address] [place] [phone] Discharge Disposition: Home or Self Care documented [...] on filedocumented in this encounter Care Teams Candy Bar Attendant Relationship Specialty Start Date End Date Unassigned, Pcp PCP - General Family Medicine 01/07/21 documented as of this encounter
--- OUTSIDE RECORDS SUMMARY | 2023-06-01 13:15 | XMS_ITS | Clinical Summary ---
Author Name Unknown Organization [facility] Address [address] [place] [address] Care Team Providers Care Research Intern Name Role Phone Unassigned, Pcp Primary Care Provider Unavailabl e Source Comments Patient records contain information from all sites at [facility]. For routine questions regarding patient records, call [phone] during business hours, M-F 8:00 AM - 5:00 PM Central Time. Record requests for emergency care only can be directed to [phone] at any time.[facility] Allergies Active Allergy Reactions Criticality Noted [...] How often do you attend chur or bahai services? More than 4 times per year [...] Sex Assigned at Female 05/20/2021 9:04 AM HRIS SPECIALIST Gender Identity Female 05/20/2021 9:04 AM HRIS SPECIALIST Sexual Orientation Straight 05/20/2021 9: 04 AM HRIS SPECIALIST Last Filed Vital Signs Vital Sign Reading [...] Office Visit Department of Dermatology in [address] [phone] Annabel Jarrell M.D. [address] [place] [address] Discharge Disposition: Home or Self Care Health [...] , 01/22/2021, Additional history exists Care Teams Research Intern Relationship Specialty Start Date End Date Unassigned, Pcp PCP - General Family Medicine 01/07/21
--- OUTSIDE RECORDS SUMMARY | 2023-06-01 13:15 | XMS_ITS | Encounter Summary ---
Author Name Unknown Organization [facility] Address [address] [place] [address] Care Team Providers Care Manager Bilingual Name Role Phone Unassigned, Pcp Primary Care Provider Unavailabl e Reason for Visit * Reason Onset Date Comments appt questions 06/21/2022 Encounter Details Date Type Department Care Team (Latest Contact Info) Description 06/21/2022 Clinical Communication Department of Dermatology in [address] [phone] Unassigned, Pcp appt questions Social [...] often do you attend chur ch or muslim services? More than 4 times [...] and heating? Not hard at all 06/09/2022 [facility] of Occupat ional Health - Occupational Stress [...] place to sleep or slept in a fdc (including now)? No 06/09/2022 Nutrition Answer Date [...] Sex Assigned at Female 05/20/2021 9:04 AM LOGGING ASSISTANT Gender Identity Female 05/20/2021 9:04 AM LOGGING ASSISTANT Sexual Orientation Straight 05/20/2021 9: 04 AM LOGGING ASSISTANT documented as of this encounter Plan of Treatment Upcoming Encounters Date Type Department Care Team (Late st Contact Info) Description 08/30/2023 4:00 PM CDT Office Visit Department of Dermatology in [address] [phone] Annabel Jarrell M.D. [address] [place] [phone] Discharge Disposition: Home or Self Care documented as of this encounter Visit Diagnoses Not on filedocumented in this encounter Care Teams Manager Bilingual Relationship Specialty Start Date End Date Unassigned, Pcp PCP - General Family Medicine 01/07/21 documented as of this encounter
--- OUTSIDE RECORDS SUMMARY | 2023-06-01 13:15 | XMS_ITS | Encounter Summary ---
Author Name Unknown Organization [facility] Address [address] [place] [address] Care Team Providers Care Hospice Music Therapist Name Role Phone Unassigned, Pcp Primary [...] 06/09/2022 How often do you attend [facility] or advent services? More than 4 times per year 06/09/2022 Do you belong to any clubs o r organizations such as quaker groups, unions, fraternal or athletic groups, or [...] and heating? Not hard at all 06/09/2022 [facility] of Occupat ional Health - Occupational Stress [...] slept in a detention (including now)? No 06/09/2022 Nutrition Answer Date [...] Sex Assigned at Female 05/20/2021 9:04 AM DIAL PRINTER Gender Identity Female 05/20/2021 9:04 AM DIAL PRINTER Sexual Orientation Straight 05/20/2021 9: 04 AM DIAL PRINTER documented as of this encounter Plan of Treatment Upcoming Encounters Date Type Department Care Team (Late st Contact Info) Description 08/30/2023 4:00 PM CDT Office Visit Department of Dermatology in [address] [phone] Annabel Jarrell M.D. [address] [place] [phone] Discharge Disposition: Home or Self Care documented [...] on filedocumented in this encounter Care Teams Hospice Music Therapist Relationship Specialty Start Date End Date Unassigned, Pcp PCP - General Family Medicine 01/07/21 documented as of this encounter
--- OUTSIDE RECORDS SUMMARY | 2023-06-01 13:16 | XMS_ITS | Encounter Summary ---
Author Name Unknown Organization [facility] Address [address] [place] [address] Care Team Providers Care Special Events Planner Name Role Phone Unassigned, Pcp Primary Care Provider Unavailabl e Reason for Visit * Reason Comments Med Refill Encounter Details Date Type Department Care Team (Late st Contact Info) Description 06/02/2022 Refill Division of Endocrinology in [place], [place] [address] [place] [phone] Brian Spear M.D., Ph.D. [address] [place] [phone] Med Refill Social History Tobacco Use Types [...] often do you attend chur ch or mandaeism services? More than 4 times per year 11/16/2021 Do you belong to any clubs o r organizations such as scientology groups, unions, fraternal or athletic groups, or [...] and heating? Not hard at all 11/16/2021 [facility] of Occupat ional Health - Occupational [...] place to sleep or slept in a penitentiary (including now)? No 11/16/2021 Nutrition Answer Date [...] Sex Assigned at Female 05/20/2021 9:04 AM DIGITAL MEDIA ASSOCIATE Gender Identity Female 05/20/2021 9:04 AM DIGITAL MEDIA ASSOCIATE Sexual Orientation Straight 05/20/2021 9: 04 AM DIGITAL MEDIA ASSOCIATE documented as of this encounter Plan of Treatment Upcoming Encounters Date Type Department Care Team (Late st Contact Info) Description 08/30/2023 4:00 PM CDT Office Visit Department of Dermatology in [address] [phone] Annabel Jarrell M.D. [address] [place] [phone] Discharge Disposition: Home or Self Care documented as of this encounter Visit Diagnoses Not on filedocumented in this encounter Care Teams Special Events Planner Relationship Specialty Start Date End Date Unassigned, Pcp PCP - General Family Medicine 01/07/21 documented as of this encounter
--- OUTSIDE RECORDS SUMMARY | 2023-06-01 13:16 | XMS_ITS | Encounter Summary ---
Author Name Unknown Organization [facility] Address [address] [place] [address] Care Team Providers Care Lead Coater Name Role Phone Unassigned, Pcp Primary Care Provider Unavailabl e Encounter Details Date Type Department Care Team (Late st Contact Info) Description 06/14/2022 2:15 PM COLLECTION SPECIALIST Ancillary Procedure Department of Dermatology Social History [...] week 06/09/2022 How often do you attend [facility] or congregation services? More than 4 times [...] and heating? Not hard at all 06/09/2022 [facility] of Occupat ional Health [...] Sex Assigned at Female 05/20/2021 9:04 AM COLLECTION SPECIALIST Gender Identity Female 05/20/2021 9:04 AM COLLECTION SPECIALIST Sexual Orientation Straight 05/20/2021 9: 04 AM COLLECTION SPECIALIST documented as of this encounter Plan of Treatment Upcoming Encounters Date Type Department Care Team (Late st Contact Info) Description 08/30/2023 4:00 PM CDT Office Visit Department of Dermatology in [address] [phone] Annabel Jarrell M.D. [address] [place] [phone] Discharge Disposition: Home or Self Care documented as of this encounter Procedures Procedure Name Priority Date/Time Associated Diagnosis Comments DERMATOLOGY IMAGE EXAM Routine 06/14/2022 2:09 PM COLLECTION SPECIALIST documented in this encounter Results * Nose 510-Dermatology Image Exam (06/14/2022 2:09 PM COLLECTION SPECIALIST) 06/14/2022 2:06 PM COLLECTION SPECIALIST Narrative IIMS - 06/14/2022 2:09 PM COLLECTION SPECIALIST This order has been created and auto-finalized to support the import of images acquired without order. The clinical documentation to support these images can be found on the encounter that produced images. Provider Not In System IMG NON RAD IMAGI NG PROCEDURES IIMS NA documented in this encounter Visit Diagnoses Not on filedocumented in this encounter Care Teams Lead Coater Relationship Specialty Start Date End Date Unassigned, Pcp PCP - General Family Medicine 01/07/21 documented as of this encounter
--- OUTSIDE RECORDS SUMMARY | 2023-06-01 13:16 | XMS_ITS | Encounter Summary ---
Author Name Unknown Organization [facility] Address [address] [place] [address] Care Team Providers Care Brush Material Preparer Name Role Phone Unassigned, Pcp Primary Care Provider Unavailabl e Reason for Visit * Reason Comments Skin Check * Appointment Request (Routine) - Closed Specialty Diagnoses / Procedures Referred By Carroll mendez Referred To Contact Dermatology Referral ID Status Reason Start Date Expiration Date Visits Re quested Visits Authorized [id number] Closed 03/15/2022 03/15/2023 1 1 Encounter Details Date Type Department Care Team (Late st Contact Info) Description 06/14/2022 1:30 PM STRINGED INSTRUMENT ASSEMBLER Office Visit Department of Dermatology in [address] [phone] Annabel Jarrell M.D. [address] [place] [phone] Keratosis Actinic (Primary Dx); Nevi Multiple; Keratosis [...] How often do you attend chur or yazdanism services? More than 4 times [...] and heating? Not hard at all 06/09/2022 [facility] of Occupat ional Health - Occupational Stress [...] Sex Assigned at Female 05/20/2021 9:04 AM STRINGED INSTRUMENT ASSEMBLER Gender Identity Female 05/20/2021 9:04 AM STRINGED INSTRUMENT ASSEMBLER Sexual Orientation Straight 05/20/2021 9: 04 AM STRINGED INSTRUMENT ASSEMBLER documented as of this encounter Progress Notes [...] surgery on 09/21/[address] Pinzon at [facility]. She denies a personal or family history for melanoma. Her mother and father have had non-melanoma skin cancers. She uses sunscreen. She denies any new or changing lesions today. MEDICAL HISTORY 1. Right upper forehead: History of nodular basal cell carcinoma, status post Mohs surgery on 09/21/[address] Pinzon at [facility] 2. Negative for melanoma 3. History of [...] extremities. My scribe (Shannan) served as a field staff for the entirety of the exam. Examination [...] patient is going on a trip to [place] in the near future and I wouldlike [...] surgery on 09/21/[address] Pinzon at [facility], no recurrence No clinical evidence of local [...] Electronically Signed: percy Barrientos. 06/14/2022. 1:43 PM STRINGED INSTRUMENT ASSEMBLER. I, Annabel Jarrell M.D., personally performed the [...] by Shannan Beckwith, on 06/14/2022, 2:34 PM STRINGED INSTRUMENT ASSEMBLER. NGED INSTRUMENT ASSEMBLER documented in this encounter Plan of Treatment Upcoming Encounters Date Type Department Care Team (Late st Contact Info) Description 08/30/2023 4:00 PM CDT Office Visit Department of Dermatology in [address] [phone] Annabel Jarrell M.D. [address] [place] [phone] Discharge Disposition: Home or Self Care documented as of this encounter Visit Diagnoses Diagnosis Keratosis Actinic- Primary Nevi Multiple Keratosis Seborrheic documented in this encounter Care Teams Brush Material Preparer Relationship Specialty Start Date End Date Unassigned, Pcp PCP - General Family Medicine 01/07/21 documented as of this encounter
--- OUTSIDE RECORDS SUMMARY | 2023-06-01 13:16 | XMS_ITS | Encounter Summary ---
Author Name Unknown Organization [facility] Address [address] [place] [address] Care Team Providers Care Bake Room Worker Name Role Phone Unassigned, Pcp Primary Care Provider Unavailabl e Reason for Referral * Outpatient (Routine) - Closed Specialty Diagnoses / Procedures Referred By Contac t Referred To Contact Dermatology Diagnoses Tumor Skin Uncertain Behavior Procedures Dermatology misc minor procedure Annabel Jarrell M.D. [address] [place] [phone] [facility] Referral ID Status Reason Start Date Expiration Date Visits Re quested Visits Authorized [id number] Closed 06/14/2022 06/14/2023 [address] Encounter Details Date Type Department Care Team (Late st Contact Info) Description 06/14/2022 Orders Only Department of Dermatology in [place], [place] [address] [place] [phone] Annabel Jarrell M.D. [address] [place] [phone] Tumor Skin Uncertain Behavior (Primary Dx) Social [...] How often do you attend chur or druze services? More than 4 times per year [...] all 06/09/2022 [facility] of Occupat ional Health - Occupational Stress [...] Sex Assigned at Female 05/20/2021 9:04 AM [address]RI[address] OF THE [address] Gender Identity Female 05/20/2021 9:04 [address]RI[address] OF THE [address] Sexual Orientation Straight 05/20/2021 9: [address]RI[address] THE [address] documented as of this encounter Plan of Treatment Upcoming Encounters Date Type Department Care Team (Late st Contact Info) Description 08/30/2023 4:00 PM CDT Office Visit Department of Dermatology in [address] [phone] Annabel Jarrell M.D. [address] [place] [phone] Discharge Disposition: Home or Self Care Scheduled Orders Name Type Priority Associated Diagnoses Orde r Schedule Dermatology misc minor procedure Dermatology Routine Tumor Skin Uncertain Behavior Expected: 08/03/2022, Expires: 09/12/2023 documented as of this encounter Visit Diagnoses Diagnosis Tumor Skin Uncertain Behavior- Primary documented in this encounter Care Teams Bake Room Worker Relationship Specialty Start Date End Date Unassigned, Pcp PCP - General Family Medicine 01/07/21 documented as of this encounter
--- OUTSIDE RECORDS SUMMARY | 2023-06-01 13:16 | XMS_ITS | Encounter Summary ---
Author Name Unknown Organization [facility] Address [address] [place] [address] Care Team Providers Care Carbon Grinder Name Role Phone Unassigned, Pcp Primary Care Provider Unavailabl e Encounter Details Date Type Department Care Team (Late st Contact Info) Description 06/14/2022 2:10 PM CLARIFICATION OPERATOR Ancillary Procedure Department of Dermatology Social History [...] How often do you attend [facility] or buddhist services? More than 4 times per year 06/09/2022 Do you belong to any clubs o r organizations such as sikh groups, unions, fraternal or athletic groups, or [...] Sex Assigned at Female 05/20/2021 9:04 AM CLARIFICATION OPERATOR Gender Identity Female 05/20/2021 9:04 AM CLARIFICATION OPERATOR Sexual Orientation Straight 05/20/2021 9: 04 AM CLARIFICATION OPERATOR documented as of this encounter Plan of Treatment Upcoming Encounters Date Type Department Care Team (Late st Contact Info) Description 08/30/2023 4:00 PM CDT Office Visit Department of Dermatology in [address] [phone] Annabel Jarrell M.D. [address] [place] [phone] Discharge Disposition: Home or Self Care documented as of this encounter Procedures Procedure Name Priority Date/Time Associated Diagnosis Comments DERMATOLOGY IMAGE EXAM Routine 06/14/2022 2:09 PM CLARIFICATION OPERATOR documented in this encounter Results * cheek, right jawline 38-Dermatology Image Exam (06/14/2022 2:09 PM CLARIFICATION OPERATOR) 06/14/2022 2:06 PM CLARIFICATION OPERATOR Narrative IIMS - 06/14/2022 2:09 PM CLARIFICATION OPERATOR This order has been created and auto-finalized to support the import of images acquired without order. The clinical documentation to support these images can be found on the encounter that produced images. Provider Not In System IMG NON RAD IMAGI NG PROCEDURES IIMS NA documented in this encounter Visit Diagnoses Not on filedocumented in this encounter Care Teams Carbon Grinder Relationship Specialty Start Date End Date Unassigned, Pcp PCP - General Family Medicine 01/07/21 documented as of this encounter
--- NOTE | 2023-06-01 13:30 | CRLHL7_ITS ---
For Patients: As a result of the Century Cures Act, medical imaging exams and procedure reports are released immediately into your electronic medical record. You may view this report before your referring provider. If you have questions, please contact your health care provider. DXA BONE MINERAL DENSITY STUDY Reason for exam: Osteoporosis. Current height (in): 64.5. Weight (lb): 158.0 Menopause age: 50. Ethnicity: White. 1. Have you had a previous hip or vertebral fracture? No. 2. Have you had any fractures during your adult life which did not result from significant trauma (e.g., auto accident)? No. 3. Did either of your parents have a hip fracture? Yes. 4. Do you smoke? No. 5. Have you ever taken Glucocorticoids? No. 6. Do you have rheumatoid arthritis? No. 7. Do you have secondary osteoporosis? No. 8. Do you drink 3 or more alcoholic drinks per day? No. 9. Are you being treated for osteoporosis? Yes. 10. Have you ever taken any of the following medications: Actonel, Evista, Fosamax, Miacalcin, Reclast, Boniva, Forteo, HRT (i.e. estrogen/hormone therapy), Protelos, Prolia, Vitamin D, Calcium, other ??? please specify. ANSWER: Yes, Fosamax, Reclast, vitamin D, Cloidine, Lefrazole, calcium. 11. Do you have any of the following medical conditions: Anorexia or bulimia, asthma or emphysema, end stage renal disease, hyperparathyroidism, any seizure disorders, cancer, inflammatory bowel diseases, hysterectomy, other ??? please specify. ANSWER: Yes, cancer, hysterectomy. 12. What was your maximum height (inches)? 66. 13. Do you perform weight bearing exercise regularly? Yes. 14. Do you regularly consume dairy products? Yes. 15. Do you drink caffeinated beverages? No. 16. At what age did your period start? 11. 17. Are you premenopausal? No. 18. How many full term pregnancies have you had? 3. 19. Have you ever missed your period for more than 6 months in a row (not including or menopause)? No. TECHNIQUE: Bone mineral density study was performed using the CV [employer]. FINDINGS: The results of the study expressed as bone mineral density (BMD) are as follows: Lumbar spine L1 to L4: BMD: 0.724 g/cm2. T-score: -2.9. Z-score: -0.8. Neck Left: BMD:0.637 g/cm2. T-score: -1.9. Z-score: -0.1. Right: BMD: 0.604 g/cm2. T-score: -2.2. Z-score: -0.4. Total Left: BMD: 0.875 g/cm2. T-score: -0.5. Z-score: 1.0. Right: BMD: 0.796 g/cm2. T-score: -1.2. Z-score: 0.3. IMPRESSION: Osteoporosis. *Comparison exams done prior to 09/2019 were performed on different unit, [facility]. COMPARISON: Compared with scan of 05/20/2022, the bone mineral density has increased by 2.0 percent at the spine and increased by 4.8 percent at the hip. Renato Hayes M.D. Diagnostic Radiologist [email or web address] SAUL/nereida / be/Dictated by: Renato Hayes MD @ 06/02/2023 12:27:00 PM (Electronically Signed)
== END 2023-06-01 13:11 | disposition home or self-care (01) ==
LOC: RAD 13:10
PROVIDERS: PCP Family Medicine; Visit Provider Family Medicine
DX: M81.0 Age-related osteoporosis without current pathological fracture (principal)
CPT/HCPCS: 77080

== ENCOUNTER 2023-07-04 13:02 | Outpatient (CLI) | payer MEDICARE, OTHER, SELFPAY ==
--- NOTE | 2023-07-04 13:20 | MM_ITS ---
Patient: MARLENE RODRIGUEZ Facility:?[facility] Patient ID:?[id number] Site Patient ID:?[id number]. Site :?[id number] Study:?XRay-Breast Right 3D W/CAD-07/04/2023 2:15:53 PM Ordering Physician:Digna Final Report: BILATERAL SCREENING MAMMOGRAM WITH COMPUTER-AIDED DETECTION AND TOMOSYNTHESIS TECHNIQUE: CC and MLO views were obtained. These mammographic images have been obtained using full-field digital technique. These mammographic images were interpreted with the benefit of computer-aided detection. Breast Tomosynthesis was used in this interpretation. COMPARISON FILM: 06/23/22, 06/22/21, 06/19/20. FINDINGS: The breasts are heterogeneously dense, which may obscure small masses. IMPRESSION: There is no radiographic evidence for malignancy. ASSESSMENT: BI-RADS Category 1: Negative RECOMMENDATION: Routine screening mammogram in 1 year. A lay language report of this examination will be provided to the patient. Renato Hayes M.D. Diagnostic Radiologist [email or web address] DSM/sp R& Transcribed: 3:48 p.m. SP/Dictated by: Renato Hayes MD @ 07/06/2023 10:26:00 AM Signed by:Basilio Hayes MD @07/06/2023 4:01:13 PM (Electronic Signature)
== END 2023-07-04 13:03 | disposition home or self-care (01) ==
PROVIDERS: PCP Family Medicine; Visit Provider Family Medicine
DX: Z12.31 Encounter for screening mammogram for malignant neoplasm of breast (principal); R92.2 Inconclusive mammogram
CPT/HCPCS: 77063; 77067

== ENCOUNTER 2023-09-05 09:50 | Outpatient (RCR) | payer MEDICARE, OTHER, SELFPAY ==
--- NOTE | 2023-06-15 09:06 | ONC.NURNOTE ---
Rx for breast prosthesis faxed to [facility] store [phone].
== END 2023-11-26 23:59 | disposition home or self-care (01) ==
LOC: CCIC 09:50
PROVIDERS: PCP Family Medicine; Visit Provider Physician Assistant
DX: C50.912 Malignant neoplasm of unspecified site of left female breast (principal); Z17.0 Estrogen receptor positive status [ER+]; Z79.811 Long term (current) use of aromatase inhibitors; M81.0 Age-related osteoporosis without current pathological fracture; R06.00 Dyspnea, unspecified; R19.7 Diarrhea, unspecified
CPT/HCPCS: 99214; G0463

== ENCOUNTER 2024-01-02 08:51 | Outpatient (CLI) | payer MEDICARE, OTHER, SELFPAY ==
--- OUTSIDE RECORDS SUMMARY | 2024-01-02 08:54 | XMS_ITS ---
Author Organization [facility] Address [address] [place] [address] Care Team Providers Care Radio Program Checker Name Role Phone Unavailable Unavailable Unavailable Surgery Details Not on file Complications Check Surgery Details section. Procedure Estimated Blood Loss Check Surgery Details section. Procedure Findings Check Surgery Details section. Procedure Specimens Taken Check Surgery Details section.
--- OUTSIDE RECORDS SUMMARY | 2024-01-02 08:54 | XMS_ITS | Encounter Summary ---
Author Organization [facility] Address [address] [place] [address] Care Team Providers Care Risk Control Field Representative Name Role Phone Unassigned, Pcp Primary Care Provider Unavailabl e Reason for Visit * Reason Onset Date Comments dermatology 11/22/2023 Lesion on nose Encounter Details Date Type Department Care Team (Latest Contact Info) Description 11/22/2023 Clinical Communication Department of Dermatology in [address] [phone] Annabel Jarrell M.D. [address] [place] [phone] dermatology (Lesion on nose) Social History Tobacco Use Types Packs/Day Years [...] often do you attend chur ch or bahai services? More than 4 times per year 06/09/2022 Do you belong to any clubs o r organizations such as congregation groups, unions, fraternal or athletic groups, or [...] hard at all 06/09/2022 [facility] - Occupational Stress Questionnaire Answer Date [...] Sex Assigned at Female 05/20/2021 9:[address] BAILIFF Gender Identity Female 05/20/2021 9:[address] BAILIFF Sexual Orientation Straight 05/20/2021 9: [address] BAILIFF documented as of this encounter Plan of Treatment Upcoming Encounters Date Type Department Care Team (Late st Contact Info) Description 02/13/2024 11:15 AM CDT Office Visit Department of Dermatology in [address] [phone] Annabel Jarrell M.D. [address] [place] [address] Discharge Disposition: Home or Self Care documented as of this encounter Visit Diagnoses Not on filedocumented in this encounter Care Teams Risk Control Field Representative Relationship Specialty Start Date End Date Unassigned, Pcp PCP - General Family Medicine 01/07/21 documented as of this encounter
--- OUTSIDE RECORDS SUMMARY | 2024-01-02 08:54 | XMS_ITS | Clinical Summary ---
Author Organization [facility] Address [place], [place] [address] Care Team Providers Care Life Coach Name Role Phone Allen Johnson MD Primary Care Provider Allergies Active Allergy Reactions Criticality Noted Date Comments Dexamethasone (Pf) Other - Describe In Comment Field,Palpitations 05/27/2020 Dizziness (oral dosage only) Midazolam Other - Describe In Comment Field 09/21/2016 does not work well. wears off quickly Naproxen Other - Describe In Comment Field 09/21/2016 Medications Medication Sig Dispensed Refills Start Date End Date Status CALCIUM CARBONATE-VITAMIN D2 ORAL Take 1 Tablet by mouth once daily. Active chlorthalidone (HYGROTON) 25 mg tablet 03/21/2023 Active alendronate (FOSAMAX) 70 mg tablet 70 mg. 06/04/2022 Active chlorhexidine (PERIDEX) 0.12 % solution 05/16/2023 Active cholecalciferol (VITAMIN D3) 50,000 unit capsule Take 50,000 units by mouth once weekly. 08/19/2022 Active cloNIDine HCL (CATAPRES) 0.1 mg tablet 03/21/2023 Active letrozole (FEMARA) 2.5 mg tablet 10/28/2022 Active Magnesium 200 mg tab Take 400 mg by mouth. Active multivitamin (MVI) tablet Take 1 Tablet by mouth once daily. 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 Encounters Date Type Department Care Team Description 11/22/2023 Refill [facility] [address] [place] [address] Robinson Llamas MD Refill Request (Creon) from Last 3 Months Social History Tobacco Use Types Packs/Day Years Used Date Smoking Tobacco: Never Smokeless Tobacco: Never Tobacco Cessation:Counseling Given: Not Answered Social Connections Answer Date Recorded Frequency of Communication with Friends and Fami ly Not on file 08/03/2023 Sex and Gender Information Value Date Recorded Sex Assigned at Not on file Gender Identity Not on file Sexual Orientation Not on file Obstetrics History Last Filed Vital Signs Vital Sign Reading Time Taken Comments Blood Pressure 134/96 08/03/2023 2:33 PM CDT Pulse 65 08/03/2023 2:33 PM CDT Temperature - - Respiratory Rate - - Oxygen Saturation 98% 08/03/2023 2:33 PM CDT Inhaled Oxygen Concentration - - Weight 74 kg (163 lb 3.2 oz) 08/03/2023 2:33 PM CDT Height - - Body Mass Index - - Plan of Treatment Health Maintenance Due Date Last Done Comments Tdap 1964 Depression screening for age 12+ 1965 BMI (ht and wt on same day) for age 18+ 1971 Hepatitis C screening for ag e 18-79 1971 Zoster (shingles) series for age 50+ (1 of 2) 1972 Tetanus booster 1973 Colonoscopy through age 75 1998 Lipids for age 45-75 1998 Mammogram for age 45-75 1998 DEXA/DXA scan for age 65+ 2018 Medicare Wellness for age 65+ 2018 Pneumococcal series for age 65+ (1 of 1 - PCV) 2018 COVID-19 vaccine series ( season) 2023 01/27/2023, 02/15/2022, 08/04/2021, Additional history exists Influenza for age 65+ 12/25/2023 Care Teams Life Coach Relationship Specialty Start Date End Date Allen Johnson MD [address] [place] [address] PCP - General 03/07/07
--- NOTE | 2024-01-02 09:15 | CRLHL7_ITS ---
For Patients: As a result of the Century Cures Act, medical imaging exams and procedure reports are released immediately into your electronic medical record. You may view this report before your referring provider. If you have questions, please contact your health care provider. BILATERAL BREAST MRI WITHOUT AND WITH GADOLINIUM CLINICAL HISTORY: 68 year old female with elevated risk of breast cancer due to personal history of treated left breast cancer. INDICATION FOR BREAST MRI: Screening breast MRI in this high-risk woman. COMPARISON STUDIES: Mammogram 06/23/2022, breast MRI 12/28/2022 and 12/16/2021. CONTRAST: 15 cc of Dotarem. TECHNIQUE: The patient was positioned prone using a breast coil. Multiple imaging sequences were obtained using 1-1.5 mm thick slices with no gap. The image sequences include T2-weighted STIR in the axial plane, T1-weighted nonfat-saturated gradient echo in the axial plane, pre- and post-contrast T1-weighted FLASH 3D with fat suppression in the axial plane, and T1-weighted FLASH high resolution 3D with fat suppression in the sagittal plane. Image post-processing was performed on a [employer] workstation. Complex 3D rendering including maximum intensity projections (MIPS) and volumetric renderings were obtained to optimize visualization of the extent of pathology and relationship to the nipple, skin, and chest wall. This aids in determining feasibility of breast conservation surgery. Subtraction, multiplanar reconstruction, mean curve determination, and angiogenesis mapping were also performed. The study was technically adequate. FINDINGS: Amount of Fibroglandular Tissue: Scattered fibroglandular tissue. Breast Background Enhancement: Minimal. RIGHT Breast: No suspicious areas of enhancement. LEFT Breast: There are post surgical changes of mastectomy. No suspicious areas of enhancement. Lymph Nodes: No adenopathy. IMPRESSIONS AND RECOMMENDATIONS: Benign, there is no MRI evidence of malignancy. Continued annual screening mammography. BI-RADS Category 2: Benign Dictated by Keya Lewis MD @ 01/03/2024 2:44:39 PM/errol ABHIJEET/Dictated by: Keya Lewis MD @ 01/03/2024 2:44:00 PM (Electronically Signed)
== END 2024-01-02 08:52 | disposition home or self-care (01) ==
LOC: MRI 08:52
PROVIDERS: PCP Family Medicine; Visit Provider Physician Assistant
DX: Z12.39 Encounter for other screening for malignant neoplasm of breast (principal); Z85.3 Personal history of malignant neoplasm of breast
CPT/HCPCS: 77049; C8908; C8937; A9575

== ENCOUNTER 2024-01-16 09:58 | Outpatient (CLI) | payer MEDICARE, OTHER, SELFPAY ==
--- OUTSIDE RECORDS SUMMARY | 2024-01-16 10:00 | XMS_ITS | Clinical Summary ---
Author Organization [facility] Address [place], [place] [address] Care Team Providers Care Bindery Library Technical Assistant Name Role Phone Allen Johnson MD Primary [...] 1 Tablet by mouth once daily. 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
--- OUTSIDE RECORDS SUMMARY | 2024-01-16 10:00 | XMS_ITS | Referral Summary ---
Author Organization [facility] Address [address] [place] [address] Care Team Providers Care Technical Writing Lead/Mgr Name Role Phone Unassigned, Pcp Primary Care Provider Unavailabl e Source Comments Patient records contain information from all sites at [facility]. For routine questions regarding patient records, call [phone] during business hours, M-F 8:00 AM - 5:00 PM Central Time. Record requests for emergency care only can be directed to [phone] at any time[address] Encounters Date Type Department Care Team Description 11/22/2023 Clinical Communication Department of Dermatology in [address] [phone] Annabel Jarrell M.D. dermatology (Lesion on nose) from Last 3 Months Allergies Active Allergy Reactions Criticality Noted Date Comments Dexamethasone (Pf) Palpitations,Other (see comments) 05/27/2020 Dizziness (oral dosage only) Midazolam Other (see comments) 09/21/2016 does not work well. wears off quickly Naproxen Other (see comments) 09/21/2016 Medications Medication Sig Dispensed Refills Start Date End Date Status cloNIDine (CATAPRES) 0.1 mg tablet Take 0.2 mg by mouth 2 (two) times a day. 03/10/2018 Active cholecalciferol (VITAMIN D3) 1,000 Unit capsule Take by mouth. 09/21/2016 Active multivitamin tablet Take 1 tablet by mouth daily. Active calcium carbonate-vitamin D2 (OSCAL) 250 (625)-125 mg-unit per tablet Take 1 tablet by mouth daily. Active nystatin (MYCOSTATIN) 100,000 unit/gram cream Apply sparingly to involved area twice daily for approximately 3-4 weeks then stop. 30 g 01/15/2019 Active Additional Information Patient taking differently: As needed, Apply sparingly to involved area twice daily for approximately 3-4 weeks then stop., Reported on 05/22/2021 anastrozole (ARIMIDEX) 1 mg tablet 02/21/2020 Active chlorhexidine (PERIDEX) 0.12 % mouthwash 05/18/2021 Active chlorthalidone (HYGROTON) 25 mg tablet Take 1 tablet (25 mg total) by mouth daily. 90 tablet 3 08/03/2021 Active alendronate (FOSAMAX) 70 mg tablet TAKE 1 TABLET EVERY 7 DAYS WEEKLY ON AN EMPTY STOMACH, REMAIN UPRIGHT FOR AT LEAST 30 MINUTES 12 tablet 3 06/04/2022 Active magnesium 200 mg tablet Take 400 mg by mouth every morning before breakfast. Active letrozole (FEMARA) 2.5 mg tablet Take 2.5 mg by mouth daily. 10/28/2022 Active albuterol 90 mcg/actuation inhaler Inhale 2 puffs every 6 (six) hours as needed for shortness of breath. 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 Prophylactic Use Aromatase Inhibitor 08/03/2021 Osteoporosis 05/22/2021 Immunizations Name Administration Dates Next Due HZV (ZOSTAVAX) 03/18/2017 Influenza high dose QV(65 ye ars or older) (PF) 01/22/2021 Influenza, Seasonal, Injectable 02/19/2008 Influenza, Unspecified 02/19/2008 PCV13 06/24/2016 PPSV23 03/02/2021 RZV (SHINGRIX) 06/22/2019,03/14/2019 Rabies, intramuscular, historical 2012,01/01/2013,12/26/2012,2012,12/18/2012 SARS-COV-2 (COVID-19) - PFIZ ER (Discontinued)(12 years or older) 01/07/2021,06/06/2020,05/16/2020 Td (Adult), adsorbed 06/26/2021,02/11/2006 Tdap 02/01/2012 influenza trivalent high dos e (HD)(PF) 03/14/2019 influenza trivalent vaccine (6 months and older)(PF) 04/29/2014,01/15/2013,02/01/2012,2010 influenza vaccine quad (FLUZONE/FLUARIX) (6 months and [...] week 06/09/2022 How often do you attend [facility] or uatsdin services? More than 4 times per year [...] and heating? Not hard at all 06/09/2022 [facility] - Occupational [...] place to sleep or slept in a skilled nursing (including now)? No 06/09/2022 Nutrition Answer Date [...] Sex Assigned at Female 05/20/2021 9:04 AM GAMING SURVEILLANCE OBSERVER Gender Identity Female 05/20/2021 9:04 AM GAMING SURVEILLANCE OBSERVER Sexual Orientation Straight 05/20/2021 9: 04 AM GAMING SURVEILLANCE OBSERVER Last Filed Vital Signs Vital Sign Reading [...] CDT Office Visit Department of Dermatology in [address] [phone] Annabel Jarrell M.D. [address] [place] [phone] Discharge Disposition: Home or Self Care Procedures Procedure Name Priority Date/Time Associated Diagnosis Comments OUTSIDE MR BREAST Routine 01/02/2024 9:0 5 AM CDT from Last 3 Months Results * MR breast BI wo/w con-Outside MR Breast (01/02/2024 9:05 AM CDT) Narrative IIMS - 01/02/2024 2:03 PM CDT This order has been created and auto-finalized to support the import of outside images. If available, original interpretation can be found on the Media Tab in Chart Review, in Document Viewer, as an image in QREADS or as an Addendum. If a re-interpretation or overread is required please follow defined workflow.?? Provider Not In System IMG MRI PROCEDURE S IIMS NA from Last 3 Months Care Teams Technical Writing Lead/Mgr Relationship Specialty Start Date End Date Unassigned, Pcp PCP - General Family Medicine 01/07/21
--- OUTSIDE RECORDS SUMMARY | 2024-01-16 10:00 | XMS_ITS ---
Author Organization [facility] Address [address] [place] [address] Care Team Providers Care Marketing Ambassador Name Role Phone Unavailable Unavailable Unavailable Surgery Details Not on file Complications Check Surgery Details section. Procedure Estimated Blood Loss Check Surgery Details section. Procedure Findings Check Surgery Details section. Procedure Specimens Taken Check Surgery Details section.
--- OUTSIDE RECORDS SUMMARY | 2024-01-16 10:00 | XMS_ITS | Encounter Summary ---
Author Organization [facility] Address [address] [place] [address] Care Team Providers Care Toll Line Inspector Name Role Phone Unassigned, Pcp Primary Care Provider Unavailabl e Reason for Visit * Reason Onset Date Comments dermatology 11/22/2023 Lesion on nose Encounter Details Date Type Department Care Team (Latest Contact Info) Description 11/22/2023 Clinical Communication Department of Dermatology in [address] [phone] Annabel Jarrell M.D. [address] [place] [phone] dermatology (Lesion on nose) Social History Tobacco [...] often do you attend chur ch or quaker services? More than 4 times per year [...] and heating? Not hard at all 06/09/2022 [facility] Questionnaire Answer Date [...] Sex Assigned at Female 05/20/2021 9:04 AM DIRECTOR REACTOR PROJECTS Gender Identity Female 05/20/2021 9:04 AM DIRECTOR REACTOR PROJECTS Sexual Orientation Straight 05/20/2021 9: 04 AM DIRECTOR REACTOR PROJECTS documented as of this encounter Plan of Treatment Upcoming Encounters Date Type Department Care Team (Late st Contact Info) Description 02/13/2024 11:15 AM CDT Office Visit Department of Dermatology in [address] [phone] Annabel Jarrell M.D. [address] [place] [address] Discharge Disposition: Home or Self Care documented as of this encounter Visit Diagnoses Not on filedocumented in this encounter Care Teams Toll Line Inspector Relationship Specialty Start Date End Date Unassigned, Pcp PCP - General Family Medicine 01/07/21 documented as of this encounter
--- OUTSIDE RECORDS SUMMARY | 2024-01-16 10:00 | XMS_ITS | Clinical Summary ---
Author Organization [facility] Address [address] [place] [address] Care Team Providers Care Mainspring Torque Tester Name Role Phone Unassigned, Pcp Primary Care Provider Unavailabl e Source Comments Patient records contain information from all sites at [facility]. For routine questions regarding patient records, call [phone] during business hours, M-F 8:00 AM - 5:00 PM Central Time. Record requests for emergency care only can be directed to [phone] at any time.[facility] Allergies Active Allergy Reactions Criticality [...] Prophylactic Use Aromatase Inhibitor 08/03/2021 Osteoporosis 05/22/2021 Encounters Date Type Department Care Team Description 11/22/2023 Clinical Communication Department of Dermatology in [address] [phone] Annabel Jarrell M.D. dermatology (Lesion on nose) from Last 3 Months Immunizations Name Administration Dates Next Due HZV [...] week 06/09/2022 How often do you attend [facility] or jewish services? More than 4 times per year 06/09/2022 Do you belong to any clubs o r organizations such as roman catholic groups, unions, fraternal or athletic groups, [...] and heating? Not hard at all 06/09/2022 [facility] - Occupational [...] Sex Assigned at Female 05/20/2021 9:04 AM C WEB DEVELOPER Gender Identity Female 05/20/2021 9:04 AM C WEB DEVELOPER Sexual Orientation Straight 05/20/2021 9: 04 AM C WEB DEVELOPER Last Filed Vital Signs Vital Sign Reading [...] Office Visit Department of Dermatology in [address] [phone] Annabel Jarrell M.D. [address] [place] [address] Discharge Disposition: Home or Self Care Health Maintenance Due Date Last Done Comments CT Colonography 1953 Cologuard 1955 Colonoscopy 1955 Colorectal Cancer Surveillance 1955 Fasting Glucose for Diabetes Screening 1955 Hepatitis C Screening 1955 Mammogram 1955 Depression Screening (Annual PHQ-2) 04/25/2023 Fall Risk Screen (Annual) 04/25/2023 COVID-19 Vaccine (2023-2 5 season) 2023 01/27/2023, 02/15/2022, 08/04/2021, Additional history exists Influenza Vaccine (#1) 2024 , 02/15/2022, 01/22/2021, Additional history exists DTaP,Tdap,and Td Vaccines (4 - Td or Tdap) 03/17/2032 03/17/2022, 06/26/2021, 02/01/2012, Additional history exists Zoster Vaccines Completed 06/22/2019, 02/24, 03/18/2017 Pneumococcal vaccine (65+ years) Completed 03/02/20, 06/24/2016 Procedures Procedure Name Priority Date/Time Associated Diagnosis [...] NA from Last 3 Months Care Teams Mainspring Torque Tester Relationship Specialty Start Date End Date Unassigned, Pcp PCP - General Family Medicine 01/07/21
--- NOTE | 2024-01-16 10:15 | CRLHL7_ITS ---
For Patients: As a result of the Century Cures Act, medical imaging exams and procedure reports are released immediately into your electronic medical record. You may view this report before your referring provider. If you have questions, please contact your health care provider. INDICATION: New daily persistent headaches. COMPARISON: 02/09/2016. TECHNIQUE: Multiplanar T1, T2, FLAIR and diffusion-weighted imaging.. Post gadolinium T1 weighted sequences. FINDINGS: Mild generalized volume loss. Scattered patchy T2/FLAIR signal hyperintensity within the white matter post by hemispheres a nonspecific but likely represent chronic deep white matter small vessel ischemic changes or sequela migraine headache. No intracranial hemorrhage. No abnormal ventricular dilatation. Intracranial vascular flow voids are preserved. No mass effect or midline shift. No restricted diffusion to suggest acute ischemia. No susceptibility artifact of remote hemorrhage. No abnormal enhancement or enhancing lesions. Incidental tiny developmental venous anomaly of the medial left cerebellum. Bilateral orbits are unremarkable. Normal appearing sella. Visualized paranasal sinuses are unremarkable. Bilateral mastoid effusions, right greater left. IMPRESSION: 1. No acute intracranial abnormality 2. Mild generalized volume loss. Scattered patchy T2/FLAIR signal hyperintensity within the white matter of both cerebral hemispheres are nonspecific but may represent chronic deep white matter small vessel ischemic changes and/or sequela of migraine headache 3. No acute or chronic intracranial hemorrhage. 4. No abnormal enhancement or enhancing lesions 5. Bilateral mastoid effusions, right greater than left. Dictated by Micky Durant MD @ 01/17/2024 9:16:48 AM (Electronically Signed)
== END 2024-01-16 09:59 | disposition home or self-care (01) ==
LOC: MRI 09:58
PROVIDERS: PCP Family Medicine; Visit Provider Physician Assistant
DX: G44.52 New daily persistent headache (NDPH) (principal); H74.8X3 Other specified disorders of middle ear and mastoid, bilateral; C50.919 Malignant neoplasm of unspecified site of unspecified female breast
CPT/HCPCS: 70553; A9575

== ENCOUNTER 2024-05-11 10:00 | Outpatient (CLI) | payer MEDICARE, OTHER, SELFPAY | END 2024-05-11 10:01 | disposition home or self-care (01) | LOC: NFLDREF 05-14 02:19 | PROVIDERS: PCP Family Medicine; Referring Provider Family Medicine; Visit Provider Family Medicine | DX: E78.5 Hyperlipidemia, unspecified (principal) | CPT/HCPCS: 80053; 80061 ==

== ENCOUNTER 2024-05-14 11:30 | Outpatient (RCR) | payer MEDICARE, OTHER, SELFPAY ==
--- NOTE | 2024-01-23 14:15 | ONC.NURNOTE ---
Addendum entered by Haydee Wells RN 01/23/24 14:33: Isabel Liu PA-C called and spoke to pt regarding results. Original Note: Isabel Liu PA-C reviewed Brain MRI, she requested nursing fax report to pt's primary care provider, Dr. Simpson.
== END 2024-07-03 23:59 | disposition home or self-care (01) ==
LOC: CCIC 11:30
PROVIDERS: PCP Family Medicine; Visit Provider Physician Assistant
DX: C50.912 Malignant neoplasm of unspecified site of left female breast (principal); Z17.0 Estrogen receptor positive status [ER+]; M81.0 Age-related osteoporosis without current pathological fracture; G44.52 New daily persistent headache (NDPH); Z90.12 Acquired absence of left breast and nipple; Z79.811 Long term (current) use of aromatase inhibitors; M79.622 Pain in left upper arm; R22.30 Localized swelling, mass and lump, unspecified upper limb
CPT/HCPCS: 99215; G0463

== ENCOUNTER 2024-05-23 10:52 | Outpatient (CLI) | payer MEDICARE, OTHER, SELFPAY | END 2024-05-23 10:53 | disposition home or self-care (01) | LOC: US 10:53 | PROVIDERS: PCP Family Medicine; Visit Provider Physician Assistant | DX: R22.30 Localized swelling, mass and lump, unspecified upper limb (principal) | CPT/HCPCS: 76882 ==

== ENCOUNTER 2024-05-25 13:37 | Outpatient (CLI) | payer MEDICARE, OTHER, SELFPAY | END 2024-05-25 13:38 | disposition home or self-care (01) | LOC: RAD 13:38 | PROVIDERS: PCP Family Medicine; Visit Provider Family Medicine | DX: I77.810 Thoracic aortic ectasia (principal); I07.1 Rheumatic tricuspid insufficiency | CPT/HCPCS: 93306 ==

== ENCOUNTER 2024-07-18 13:01 | Outpatient (CLI) | payer MEDICARE, OTHER, SELFPAY ==
--- NOTE | 2024-07-18 13:20 | CRLHL7_ITS ---
For Patients: As a result of the Century Cures Act, medical imaging exams and procedure reports are released immediately into your electronic medical record. You may view this report before your referring provider. If you have questions, please contact your health care provider. BILATERAL SCREENING MAMMOGRAM WITH COMPUTER-AIDED DETECTION AND TOMOSYNTHESIS TECHNIQUE: CC and MLO views were obtained. These mammographic images have been obtained using full-field digital technique. These mammographic images were interpreted with the benefit of computer-aided detection. Breast Tomosynthesis was used in this interpretation. COMPARISON FILM: 07/04/23, 06/23/22, 06/22/21. FINDINGS: There are scattered areas of fibroglandular density. IMPRESSION: There is no radiographic evidence for malignancy. ASSESSMENT: BI-RADS Category 1: Negative RECOMMENDATION: Routine screening mammogram in 1 year. A lay language report of this examination will be provided to the patient. Renato Hayes M.D. Diagnostic Radiologist [email or web address] SP/Dictated by: Renato Hayes MD @ 07/24/2024 12:46:00 PM (Electronically Signed)
== END 2024-07-18 13:02 | disposition home or self-care (01) ==
LOC: MAMMO 13:02
PROVIDERS: PCP Family Medicine; Visit Provider Physician Assistant
DX: Z12.31 Encounter for screening mammogram for malignant neoplasm of breast (principal)
CPT/HCPCS: 77063; 77067

== ENCOUNTER 2024-07-23 14:56 | Outpatient (CLI) | payer MEDICARE, OTHER, SELFPAY | END 2024-07-23 14:57 | disposition home or self-care (01) | LOC: NFLDREF 15:00 | PROVIDERS: PCP Family Medicine; Visit Provider Family Medicine | DX: R55 Syncope and collapse (principal) | CPT/HCPCS: 80048 ==

== ENCOUNTER 2025-01-07 12:48 | Outpatient (CLI) | payer MEDICARE, OTHER, SELFPAY ==
--- NOTE | 2025-01-07 13:00 | CRLHL7_ITS ---
For Patients: As a result of the Century Cures Act, medical imaging exams and procedure reports are released immediately into your electronic medical record. You may view this report before your referring provider. If you have questions, please contact your health care provider. BILATERAL BREAST MRI WITHOUT AND WITH GADOLINIUM CLINICAL HISTORY: Screening high risk INDICATION FOR BREAST MRI: (2) Screening breast MRI in this high-risk woman. COMPARISON STUDIES: MR 01/02/2024 CONTRAST: Dotarem 14 mL intravenous TECHNIQUE: The patient was positioned prone using a breast coil. Multiple imaging sequences were obtained using 1-1.5 mm thick slices with no gap. The image sequences include T2-weighted STIR in the axial plane, T1-weighted nonfat-saturated gradient echo in the axial plane, pre- and post-contrast T1-weighted FLASH 3D with fat suppression in the axial plane, and T1-weighted FLASH high resolution 3D with fat suppression in the sagittal plane. Image post-processing was performed on a [employer] workstation. Complex 3D rendering including maximum intensity projections (MIPS) and volumetric renderings were obtained to optimize visualization of the extent of pathology and relationship to the nipple, skin, and chest wall. This aids in determining feasibility of breast conservation surgery. Subtraction, multiplanar reconstruction, mean curve determination, and angiogenesis mapping were also performed. The study was technically adequate. FINDINGS: Amount of Fibroglandular Tissue: Scattered fibroglandular tissue. Breast Background Enhancement: Minimal. RIGHT Breast: No suspicious enhancement. LEFT Breast: Mastectomy. Lymph Nodes: No abnormal axillary lymph nodes. IMPRESSIONS AND RECOMMENDATIONS: No MR findings for malignancy in the right breast or left chest wall. Continued yearly screening mammography recommended. If screening MRs are indicated recommend that these be offset at six-month intervals with the mammograms. BI-RADS Category 2 Dictated by Aida Kelly MD @ 01/08/2025 3:03:42 PM (Electronically Signed)
== END 2025-01-07 12:49 | disposition home or self-care (01) ==
LOC: MRI 12:49
PROVIDERS: PCP Family Medicine; Visit Provider Physician Assistant
DX: Z12.39 Encounter for other screening for malignant neoplasm of breast (principal)
CPT/HCPCS: 77049; C8908; C8937; A9575

== ENCOUNTER 2025-01-23 09:00 | Outpatient (RCR) | payer MEDICARE, OTHER, SELFPAY | END 2025-02-05 23:59 | disposition home or self-care (01) | LOC: CCIC 09:00 | PROVIDERS: PCP Family Medicine; Visit Provider Internal Medicine Hematology & Oncology | DX: C50.912 Malignant neoplasm of unspecified site of left female breast (principal); Z17.0 Estrogen receptor positive status [ER+]; M81.0 Age-related osteoporosis without current pathological fracture; R23.2 Flushing; Z90.12 Acquired absence of left breast and nipple; Z79.811 Long term (current) use of aromatase inhibitors | CPT/HCPCS: 99213; 99214; 99215; G0463 ==

== ENCOUNTER 2025-01-25 13:30 | Outpatient (CLI) | payer MEDICARE, OTHER, SELFPAY ==
--- NOTE | 2025-01-25 13:45 | CRLHL7_ITS ---
For Patients: As a result of the Century Cures Act, medical imaging exams and procedure reports are released immediately into your electronic medical record. You may view this report before your referring provider. If you have questions, please contact your health care provider. INDICATION: Insect bite with left upper extremity swelling TECHNIQUE: Ultrasound venous duplex upper left extremity. Compression venous exam was performed using cantu-scale, color Doppler, and spectral Doppler analysis. COMPARISON: None. FINDINGS: Left internal jugular vein shows normal compression and waveforms. Left brachiocephalic and subclavian veins show normal waveforms. Left axillary, brachial, basilic and cephalic veins show normal compression and waveforms. Right internal jugular vein shows normal compression and waveforms. IMPRESSION: Normal left upper extremity venous ultrasound, no sign of deep venous thrombosis. Dictated by Fransisco Terrell MD @ 01/25/2025 3:09:33 PM (Electronically Signed)
== END 2025-01-25 13:31 | disposition home or self-care (01) ==
LOC: US 13:31
PROVIDERS: PCP Family Medicine; Visit Provider Internal Medicine Hematology & Oncology
DX: M79.89 Other specified soft tissue disorders (principal)
CPT/HCPCS: 93971